=== PATIENT | male | born 1950 | race Caucasian/White ===

== ENCOUNTER → 2022-02-05 13:22 | Outpatient (BNVA) | payer BC, SELFPAY | PROVIDERS: PCP Nurse Practitioner Family; Visit Provider Nurse Practitioner Family | DX: I67.83 Posterior reversible encephalopathy syndrome (principal); R25.1 Tremor, unspecified; G47.33 Obstructive sleep apnea (adult) (pediatric); G62.9 Polyneuropathy, unspecified; G47.9 Sleep disorder, unspecified ==

== ENCOUNTER 2022-02-12 13:49 | Outpatient (REF) | payer BC, SELFPAY ==
--- NOTE | ~2022-02-12 | MR_ITS ---
EXAMINATION: MRI BRAIN WITHOUT CONTRAST. CLINICAL INFORMATION: Clinical suspicion of posterior reversible encephalopathy. COMPARISON: 10/06/2017 outside MRI. TECHNIQUE: Multiplanar multisequence MR imaging of the brain was done. FINDINGS: BRAIN VOLUME: Mild generalized diffuse brain parenchymal volume loss, similar to the previous MRI. STRUCTURAL: No malformations. 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 Redemonstrated are scattered patchy and punctate zones of FLAIR/T2 signal hyperintensity in the subcortical and deeper white matter of both cerebral hemispheres with areas of confluence in the periatrial regions which have slightly progressed from previous exam consistent with chronic ischemic microangiopathy. There is no convincing evidence for posterior reversible encephalopathy. There is a 7 mm T2 hyperintensity involving the left paracentral lobule in a parasagittal location which is unchanged when compared to the previous study, with no associated mass effect. This is a nonspecific finding. DWI sequence demonstrates no restricted diffusion. Specifically, there is no evidence for acute or subacute cerebral ischemia. No extra-axial fluid collections, space-occupying process or mass effect. Gradient refocused imaging demonstrates no evidence for hemorrhage, hemosiderin staining or abnormal mineral deposition. VENTRICLES AND SUBARACHNOID SPACES: The ventricular system and subarachnoid spaces are consistent with mild volume loss without hydrocephalus stable in appearance. ORBITAL STRUCTURES: Bilateral lens extractions are noted. Otherwise, the visualized orbital structures are grossly unremarkable within the limitations of the study. VASCULAR: Signal voids are noted in the visualized major intracranial vessels. OSSEOUS STRUCTURES, SINUSES/MASTOIDS, EXTRACRANIAL SOFT TISSUES: Mild mucosal thickening in the ethmoid complex with nasal septal deviation is similar to the previous exam. Osseous marrow signal intensity appears within normal limits. Visualized extracranial soft tissue structures appear grossly unremarkable. MR/MR head/brain wo con IMPRESSION: 1. Mild progression of chronic ischemic microangiopathy in the white matter of both cerebral hemispheres since the previous study, with a chronic right occipitotemporal infarct in the right SALESPERSON SEWING MACHINES distribution since the previous exam and a stable tiny remote cerebellar hemispheric infarct on the left. 2. No definite evidence for posterior reversible encephalopathy as questioned clinically. 3. 7 mm nonspecific T2 hyperintense lesion in the left paracentral lobule which is stable from previous MRI, likely a benign finding of indeterminate etiology. 4. Diffuse generalized volume loss without hydrocephalus.
== END 2022-02-12 13:50 | disposition home or self-care (01) ==
LOC: HO.MRI 13:49
PROVIDERS: PCP Nurse Practitioner Family; Visit Provider Nurse Practitioner Family
DX: I67.83 Posterior reversible encephalopathy syndrome (principal); R25.1 Tremor, unspecified; I10 Essential (primary) hypertension
CPT/HCPCS: 70551

== ENCOUNTER → 2022-03-06 13:54 | Outpatient (REF) | payer BC, SELFPAY | LOC: HO.SL 13:54 | PROVIDERS: PCP Nurse Practitioner Family; Visit Provider Nurse Practitioner Family | DX: G47.33 Obstructive sleep apnea (adult) (pediatric) (principal) | CPT/HCPCS: 95806 ==

== ENCOUNTER 2022-06-05 13:40 | Outpatient (REF) | payer BC, SELFPAY ==
--- NOTE | 2022-06-05 08:11 | PFT_ITS ---
Forced vital capacity 92%, FEV1 69%, FEV1/FVC ratio is 55. FEF25/75 35% and MVV is 74%. Post bronchodilator therapy there is no significant improvement. Total lung capacity 97%. Residual volume 112%. Diffusion capacity 55%. CONCLUSION: Moderately severe obstructive airway disorder. There is no significant response to bronchodilator therapy. Clinical correlation is recommended. MD TRANG Guadalupe/MODL / [id number]
== END 2022-06-05 13:41 | disposition home or self-care (01) ==
LOC: HO.RESP 13:40
PROVIDERS: Visit Provider Internal Medicine
DX: J44.9 Chronic obstructive pulmonary disease, unspecified (principal); F17.200 Nicotine dependence, unspecified, uncomplicated
CPT/HCPCS: 94060; 94727; 94729

== ENCOUNTER → 2022-11-05 13:35 | Outpatient (BNVA) | payer BC, SELFPAY | PROVIDERS: PCP Nurse Practitioner Family; Visit Provider Nurse Practitioner Family | DX: Z13.89 Encounter for screening for other disorder (principal) ==

== ENCOUNTER → 2022-12-17 13:41 | Outpatient (BNVA) | payer BC, SELFPAY | PROVIDERS: PCP Nurse Practitioner Family; Visit Provider Internal Medicine | DX: J44.9 Chronic obstructive pulmonary disease, unspecified (principal); G47.34 Idiopathic sleep related nonobstructive alveolar hypoventilation; G47.33 Obstructive sleep apnea (adult) (pediatric); F17.210 Nicotine dependence, cigarettes, uncomplicated | CPT/HCPCS: 94618 ==

== ENCOUNTER → 2023-03-07 11:01 | Outpatient (BNVA) | payer BC, SELFPAY | PROVIDERS: PCP Nurse Practitioner Family; Visit Provider Nurse Practitioner Family ==

== ENCOUNTER 2023-06-19 14:15 | Outpatient (AMB) | payer BC, SELFPAY ==
--- NOTE | 2023-06-19 14:27 | A.OFFVIS_ITS ---
Intake Vital Signs 06/19/23 14:30 BP 114/60 Blood Pressure Location Lt brachial Position Sitting Pulse 79 Pulse Source Pulse Oximeter Pulse Oximetry (%) 93 Oxygen Delivery Method Room Air Intake Visit Reasons: COPD follow-up Allergies pseudoephedrine [From Sudafed] Allergy (Mild, Verified 06/19/23 16:09) Hives trazodone Allergy (Mild, Verified 06/19/23 16:09) Hives nicotene patch Allergy (Unknown, Uncoded 06/19/23 16:09) Rash Medication List - Last Reconciled 06/19/23 by Katelyn Metz MD apixaban (Eliquis) 5 mg PO BID betamethasone dipropionate 0.05% topical clobetasol-calcipotriene 0.05-0.005 % mL topical famotidine 40 mg PO DAILY hydrochlorothiazide 12.5 mg PO DAILY labetalol 200 mg PO BID lorazepam 0.25 - 0.5 mg (0.5 - 1 x 0.5 mg) PO BEDTIME PRN 30 days mecobalamin (vitamin B12) 1,000 mcg PO DAILY mirtazapine 7.5 mg PO BEDTIME 30 days nicotine (polacrilex) 2 mg PO Q2H rosuvastatin 40 mg PO DAILY sildenafil 0 mg PO thiamine HCl (vitamin B1) 100 mg PO DAILY tramadol 50 mg PO BEDTIME umeclidinium-vilanterol 62.5-25 mcg/actuation (Anoro Ellipta) 1 ea PO DAILY Do you need a note to return to daycare/school/sports/work: No HPI COPD follow-up HPI Details THIS PATIENT COMES AFTER 6 MONTHS FOR FOLLOW-UP. HE CLAIMS THAT HE IS DOING WELL WITHOUT ANY ATTACKS OF WHEEZING OR COUGH, HE DOES HAVE MILD SHORTNESS OF BREATH ON EXERTION. HE IS HAPPY WITH THE USE OF ANORO AND CLAIMS THAT IT HAS DEFINITELY IMPROVED HIS BREATHING. HE HAS NOT NEEDED TO USE THE RESCUE INHALER MUCH HE ALSO HAS SLEEP APNEA AND USES CPAP REGULARLY ALONG WITH O2 2 L/MINUTE. HE DOES NOT NEED TO USE OXYGEN DURING THE DAYTIME. HE IS VERY COMPLIANT TO THE USE OF CPAP. HE HAS BEEN A LONG-TIME SMOKER AND FINALLY SINCE 6 WEEKS AGO HAS QUIT COMPLETELY. [facility] Medical History Arthritis COPD (chronic obstructive pulmonary disease) HTN (hypertension) Lymphoma Smoker Tobacco use Surgical History H/O cervical spine surgery Hx of cataract surgery Family History Father Cancer Sister Breast cancer Social History (Updated 03/07/23 @ 11:29 by Christiana Villafana CMA) Household Members: Spouse Alcohol intake: current Alcohol intake frequency: a few times a month Patient Tobacco Use Status: Current someday Tobacco user Tobacco use type: Cigarette Cigarette Packs Per Day: 0.5 Cigarettes Per Day: 4 Current occupational status: retired Review of Systems Const All systems reviewed & are unremarkable except as noted in HPI and below Eyes Reports no additional complaints ENT Reports no additional complaints Card Denies chest pain, Denies irregular heart rhythm and Denies leg edema Resp Reports as per HPI GI Reports no additional complaints Reports no additional complaints Musc Reports arthralgias (Mild) Skin/Breast Details: He has extensive skin discoloration on the right all arm and leg and also on the whole back as a birthmark. 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, s/p treatment with R/TH ) Physical Exam Vital Signs: Last Vital Signs Pulse 79 06/19/23 14:30 BP 114/60 06/19/23 14:30 Pulse Ox 93 06/19/23 14:30 Oxygen Delivery Method Room Air 06/19/23 14:30 Const General: healthy appearing, comfortable, no acute distress, alert and awake Orientation/consciousness: patient oriented x3 HEENT Head: Yes normal to inspection General nose exam: No nasal polyps present and No nasal discharge present Face and sinus: Yes sinuses nontender Mouth: oropharynx normal Throat: Yes posterior oropharynx normal Eyes General: appearance normal, both eyes and all related structures Neck Neck: Yes normal visual inspection, Yes no lymphadenopathy, Yes trachea midline and Yes no JVD Thyroid: Thyroid normal Chest Chest palpation & inspection: normal inspection of the chest, normal palpation of entire chest wall and no tenderness Resp Other: Percussion note is resonant, he has good breath sounds on both sides only slightly distant. No wheezes, rhonchi or crepitations were heard . Cardio Palpation: normal PMI Rate: regular rate Rhythm: regular rhythm Heart sounds: no gallops and no murmurs Peripheral pulses: Peripheral pulses 2+ throughout GI Palpation (GI): Soft to palpation, nontender, No hepatosplenomegaly present and no masses Auscultation: normal bowel sounds Back/Spine/Pelvis Thoracic/Lumbar Spine: thoracic and lumbar spine normal to inspection Skin Other: This gentleman has extensive, [place] skin discoloration the right arm, right leg and the whole back, as congenital claus. Neuro General: patient oriented x3 and no focal motor deficits Cranial nerves: Yes CN's II-XII intact bilaterally Extrem General: Yes normal to inspection, Yes no clubbing, cyanosis or edema and Yes no calf tenderness Psych Appearance: grossly normal and well kempt Speech and movement: Normal speech and movement present Assessment & Plan Assessment & Plan (1) Smoker: Comment: History of 50 pack years of smoking, finally he has quit completely, except for 1 or 2 cigarettes off and on. Counseled that he should go quit completely and for ever. He is well motivated. Code(s): F17.200 - Nicotine dependence, unspecified, uncomplicated (2) COPD (chronic obstructive pulmonary disease): Comment: Because of his long-time smoking he does have features of chronic obstructive disease. PULMONARY FUNCTION TEST CONSISTENT WITH MODERATELY SEVERE OBSTRUCTIVE AIRWAY DISORDER. NO RESPONSE TO BRONCHODILATOR THERAPY. [place]: Patient has been on Anoro Ellipta 1 inhalation daily and subjectively he definitely feels better. Will be continued on the same. 6 minutes walk test is done. He desaturated down to 91% but not below that. So he would not need oxygen for daytime. Code(s): J44.9 - Chronic obstructive pulmonary disease, unspecified (3) Obstructive sleep apnea: Comment: Patient is an establish case of obstructive sleep apnea, being treated with CPAP. He is being [facility] at [facility] sleep medicine service. Code(s): G47.33 - Obstructive sleep apnea (adult) (pediatric) (4) Nocturnal hypoxemia: Comment: This gentleman has evidence of nocturnal hypoxemia even with the use of CPAP. Regionally he was hesitant to go on oxygen but now, he is using it regularly at 2 L/minute. He is also using his CPAP regularly, and sleeps good. Code(s): G47.34 - Idiopathic sleep related nonobstructive alveolar hypoventilation Coding Level of Care Code Est Pt Level 3 (55616) Diagnoses Smoker F17.200 COPD (chronic obstructive pulmonary disease) J44.9 Obstructive sleep apnea G47.33 Nocturnal hypoxemia G47.34
[2023-06-19 14:30] VITALS: BP 114/60; PULSE 79; O2SAT 93
== END 2023-06-19 14:56 | disposition home or self-care (01) ==
PROVIDERS: PCP Nurse Practitioner Family; Visit Provider Internal Medicine
DX: F17.200 Nicotine dependence, unspecified, uncomplicated (principal); J44.9 Chronic obstructive pulmonary disease, unspecified; G47.33 Obstructive sleep apnea (adult) (pediatric); G47.34 Idiopathic sleep related nonobstructive alveolar hypoventilation
CPT/HCPCS: 99213

== ENCOUNTER → 2023-06-19 14:15 | Outpatient (BNVA) | payer BC, SELFPAY | PROVIDERS: Visit Provider Internal Medicine ==

== ENCOUNTER 2023-07-08 14:07 | Outpatient (AMB) | payer BC, SELFPAY ==
--- NOTE | 2023-07-08 14:09 | A.OFFVIS_ITS ---
Intake Vital Signs 07/08/23 14:12 Height 5 ft 6 in Weight 167 lb BMI 27.0 BP 130/72 Blood Pressure Location Rt brachial Position Sitting Pulse 58 Pulse Source Pulse Oximeter Pulse Oximetry (%) 96 Oxygen Delivery Method Room Air Intake Visit Reasons: 4m follow up-Confirmed Intake Note: Patient presents for 4 month follow up. Patient states I've had a lot of stuff going on my sleep is out the window. had surgery on my shoulder,tooth pulled and fractured some ribs from a fall about 3 to 4 weeks ago. Allergies pseudoephedrine [From Sudafed] Allergy (Mild, Verified 07/08/23 14:14) Hives trazodone Allergy (Mild, Verified 07/08/23 14:14) Hives nicotene patch Allergy (Unknown, Uncoded 07/08/23 14:14) Rash HPI HPI Comments History of Present Illness Details 73-yr-old male presents for f/u visit. Pt reports since the last visit, he sustained left rib fx d/t a trip and fall on his deck. He also had an unexpected tooth loss and then a tooth extraction. He then underwent, left shoulder repair on 06/26/23- which was uncomplicated, he plans to start PT once cleared by ortho. He was given Tramadol for the rib pain- which did help him sleep. He states had been complaint w/ his CPAP, although has had decreased use after 06/26/23 when he had the left shoulder surgery. APAP compliance report shows- APAP [id number], max pressure 10.5 cmH2O, average use > 8 hrs, compliance > 4 hrs 60%, residual AHI 3.2/hr (central 1.7 and obstructive 1.1). PFSH Medical History Arthritis COPD (chronic obstructive pulmonary disease) HTN (hypertension) Lymphoma Smoker Tobacco use Surgical History Hx of cataract surgery H/O cervical spine surgery Family History Father Cancer Sister Breast cancer Social History Household Members: Spouse Alcohol intake: current Alcohol intake frequency: a few times a month Patient Tobacco Use Status: Current someday Tobacco user Tobacco use type: Cigarette Cigarette Packs Per Day: 0.5 Cigarettes Per Day: 4 Current occupational status: retired Review of Systems Const All systems reviewed & are unremarkable except as noted in HPI and below Physical Exam Vital Signs: Last Vital Signs Pulse 58 07/08/23 14:12 BP 130/72 07/08/23 14:12 Pulse Ox 96 07/08/23 14:12 Oxygen Delivery Method Room Air 07/08/23 14:12 BMI result Body Mass Index 27.0 Const General: cooperative and no acute distress Orientation/consciousness: patient oriented x3 HEENT Head: Yes normocephalic Resp Effort & Inspection: normal respiratory effort and able to speak in complete sen tences Neuro General: patient oriented x3, gait normal and CN's II-XI intact bilaterally Cognition (Neuro): normal cognition Motor exam (neuro): 5/5 motor strength present throughout Psych Appearance: grossly normal Mental Status: mental status grossly normal Speech and movement: Normal speech and movement present Affect: normal affect Attitude: cooperative Thought process: Normal thought process present Thought content: Normal thought content present Insight: Good insight present (Psych) Judgement: Good judgement present (Psych) Assessment & Plan Assessment & Plan (1) Obstructive sleep apnea: Comment: Patient is an establish case of obstructive sleep apnea, being treated with CPAP. He is being followed at [facility] sleep medicine service. Code(s): G47.33 - Obstructive sleep apnea (adult) (pediatric) (2) Sleep disorder: Code(s): G47.9 - Sleep disorder, unspecified (3) Tremor: Code(s): R25.1 - Tremor, unspecified Plan Continue APAP 5-20 cmH2O nightly > 4 hrs. Continue nocturnal supplemental O2 at 2lpm via in-line APAP. Continue Mirtazapine 7.5mg qhs- around 11pm-12am. Monitor tremor. f/u in 4 months or sooner prn. Coding Level of Care Code Est Pt Level 4 (34382) Diagnoses Obstructive sleep apnea G47.33 Sleep disorder G47.9 Tremor R25.1
[2023-07-08 14:12] VITALS: BP 130/72; PULSE 58; O2SAT 96; BMI 27.0
== END 2023-07-08 14:54 | disposition home or self-care (01) ==
PROVIDERS: PCP Nurse Practitioner Family; Visit Provider Nurse Practitioner Family
DX: G47.33 Obstructive sleep apnea (adult) (pediatric) (principal); G47.9 Sleep disorder, unspecified; R25.1 Tremor, unspecified
CPT/HCPCS: 99214

== ENCOUNTER → 2023-07-08 14:07 | Outpatient (BNVA) | payer BC, SELFPAY | PROVIDERS: PCP Nurse Practitioner Family; Visit Provider Nurse Practitioner Family ==

== ENCOUNTER 2023-12-23 14:47 | Outpatient (AMB) | payer BC, SELFPAY ==
--- NOTE | 2023-12-23 15:18 | MHC.OFFVIS ---
Vital Signs 12/23/23 15:19 Height 5 ft 6 in Weight 174 lb BMI 28.1 BP 102/64 Pulse 61 Pulse Source Pulse Oximeter Pulse Oximetry (%) 97 Oxygen Delivery Method Room Air Intake Visit Reasons: COPD follow-up Intake Note: pt is here for follow up and states he is feeling good. Practice Coordinator Required: No Allergies pseudoephedrine [From Sudafed] Allergy (Mild, Verified 12/23/23 15:23) Hives trazodone Allergy (Mild, Verified 12/23/23 15:23) Hives nicotene patch Allergy (Unknown, Uncoded 12/23/23 15:23) Rash HPI HPI COPD follow-up: Details: MR. GONZALEZ , 73 YEARS OLD, IS HERE FOR FOLLOW-UP FOR HIS COPD. HE CLAIMS THAT HIS BREATHING IS HOLDING VERY STABLE, HE DOES USE ANORO ELLIPTA EVERY DAY AND HARDLY NEEDS TO USE THE ALBUTEROL. HE HAS VERY LITTLE COUGH. DENIES ANY SHORTNESS OF BREATH ON EXERTION HE DENIES ANY ATTACKS OF WHEEZING. LUCKILY HE HAS HAD NO RESPIRATORY INFECTION. HE QUIT SMOKING IN 2022 AND AFTER THAT, HAS SMOKED ONLY 1 CIGARETTE ONCE IN A WHILE. HE HAS NICOTINE PATCH AT HOME BUT USES ONLY IF HE GETS AN URGE TO SMOKE. HE IS ALSO CASE OF OBSTRUCTIVE SLEEP APNEA USING CPAP AT NIGHT WELL O2 2 L/MINUTE ALONG WITH THE CPAP. FOR HIS CPAP HE IS BEING FOLLOWED BY THE SLEEP MEDICINE SERVICE . [facility] Medical History Smoker HTN (hypertension) Tobacco use COPD (chronic obstructive pulmonary disease) Lymphoma Arthritis Surgical History Hx of cataract surgery H/O cervical spine surgery Family History Father Cancer Sister Breast cancer Social History Household Members: Spouse Alcohol intake: current Alcohol intake frequency: a few times a month Patient Tobacco Use Status: Former Tobacco user Tobacco use type: Cigarette Cigarette Packs Per Day: 0.5 Cigarettes Per Day: 4 Current occupational status: retired Review of Systems Const All systems reviewed & are unremarkable except as noted in HPI and below Eyes Reports no additional complaints ENT Reports no additional complaints Card Denies chest pain, Denies irregular heart rhythm and Denies leg edema Resp Reports as per HPI GI Reports no additional complaints Reports no additional complaints Musc Reports arthralgias (Mild) Skin/Breast Details: He has extensive skin discoloration on the right all arm and leg and also on the whole back as a birthmark. 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, s/p treatment with R/TH ) Physical Exam Vital Signs: Last Vital Signs Pulse 61 12/23/23 15:19 BP 102/64 12/23/23 15:19 Pulse Ox 97 12/23/23 15:19 Oxygen Delivery Method Room Air 12/23/23 15:19 BMI result Body Mass Index 28.1 Const General: healthy appearing, comfortable, no acute distress, alert and awake Orientation/consciousness: patient oriented x3 HEENT Head: Yes normal to inspection General nose exam: No nasal polyps present and No nasal discharge present Face and sinus: Yes sinuses nontender Mouth: oropharynx normal Throat: Yes posterior oropharynx normal Eyes General: appearance normal, both eyes and all related structures Neck Neck: Yes normal visual inspection, Yes no lymphadenopathy, Yes trachea midline and Yes no JVD Thyroid: Thyroid normal Chest Chest palpation & inspection: normal inspection of the chest, normal palpation of entire chest wall and no tenderness Resp Other: Percussion note is resonant, he has good breath sounds on both sides only slightly distant. No wheezes, rhonchi or crepitations were heard . Cardio Palpation: normal PMI Rate: regular rate Rhythm: regular rhythm Heart sounds: no gallops and no murmurs Peripheral pulses: Peripheral pulses 2+ throughout GI Palpation (GI): Soft to palpation, nontender, No hepatosplenomegaly present and no masses Auscultation: normal bowel sounds Back/Spine/Pelvis Thoracic/Lumbar Spine: thoracic and lumbar spine normal to inspection Skin Other: This gentleman has extensive, [place] skin discoloration the right arm, right leg and the whole back, as congenital claus. Neuro General: patient oriented x3 and no focal motor deficits Cranial nerves: Yes CN's II-XII intact bilaterally Extrem General: Yes normal to inspection, Yes no clubbing, cyanosis or edema and Yes no calf tenderness Psych Appearance: grossly normal and well kempt Speech and movement: Normal speech and movement present Assessment & Plan Assessment & Plan (1) COPD (chronic obstructive pulmonary disease): Comment: PULMONARY FUNCTION TEST CONSISTENT WITH MODERATELY SEVERE OBSTRUCTIVE AIRWAY DISORDER. NO RESPONSE TO BRONCHODILATOR THERAPY. COPD IS STAYING CONTROLLED AND STABLE. HE HAS HAD NO ACUTE EXACERBATIONS. 6 minutes walk test is done. He desaturated down to 91% but not below that. So he would not need oxygen for daytime. Code(s): J44.9 - Chronic obstructive pulmonary disease, unspecified Category: Medical Plan: TX: Patient has been on Anoro Ellipta 1 inhalation daily and subjectively he definitely feels better. ALBUTEROL HFA WHICH HE USES ONLY RARELY. (2) Nocturnal hypoxemia: Comment: This gentleman has evidence of nocturnal hypoxemia even with the use of CPAP. Regionally he was hesitant to go on oxygen but now, he is using it regularly at 2 L/minute. He is also using his CPAP regularly, and sleeps good. Code(s): G47.34 - Idiopathic sleep related nonobstructive alveolar hypoventilation Category: Medical Plan: CONTINUE O2 2 L/MINUTE ALONG WITH THE CPAP AT NIGHT. MAY USE P.R.N. FOR SHORT PERIODS DURING THE DAYTIME (3) Smoker: Comment: History of 50 pack years of smoking, finally he has quit completely SINCE LAST YEAR, except for 1 or 2 cigarettes off and on. He is well motivated. Code(s): F17.200 - Nicotine dependence, unspecified, uncomplicated Category: Social Hx Plan: COUNSELED THAT HE SHOULD THROAT WAY THE CIGARETTES, AND DO NOT GO BACK TO SMOKING AT ALL HE DOES GET LOW DOES CT SCAN OF HIS LUNGS ON A YEARLY BASIS AT [facility] Coding Level of Care Code Est Pt Level 3 (27371) Diagnoses COPD (chronic obstructive pulmonary disease) J44.9 Nocturnal hypoxemia G47.34 Smoker F17.200
[2023-12-23 15:19] VITALS: BP 102/64; PULSE 61; O2SAT 97; BMI 28.1
== END 2023-12-23 15:57 | disposition home or self-care (01) ==
PROVIDERS: PCP Nurse Practitioner Family; Visit Provider Internal Medicine
DX: J44.9 Chronic obstructive pulmonary disease, unspecified (principal); G47.34 Idiopathic sleep related nonobstructive alveolar hypoventilation; F17.200 Nicotine dependence, unspecified, uncomplicated
CPT/HCPCS: 99213

== ENCOUNTER → 2023-12-23 14:47 | Outpatient (BNVA) | payer BC, SELFPAY | PROVIDERS: PCP Nurse Practitioner Family; Visit Provider Internal Medicine ==

== ENCOUNTER 2024-06-23 13:55 | Outpatient (AMB) | payer BC, SELFPAY ==
[2024-06-23 14:08] VITALS: BP 160/80; PULSE 60; O2SAT 97; BMI 28.1
--- NOTE | 2024-06-23 14:08 | A.OFFVIS_ITS ---
Vital Signs 06/23/24 14:08 Height 5 ft 6 in Weight 174 lb BMI 28.1 BP 160/80 H Blood Pressure Location Lt brachial Position Sitting Pulse 60 Pulse Source Pulse Oximeter Pulse Oximetry (%) 97 Oxygen Delivery Method Room Air Intake Visit Reasons: COPD Intake Note: pt is here for follow up of BRENDA and COPD, Correctional Manager Required: No Allergies pseudoephedrine [From Sudafed] Allergy (Mild, Verified 06/23/24 14:20) Hives trazodone Allergy (Mild, Verified 06/23/24 14:20) Hives nicotene patch Allergy (Unknown, Uncoded 06/23/24 14:20) Rash Medication List - Last Reconciled 06/23/24 by Katelyn Metz MD apixaban (Eliquis) 5 mg PO BID betamethasone dipropionate 0.05% topical clobetasol-calcipotriene 0.05-0.005 % mL topical famotidine 40 mg PO DAILY labetalol 200 mg PO BID mecobalamin (vitamin B12) 1,000 mcg PO DAILY rosuvastatin 40 mg PO DAILY sildenafil 0 mg PO thiamine HCl (vitamin B1) 100 mg PO DAILY umeclidinium-vilanterol 62.5-25 mcg/actuation (Anoro Ellipta) 1 ea PO DAILY Do you need a note to return to daycare/school/sports/work: No HPI HPI COPD: Details: This 73 years old gentleman is here for his 6 months follow-up, for COPD. He also is a case of obstructive sleep apnea and uses CPAP very regularly. He was being followed by the sleep medicine services but has not seen them for more than a year. He would like to be followed up for his CPAP also over here at our office. He had quit smoking for a while but in the last few months he has been dealing with his 's sickness. His had a stroke , recovered almost completely and sent to rehab facility, from where she was admitted a few times with acute respiratory distress at at 1 [facility] at [facility] [place] requiring intubation. Now she is home and doing fairly well. During these stressful few months he started smoking again. Now smoking up to 10 cigarettes a day and is trying to down as much as possible. Breathing has remained very stable and he hardly needs to use the rescue inhaler. [facility] Medical History Smoker HTN (hypertension) Tobacco use COPD (chronic obstructive pulmonary disease) Lymphoma Arthritis Surgical History Hx of cataract surgery H/O cervical spine surgery Family History Father Cancer Sister Breast cancer Social History Household Members: Spouse Alcohol intake: current Alcohol intake frequency: a few times a month Patient Tobacco Use Status: Current everyday Tobacco user Tobacco use type: Cigarette Cigarette Packs Per Day: 0.5 Cigarettes Per Day: 10 Current occupational status: retired Review of Systems Const All systems reviewed & are unremarkable except as noted in HPI and below Eyes Reports no additional complaints ENT Reports no additional complaints Card Denies chest pain, Denies irregular heart rhythm and Denies leg edema Resp Reports as per HPI GI Reports no additional complaints Reports no additional complaints Musc Reports arthralgias (Mild) Skin/Breast Details: He has extensive skin discoloration on the right all arm and leg and also on the whole back as a birthmark. 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, s/p treatment with R/TH ) Physical Exam Vital Signs: Last Vital Signs Pulse 60 06/23/24 14:08 BP 160/80 H 06/23/24 14:08 Pulse Ox 97 06/23/24 14:08 Oxygen Delivery Method Room Air 06/23/24 14:08 BMI result Body Mass Index 28.1 Const General: healthy appearing, comfortable, no acute distress, alert and awake Orientation/consciousness: patient oriented x3 HEENT Head: Yes normal to inspection General nose exam: No nasal polyps present and No nasal discharge present Face and sinus: Yes sinuses nontender Mouth: oropharynx normal Throat: Yes posterior oropharynx normal Eyes General: appearance normal, both eyes and all related structures Neck Neck: Yes normal visual inspection, Yes no lymphadenopathy, Yes trachea midline and Yes no JVD Thyroid: Thyroid normal Chest Chest palpation & inspection: normal inspection of the chest, normal palpation of entire chest wall and no tenderness Resp Other: Percussion note is resonant, he has good breath sounds on both sides only slightly distant. No wheezes, rhonchi or crepitations were heard . 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 Neuro General: patient oriented x3 and no focal motor deficits Cranial nerves: Yes CN's II-XII intact bilaterally Extrem General: Yes normal to inspection, Yes no clubbing, cyanosis or edema and Yes no calf tenderness Psych Appearance: grossly normal and well kempt Speech and movement: Normal speech and movement present Results Reviewed Results Reviewed: Compliance report for the last 30 nights is reviewed. He has used 30/30 nights,. 100% Average use it per night 9 hours 39 minute. There is no significant air leak and pressure used is between 7-9 cm. Residual AHI 0.8 Assessment & Plan Assessment & Plan (1) COPD (chronic obstructive pulmonary disease): Comment: PULMONARY FUNCTION TEST CONSISTENT WITH MODERATELY SEVERE OBSTRUCTIVE AIRWAY DISORDER. NO RESPONSE TO BRONCHODILATOR THERAPY. COPD IS STAYING CONTROLLED AND STABLE. HE HAS HAD NO ACUTE EXACERBATIONS. On his last visit ,6 minutes walk test is done. He desaturated down to 91% but not below that. So he would not need oxygen for daytime. Code(s): J44.9 - Chronic obstructive pulmonary disease, unspecified Category: Medical Plan: Counseled and stressed that he should quit smoking completely, he may do it by cutting down the number of cigarettes gradually. He plans to finally quit smoking. (2) Smoker: Comment: History of 50 pack years of smoking, he had quit smoking last year what to in the past few months has started smoking again ,at present half pack a day . He states that he went back to smoking to alleviate his stress and anxiety when his suffered from acute stroke. Code(s): F17.200 - Nicotine dependence, unspecified, uncomplicated Category: Social Hx Plan: Counseled that he should quit smoking (3) Nocturnal hypoxemia: Comment: This gentleman has evidence of nocturnal hypoxemia even with the use of CPAP. Originally he was hesitant to go on oxygen but now, he is using it regularly at 2 L/minute along with the CPAP. Code(s): G47.34 - Idiopathic sleep related nonobstructive alveolar hypoventilation Category: Medical Plan: Advise that he should use O2 2 L/minute along with the CPAP at night (4) Obstructive sleep apnea: Comment: Patient is an established case of obstructive sleep apnea, being treated with CPAP. His compliance is excellent, he benefits from the use of CPAP plus O2 2 L/minute along with his CPAP. Code(s): G47.33 - Obstructive sleep apnea (adult) (pediatric) Category: Medical Plan: Advised to continue using the CPAP regularly. He is getting supplies on time. He wants us to manage his CPAP for the supplies, and we will be glad to take care of the. Coding Level of Care Code Est Pt Level 3 (86932) Diagnoses COPD (chronic obstructive pulmonary disease) J44.9 Smoker F17.200 Nocturnal hypoxemia G47.34 Obstructive sleep apnea G47.33
== END 2024-06-23 14:35 | disposition home or self-care (01) ==
PROVIDERS: PCP Family Medicine; Visit Provider Internal Medicine
DX: J44.9 Chronic obstructive pulmonary disease, unspecified (principal); F17.200 Nicotine dependence, unspecified, uncomplicated; G47.34 Idiopathic sleep related nonobstructive alveolar hypoventilation; G47.33 Obstructive sleep apnea (adult) (pediatric)
CPT/HCPCS: 99213

== ENCOUNTER → 2024-06-23 13:55 | Outpatient (BNVA) | payer BC, SELFPAY | PROVIDERS: PCP Nurse Practitioner Family; Visit Provider Internal Medicine ==

== ENCOUNTER 2024-12-23 14:01 | Outpatient (AMB) | payer BC, SELFPAY ==
[2024-12-23 14:04] VITALS: BP 130/82; PULSE 56; O2SAT 96; BMI 28.3
--- NOTE | 2024-12-23 14:04 | A.OFFVIS_ITS ---
Vital Signs 12/23/24 14:04 Height 5 ft 6 in Weight 175 lb 4.28 oz BMI 28.3 BP 130/82 Blood Pressure Location Lt brachial Pulse 56 Pulse Source Pulse Oximeter Pulse Oximetry (%) 96 Oxygen Delivery Method Room Air Intake Visit Reasons: COPD Intake Note: pt is here for follow up and states he does have more coughing especially in am with phlegm, please put refills on Anoro so he does not have wait each month at the pharmacy Sourcing Assistant Required: No Allergies pseudoephedrine [From Sudafed] Allergy (Mild, Verified 12/23/24 14:23) Hives trazodone Allergy (Mild, Verified 12/23/24 14:23) Hives nicotene patch Allergy (Unknown, Uncoded 12/23/24 14:23) Rash Medication List - Last Reconciled 12/23/24 by Katelyn Metz MD apixaban (Eliquis) 5 mg PO BID betamethasone dipropionate 0.05% topical clobetasol-calcipotriene 0.05-0.005 % mL topical famotidine 40 mg PO DAILY labetalol 200 mg PO BID mecobalamin (vitamin B12) 1,000 mcg PO DAILY rosuvastatin 40 mg PO DAILY sildenafil 0 mg PO thiamine HCl (vitamin B1) 100 mg PO DAILY umeclidinium-vilanterol 62.5-25 mcg/actuation (Anoro Ellipta) 1 ea PO DAILY Do you need a note to return to daycare/school/sports/work: No HPI HPI COPD: Details: MR. GONZALEZ 74 YEARS OLD, COMES AFTER 6 MONTHS FOR HIS FOLLOW-UP. HE IS BEING TREATED FOR MODERATELY SEVERE OBSTRUCTIVE LUNG DISEASE AND ALSO FOR SLEEP APNEA. BREATHING GAONA HAS REMAINED VERY STABLE WITHOUT ANY ACUTE EXACERBATION. HE STILL VEERS A MASK MOST OF THE TIME WHEN HE GOES OUTDOORS, BECAUSE HE DOES NOT WANT TO BRING ANY BUGS HOME HIS HAS TRACHEOSTOMY. HIS ALSO USES OXYGEN VIA TRACH , NEEDS FREQUENT SUCTIONING, AND HUMIDIFICATION. HE HAS NOT BEEN ABLE TO USE OXYGEN ALONG WITH THE CPAP AT NIGHT, BECAUSE HIS O2 CONCENTRATOR MAKES LOT OF NOISE , AND HE WANTS TO MAKE SURE THAT HE CAN HEAR ANY INCIDENCE IS HAPPENING TO HIS WHO HAS SLEEPS ON THE 1ST FLOOR , WHILE HE SLEEPS ON THE 2ND FLOOR, [facility] Medical History Smoker HTN (hypertension) Tobacco use COPD (chronic obstructive pulmonary disease) Lymphoma Arthritis Surgical History Hx of cataract surgery H/O cervical spine surgery Family History Father Cancer Sister Breast cancer Social History Household Members: Spouse Alcohol intake: current Alcohol intake frequency: a few times a month Patient Tobacco Use Status: Current everyday Tobacco user Tobacco use type: Cigarette Cigarette Packs Per Day: 0.5 Cigarettes Per Day: 10 Current occupational status: retired Review of Systems Const All systems reviewed & are unremarkable except as noted in HPI and below Eyes Reports no additional complaints ENT Reports no additional complaints Card Denies chest pain, Denies irregular heart rhythm and Denies leg edema Resp Reports as per HPI GI Reports no additional complaints Reports no additional complaints Musc Reports arthralgias (Mild) Skin/Breast Details: He has extensive skin discoloration on the right all arm and leg and also on the whole back as a birthmark. 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, s/p treatment with R/TH ) Physical Exam Vital Signs: Last Vital Signs Pulse 56 12/23/24 14:04 BP 130/82 12/23/24 14:04 Pulse Ox 96 12/23/24 14:04 Oxygen Delivery Method Room Air 12/23/24 14:04 BMI result Body Mass Index 28.3 Const General: healthy appearing, comfortable, no acute distress, alert and awake Orientation/consciousness: patient oriented x3 HEENT Head: Yes normal to inspection General nose exam: No nasal polyps present and No nasal discharge present Face and sinus: Yes sinuses nontender Mouth: oropharynx normal Throat: Yes posterior oropharynx normal Eyes General: appearance normal, both eyes and all related structures Neck Neck: Yes normal visual inspection, Yes no lymphadenopathy, Yes trachea midline and Yes no JVD Thyroid: Thyroid normal Chest Chest palpation & inspection: normal inspection of the chest, normal palpation of entire chest wall and no tenderness Resp Other: Percussion note is resonant, he has good breath sounds on both sides only slightly distant. No wheezes, rhonchi or crepitations were heard . 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 Neuro General: patient oriented x3 and no focal motor deficits Cranial nerves: Yes CN's II-XII intact bilaterally Extrem General: Yes normal to inspection, Yes no clubbing, cyanosis or edema and Yes no calf tenderness Psych Appearance: grossly normal and well kempt Speech and movement: Normal speech and movement present Assessment & Plan Assessment & Plan (1) COPD (chronic obstructive pulmonary disease): Comment: PULMONARY FUNCTION TEST CONSISTENT WITH MODERATELY SEVERE OBSTRUCTIVE AIRWAY DISORDER. NO RESPONSE TO BRONCHODILATOR THERAPY. COPD IS STAYING CONTROLLED AND STABLE. HE HAS HAD NO ACUTE EXACERBATIONS. Code(s): J44.9 - Chronic obstructive pulmonary disease, unspecified Category: Medical Plan: CONTINUE TO USE ANORO ELLIPTA 1 INHALATION DAILY , PRESCRIPTION IS RENEWED FOR 90 DAYS' SUPPLY IT IT TIME AND 3 REFILLS. HE HAS NOT REQUIRED TO USE THE RESCUE INHALER. (2) Nocturnal hypoxemia: Comment: This gentleman has evidence of nocturnal hypoxemia even with the use of CPAP. He was using O2 2 L/minute along with the CPAP. But now since his 's sickness who has had a permanent trach , he is not using O2 to avoid any noise . Code(s): G47.34 - Idiopathic sleep related nonobstructive alveolar hypoventilation Category: Medical Plan: I think we should do overnight oximetry recording to see if he still needs the use of oxygen. (3) Smoker: Comment: History of 50 pack years of smoking, he had quit 2 years ago but then went back to smoking due to his 's illness and stressful situation. At present he is smoking about 10 cigarettes a day. Code(s): F17.200 - Nicotine dependence, unspecified, uncomplicated Category: Social Hx Plan: Discussed about quitting, he will try to cut down the number of cigarettes. But say is he can not quit completely as he is still under stress. (4) Obstructive sleep apnea: Comment: Patient is an established case of obstructive sleep apnea, being treated with CPAP. His compliance is excellent, he benefits from the use of CPAP plus O2 2 L/minute along with his CPAP. As has been noted above he is currently not using oxygen along with the CPAP. Code(s): G47.33 - Obstructive sleep apnea (adult) (pediatric) Category: Medical Plan: Continue to use CPAP regularly.. Will do overnight oximetry recording N/C if his O2 sat stays in safe range, otherwise he needs to resume using the O2 at night Medications: New umeclidinium-vilanterol 62.5-25 mcg/actuation (Anoro Ellipta) 1 inh inhalation DAILY 60 ea 3RF copd 90 days Coding Level of Care Code Est Pt Level 3 (98830) Diagnoses COPD (chronic obstructive pulmonary disease) J44.9 Nocturnal hypoxemia G47.34 Smoker F17.200 Obstructive sleep apnea G47.33
--- OUTSIDE RECORDS SUMMARY | 2024-12-23 16:28 | XMS_ITS | Clinical Summary ---
Author Organization [facility] Address [address] [place] [address] Care Team Providers Care Licensing Analyst Name Role Phone Unavailable Primary Care Provider Unavailabl e Social History Tobacco Use Types Packs/Day Years Used Date Smoking Tobacco: Never Assessed Sex and Gender Information Value Date Recorded Sex Assigned at Not on file Gender Identity Not on file Sexual Orientation Not on file Plan of Treatment Not on file
== END 2024-12-23 14:24 | disposition home or self-care (01) ==
LOC: HO.HPS 14:02
PROVIDERS: PCP Family Medicine; Visit Provider Internal Medicine
DX: J44.9 Chronic obstructive pulmonary disease, unspecified (principal); G47.34 Idiopathic sleep related nonobstructive alveolar hypoventilation; F17.200 Nicotine dependence, unspecified, uncomplicated; G47.33 Obstructive sleep apnea (adult) (pediatric)
CPT/HCPCS: 99213

== ENCOUNTER 2025-06-21 14:25 | Outpatient (AMB) | payer BC, SELFPAY ==
--- OUTSIDE RECORDS SUMMARY | 2023-05-28 18:20 | XMS_ITS | Encounter Summary ---
Author Organization [facility] Address [address] [place] [address] [place] [phone] Phone Care Team Providers Care Floater Operator Name Role Phone Jeanie Mohan MD Unavailable [phone] Ramos Mcgrath DO Unavailable Carmita Santiago BOILER ROOM OPERATOR Primary Care Provider Viki Melendrez FARM HELPER Unavailable Encounter Details Date Type Department Care Team (Late st Contact Info) Description 05/28/2023 6:20 PM EDT Hospital Encounter [facility] [address] [place] [address] Mayte Verdugo, BOILER ROOM OPERATOR [address] [place] [phone] [email or web address] Social History Tobacco Use Types Packs/Day Years Used Date Smoking Tobacco: Every Day Cigarettes 0.5 50 Started: 05/16/1973; Last attempted to quit: 05/16/2023 Smokeless Tobacco: Never Alcohol Use Standard Drinks/Week Comments Not Currently 4 (1 standard drink = 0.6 oz pure alcohol) drinks 3-4 bourbons every Friday Education Answer Date Recorded Are you interested in more education? Not on rebekah e 12/27/2022 Are you concerned about learning? Not on file 12/27/2022 No 12/27/2022 No 12/27/2022 Digital Access Answer Date Recorded No 01/27/2023 No 01/27/2023 Reliable internet access at home? Not on file 01/27/2023 Device with a working camera? Not on file Intimate Partner Violence Answer Date R ecorded Are you denied basic needs s uch as food, clothing, or medical care? No 10/22/2024 In the past 12 months have y ou been in a relationship with a person who hurts, threatens, or tries to control you? No 10/22/2024 Are you denied basic needs s uch as food, clothing, or medical care? No 10/22/2024 In the past 12 months have y ou been in a relationship with a person who hurts, threatens, or tries to control you? No 10/22/2024 Sex and Gender Information Value Date Recorded Sex Assigned at Male 09/08/2017 9:38 AM EST Legal Sex Male 9:59 PM EDT Gender Identity Male 09/08/2017 9:38 AM EST Sexual Orientation Straight 09/08/2017 9: 38 AM EST documented as of this encounter Functional Status * Calculated C-SSRS Risk Score (Lifetime/Recent) Answer Date of Assessment Author No Risk Indicated 10/22/2024 8:26 AM Eliezer Mahajan RN * [place] Suicide Severity Rating Scale (Screener/Recent Self-Report) Question Answer Date of Assessment Author 1. Wish to be (Past 1 Month) No 10/22/2024 8:26 AM Eliezer Mahajan RN 2. Non-Specific Active Suici greyson Thoughts (Past 1 Month) No 10/22/2024 8:26 AM Eulalio Mahajan RN 6. Suicidal Behavior (Lifetime) No 8:26 AM Eliezer Mahajan RN documented as of this encounter Plan of Treatment Upcoming Encounters Date Type Department Care Team (Latest Contact Info) Description 06/30/2025 Procedure Pass [facility] Admitting Dept Virtual Department [address] [place] [phone] 06/30/2025 2:00 PM EDT Hospital Encounter [facility] Virtual Department [address] [place] [address] Jose Marshall MD [address] [phone] [email or web address] 06/30/2025 2:00 PM EDT - 06/30/2025 2:30 PM EDT Surgery [facility] Admitting Dept Virtual Department [address] [place] [address] Jose Marshall MD [address] [place] [address] [email or web address] ESOPHAGOGASTRODUODENOSCOPY 07/08/2025 2:00 PM EST Office Visit [facility] [address] [place] [address] Ramos Mcgrath DO [address] [place] [address] [email or web address] 07/11/2025 3:00 PM EST Office Visit [facility] [address] [facility] 3rd Floor, [address] [place] [address] Belkis Ratliff PACosmeC [address] [place] [address] [email or web address] 09/07/2025 2:15 PM EST Office Visit [facility] [address] [place] [address] Unknown, Unknown, MD Mckeon, Zabrina Alford, EVAN [address] [place] [phone] Scheduled Procedures Name Priority Associated Diagnoses Date/Ti me ESOPHAGOGASTRODUODENOSCOPY Hx of colonic polyps 06/30/2025 2:00 PM EDT COLONOSCOPY Hx of colonic polyps 06/30/2025 2:00 PM EDT documented as of this encounter Procedures Procedure Name Priority Date/Time Associated Diagnosis Comments XR CHEST PA AND LATERAL 2 VIEWS Urgent/patient waiting 05/28/2023 6:33 PM EDT Fall as cause of accidental injury in home as place of occurrence, initial encounter documented in this encounter Results * XR CHEST PA AND LATERAL 2 VIEWS (05/28/2023 6:33 PM EDT) Anatomical Region Laterality Modality Chest Computed Radiogr aphy 05/28/2023 6:50 PM EDT Impressions 05/28/2023 7:04 PM EDT Acute mildly displaced left posterolateral fourth and fifth rib fractures. ATTESTATION: I, Kait Becerra as teaching physician, have reviewed the images for this case and if necessary edited the report originally created by Goldie Bruner. Narrative 05/28/2023 7:04 PM EDT XR CHEST PA AND LATERAL 2 VIEWS, XR RIBS 3 OR MORE VIEWS WITH PA CHEST (RIGHT) COMPARISON: CT CHEST WITH CONTRAST CHEST FINDINGS: Devices/Tubes/Lines: Loop recorder projects over the left lower chest. Lungs: Mild bibasilar atelectasis. No focal consolidation or pulmonary edema. Pleura: No pleural effusion or pneumothorax. Heart/Mediastinum: Normal heart size. Tortuous thoracic aorta. Bones/Soft Tissues: Acute mildly displaced left posterolateral fourth and fifth rib fractures. RIBS: Acute mildly displaced left posterolateral fourth and fifth rib fractures. No displaced right rib fractures. Procedure Note Kait Becerra MD - 05/28/2023 XR CHEST PA AND LATERAL 2 VIEWS, XR RIBS 3 OR MORE VIEWS WITH PA CHEST(RIGHT) COMPARISON: CT CHEST WITH CONTRAST 2022- CHEST FINDINGS: Devices/Tubes/Lines: Loop recorder projects over the left lower chest. Lungs: Mild bibasilar atelectasis. No focal consolidation or pulmonaryedema. Pleura: No pleural effusion or pneumothorax. Heart/Mediastinum: Normal heart size. Tortuous thoracic aorta. Bones/Soft Tissues: Acute mildly displaced left posterolateral fourth andfifth rib fractures. RIBS: Acute mildly displaced left posterolateral fourth and fifth ribfractures. No displaced right rib fractures. IMPRESSION: Acute mildly displaced left posterolateral fourth and fifth ribfractures. ATTESTATION: I, Kait Becerra as teaching physician, have reviewed theimages for this case and if necessary edited the report originally createdby Goldie Bruner. Mayte Verdugo BOILER ROOM OPERATOR IMG XR CHEST Final Resul t documented in this encounter Visit Diagnoses Not on filedocumented in this encounter Additional Health Concerns Infection Onset Date Last Indicated Resolved Time CDiff-Risk 03/29/2025 03/29/2025 04/05/2025 1:21 AM EDT documented as of this encounter Care Teams Floater Operator Relationship Specialty Start Date End Date Carmita Santiago CNP [address] [place] [phone] [email or web address] PCP - General Family Medicine 12/19/21 07/21/23 Jeanie Mohan MD [address] [place] [address] Orthopedics & Sports Medicine, [facility] [place] [address] [email or web address] Historical LMR Provider 06/19/17 Ramos Mcgrath DO [address] [place] [address] [email or web address] Primary Oncologist Hematology and Oncology 12/15/21 Viki Melendrez FNP [address] [place] [address] [email or web address] Nurse Practitioner Oncology 03/06/22 documented as of this encounter Additional Source Comments The information contained in this document represents components of the legal health record. It is not the complete legal health record.[facility]
--- OUTSIDE RECORDS SUMMARY | 2023-05-28 18:22 | XMS_ITS | Encounter Summary ---
Author Organization [facility] Address [address] [place] [address] [place] [address] Phone Care Team Providers Care Dynamite Reclaimer Name Role Phone Jeanie Mohan MD Unavailable [phone] Ramos Mcgrath DO Unavailable Carmita Santiago FLAG DECORATOR Primary Care Provider Viki Melendrez INTERNATIONAL BANKER Unavailable [phone] Encounter Details Date Type Department Care Team (Late st Contact Info) Description 05/28/2023 6:22 PM EDT Hospital Encounter [facility] [address] [place] [address] Mayte Verdugo, FLAG DECORATOR [address] [place] [address] [email or web address] Social History Tobacco Use Types Packs/Day Years [...] 10/22/2024 8:26 AM Eliezer Mahajan RN * [place] Suicide Severity Rating Scale (Screener/Recent Self-Report) Question [...] Pass [facility] Admitting [facility] Virtual Department [address] [place] [phone] 06/30/2025 2:00 PM EDT Hospital Encounter [facility] Virtual Department [address] [place] [address] Jose Marshall MD [address] [address] [email or web address] 06/30/2025 2:00 PM EDT - 06/30/2025 2:30 PM EDT Surgery [facility] Admitting Dept Virtual Department [address] [place] [address] Jose Marshall MD [address] [place] [address] [email or web address] ESOPHAGOGASTRODUODENOSCOPY 07/08/2025 2:00 PM EST Office Visit [facility] [address] [place] [address] Ramos Mcgrath DO [address] [place] [address] [email or web address] 07/11/2025 3:00 PM EST Office Visit [facility] [address] [facility] 3rd Floor, [address] [place] [address] Belkis Ratliff PA-C [address] [place] [address] [email or web address] 09/07/2025 2:15 PM EST Office Visit [facility] 10 [place] [address] Unknown, Unknown, MD Mckeon, Zabrina Alford, EVAN [address] [place] [address] Scheduled Procedures Name Priority Associated Diagnoses Date/Ti me ESOPHAGOGASTRODUODENOSCOPY Hx of colonic polyps 06/30/2025 2:00 PM EDT COLONOSCOPY Hx of colonic polyps 06/30/2025 2:00 PM EDT documented as of this encounter Procedures Procedure Name Priority Date/Time Associated Diagnosis Comments XR RIBS 3 OR MORE VIEWS WITH PA CHEST (RIGHT) Urgent/patient waiting 05/28/2023 6:34 PM EDT Fall as cause of accidental injury in home as place of occurrence, initial encounter documented in this encounter Results * XR RIBS 3 OR MORE VIEWS WITH PA CHEST (RIGHT) (05/28/2023 6:34 PM EDT) Anatomical Region Laterality Modality Chest [...] report originally createdby Goldie Bruner. Mayte Verdugo FLAG DECORATOR IMG XR CHEST Final Resul t documented in this encounter Visit Diagnoses Not on filedocumented in this encounter Additional Health Concerns Infection Onset Date Last Indicated Resolved Time CDiff-Risk 03/29/2025 03/29/2025 04/05/2025 1:21 AM EDT documented as of this encounter Care Teams Dynamite Reclaimer Relationship Specialty Start Date End Date Carmita Santiago CNP [address] [place] [phone] [email or web address] PCP - General Family Medicine 12/19/21 07/21/23 Jeanie Mohan MD [address] [place] [address] Orthopedics & Sports Medicine, [facility] [place] [address] [email or web address] Historical LMR Provider 06/19/17 Ramos Mcgrath DO [address] [place] [address] [email or web address] Primary Oncologist Hematology and Oncology 12/15/21 Viki Melendrez FNP [address] [place] [address] [email or web address] Nurse Practitioner Oncology 03/06/22 documented as of this encounter Additional Source Comments The information contained in this document represents components of the legal health record. It is not the complete legal health record.[facility]
--- NOTE | 2025-06-21 14:40 | MHC.OFFVIS ---
Vital Signs 06/21/25 14:41 Height 5 ft 6 in Weight 176 lb BMI 28.4 BP 124/78 Blood Pressure Location Lt brachial Position Sitting Pulse 71 Pulse Source Pulse Oximeter Pulse Oximetry (%) 94 Oxygen Delivery Method Room Air Intake Visit Reasons: COPD Intake Note: pt is here for follow up and has a little cough am and pm, during the day he is okay. Labor Custodian Required: No Allergies pseudoephedrine (From Sudafed) Allergy (Mild, Verified 06/21/25 15:13) Hives trazodone Allergy (Mild, Verified 06/21/25 15:13) Hives nicotene patch Allergy (Unknown, Uncoded 06/21/25 15:13) Rash Medication List - Last Reconciled 06/21/25 by Katelyn Metz MD amlodipine 2.5 mg PO DAILY apixaban (Eliquis) 5 mg PO BID betamethasone dipropionate 0.05% topical cetirizine (Zyrtec) 10 mg PO DAILY PRN clobetasol-calcipotriene 0.05-0.005 % mL topical famotidine 40 mg PO DAILY gabapentin 300 mg PO TID losartan 25 mg PO DAILY mecobalamin (vitamin B12) 1,000 mcg PO DAILY rosuvastatin 40 mg PO DAILY sildenafil 0 mg PO thiamine HCl (vitamin B1) 100 mg PO DAILY umeclidinium-vilanterol 62.5-25 mcg/actuation (Anoro Ellipta) 1 inh PO DAILY Do you need a note to return to daycare/school/sports/work: No HPI HPI COPD: Details: THIS 74 YEARS OLD VERY PLEASANT GENTLEMAN IS HERE FOR HIS ROUTINE FOLLOW-UP. HE IS A CASE OF OBSTRUCTIVE SLEEP APNEA BEING TREATED WITH CPAP AND HE USES THE CPAP VERY REGULARLY EVERY NIGHT. HIS SLEEPING TIME IS AFTER MIDNIGHT TO ABOUT 09:00 AM HE WAS FOUND TO HAVE NOCTURNAL HYPOXEMIA EVEN WITH THE USE OF CPAP. SO HE WAS ADVISED TO USE O2 2 L/MINUTE ALONG WITH THE CPAP. HE DOES HAVE THE O2 CONCENTRATOR AT HOME BUT THERE IS SOME PROBLEM WITH THE CONNECTION OF O2 INTO THE CPAP. MR. 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 HIS BREATHING HAS BEEN RELATIVELY STABLE EXCEPT FOR MILD INTERMITTENT COUGH. HE STILL SMOKES HALF PACK OF CIGARETTES A DAY. [facility] Medical History Smoker HTN (hypertension) Tobacco use COPD (chronic obstructive pulmonary disease) Lymphoma Arthritis Surgical History Hx of cataract surgery H/O cervical spine surgery Family History Father Cancer Sister Breast cancer Social History Household Members: Spouse Alcohol intake: current Alcohol intake frequency: a few times a month Patient Tobacco Use Status: Current everyday Tobacco user Tobacco use type: Cigarette Cigarette Packs Per Day: 0.5 Cigarettes Per Day: 10 Current occupational status: retired Review of Systems Const All systems reviewed & are unremarkable except as noted in HPI and below Eyes Reports no additional complaints ENT Reports no additional complaints Card Denies chest pain, Denies irregular heart rhythm and Denies leg edema Resp Reports as per HPI GI Reports no additional complaints Reports no additional complaints Musc Reports arthralgias (Mild) Skin/Breast Details: He has extensive skin discoloration on the right all arm and leg and also on the whole back as a birthmark. 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, s/p treatment with R/TH ) Physical Exam Vital Signs: Last Vital Signs Pulse 71 06/21/25 14:41 BP 124/78 06/21/25 14:41 Pulse Ox 94 06/21/25 14:41 Oxygen Delivery Method Room Air 06/21/25 14:41 BMI result Body Mass Index 28.4 Const General: healthy appearing, comfortable, no acute distress, alert and awake Orientation/consciousness: patient oriented x3 HEENT Head: Yes normal to inspection General nose exam: No nasal polyps present and No nasal discharge present Face and sinus: Yes sinuses nontender Mouth: oropharynx normal Throat: Yes posterior oropharynx normal Eyes General: appearance normal, both eyes and all related structures Neck Neck: Yes normal visual inspection, Yes no lymphadenopathy, Yes trachea midline and Yes no JVD Thyroid: Thyroid normal Chest Chest palpation & inspection: normal inspection of the chest, normal palpation of entire chest wall and no tenderness Resp Other: Percussion note is resonant, he has good breath sounds on both sides only slightly distant. No wheezes, rhonchi or crepitations were heard . 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 Neuro General: patient oriented x3 and no focal motor deficits Cranial nerves: Yes CN's II-XII intact bilaterally Extrem General: Yes normal to inspection, Yes no clubbing, cyanosis or edema and Yes no calf tenderness Psych Appearance: grossly normal and well kempt Speech and movement: Normal speech and movement present Results Reviewed Results Reviewed: COMPLIANCE REPORT FOR THE LAST 30 NIGHTS IS REVIEWED. HE USES CPAP 30/30 NIGHTS, 100%. HIS AVERAGE USAGE IS ACTUALLY 9 HOURS 58 MINUTES. HE HAS NO RESIDUAL SLEEP APNEA AHI 0.9 OVERNIGHT OXIMETRY RECORDING ON 01/19/2025, RECORDED O2 SAT BELOW 88% FOR 1 HOUR 47 MINUTES Assessment & Plan Assessment & Plan (1) COPD (chronic obstructive pulmonary disease): Comment: PULMONARY FUNCTION TEST CONSISTENT WITH MODERATELY SEVERE OBSTRUCTIVE AIRWAY DISORDER. NO RESPONSE TO BRONCHODILATOR THERAPY. COPD IS STAYING CONTROLLED AND STABLE. HE HAS HAD NO ACUTE EXACERBATIONS. CONTINUE TO USE ANORO ELLIPTA 1 INHALATION DAILY AND USES ALBUTEROL ONLY ONCE IN A WHILE. Code(s): J44.9 - Chronic obstructive pulmonary disease, unspecified Category: Medical Plan: OKAY TO CONTINUE USING ANORO ELLIPTA 1 INHALATION DAILY ALBUTEROL HFA 2 PUFFS Q 6 HOURS P.R.N. (2) Nocturnal hypoxemia: Comment: This gentleman has evidence of nocturnal hypoxemia even with the use of CPAP. He was using O2 2 L/minute along with the CPAP. But now since his 's sickness who has had a permanent trach , he was not using O2 to avoid any noise . Overnight oximetry recording shows that he does have O2 sat below 88% for 1 hour 47 minutes, and thus he should use O2 along with the CPAP at night Code(s): G47.34 - Idiopathic sleep related nonobstructive alveolar hypoventilation Category: Medical Plan: Use O2 2 L/minute along with the CPAP at night. He has some technical difficulties and we will request the DME provider to help him. (3) Smoker: Comment: History of 50 pack years of smoking, he had quit 2 years ago but then went back to smoking due to his 's illness and stressful situation. At present he is smoking about 10 cigarettes a day. Code(s): F17.200 - Nicotine dependence, unspecified, uncomplicated Category: Social Hx Plan: I talked to him at length and advised him that he needs to quit smoking and or at least cut down the number of cigarettes to no more than 5 per day . (4) Obstructive sleep apnea: Comment: Patient is an established case of obstructive sleep apnea, being treated with CPAP. His compliance is excellent, he benefits from the use of CPAP plus O2 2 L/minute along with his CPAP. Code(s): G47.33 - Obstructive sleep apnea (adult) (pediatric) Category: Medical Plan: Continue to use CPAP every night, along with O2 2 L/minute . Coding Level of Care Code Est Pt Level 3 (18039) Diagnoses COPD (chronic obstructive pulmonary disease) J44.9 Nocturnal hypoxemia G47.34 Smoker F17.200 Obstructive sleep apnea G47.33
[2025-06-21 14:41] VITALS: BP 124/78; PULSE 71; O2SAT 94; BMI 28.4
--- OUTSIDE RECORDS SUMMARY | 2025-06-21 19:31 | XMS_ITS | Encounter Summary ---
Author Organization [facility] Address [address] [place] [phone] Phone Care Team Providers Care Warehouse Administrative Assistant Name Role Phone Jeanie Mohan MD Unavailable [phone] Ramos Mcgrath DO Unavailable Carmita Santiago [facility] Primary Care Provider Viki Melendrez STAFF CYTOTECHNOLOGIST Unavailable [phone] Farrah Camargo MD Primary Care Provider + Farrah Camargo MD Primary Care Provider + Farrah Camargo MD Primary Care Provider + Encounter Details Date Type Department Care Team (Late st Contact Info) Description 06/19/2022 Procedure Pass [facility] [address] [place] [address] Social History Tobacco Use Types Packs/Day Years Used Date Smoking Tobacco: Every Day Cigarettes 0.5 50 Smokeless Tobacco: Never Alcohol Use Standard Drinks/Week Comments Not Currently 20 (1 standard drink = 0.6 oz pu re alcohol) Sex and Gender Information Value Date Recorded Sex Assigned at Male 09/08/2017 9:38 AM EST Legal Sex Male 9:59 PM EDT Gender Identity Male 09/08/2017 9:38 AM EST Sexual Orientation Straight 09/08/2017 9: 38 AM EST documented as of this encounter Functional Status * Calculated C-SSRS Risk Score (Lifetime/Recent) Answer Date of Assessment Author No Risk Indicated 06/19/2022 8:18 PM EDT Brunilda Wolff om, RN * [place] Suicide Severity Rating Scale (Screener/Recent Self-Report) Question Answer Date of Assessment Author 1. Wish to be (Past 1 Month) No 06/19/2022 8:18 PM EDT Shivani Burns RN 2. Non-Specific Active Suicidal Thoughts (Past 1 Month) No 06/19/2022 8:18 PM EDT Shivani Burns RN 6. Suicidal Behavior (Lifetime) No 06/19/2022 8:18 PM EDT Shivani Burns RN documented as of this encounter Plan of Treatment Upcoming Encounters Date Type Department Care Team (Latest Contact Info) Description 06/30/2025 Procedure Pass [facility] Endoscopy Admitting Dept Virtual Department [address] [place] [phone] 06/30/2025 2:00 PM EDT Hospital Encounter [facility] Endoscopy Admitting Dept Virtual Department [address] [place] [phone] Jose Marshall MD [address] [place] [phone] [email or web address] 06/30/2025 2:00 PM EDT - 06/30/2025 2:30 PM EDT Surgery [facility] Endoscopy Admitting Dept Virtual Department [address] [place] [phone] Jose Marshall MD [address] [place] [phone] [email or web address] ESOPHAGOGASTRODUODENOSCOPY 07/08/2025 2:00 PM EST Office Visit [facility] at [address] [address] Ramos Mcgrath, [address] [place] [address] [email or web address] 07/11/2025 3:00 PM EST Office Visit [facility] [address] Floor, [address] [place] [address] Belkis Ratliff PA-C [address] [place] [address] [email or web address] 09/07/2025 2:15 PM EST Office Visit [facility] [address] [place] [address] Unknown, Unknown, Zabrina Mead, EVAN [address] [place] [address] Scheduled Procedures Name Priority Associated Diagnoses Date/Ti me ESOPHAGOGASTRODUODENOSCOPY Hx of colonic polyps 06/30/2025 2:00 PM EDT COLONOSCOPY Hx of colonic polyps 06/30/2025 2:00 PM EDT documented as of this encounter Visit Diagnoses Not on filedocumented in this encounter Additional Health Concerns Infection Onset Date Last Indicated Resolved Time CDiff-Risk 03/29/2025 03/29/2025 04/05/2025 1:21 AM EDT documented as of this encounter Care Teams Warehouse Administrative Assistant Relationship Specialty Start Date End Date Carmita Santiago CNP [address] [place] [phone] [email or web address] PCP - General Family Medicine 12/19/21 07/21/23 Farrah Camargo MD [address] [place] [phone] [email or web address] [email or web address] - General Family Medicine 07/22/23 12/29/23 Farrah Camargo MD [address] [place] [phone] [email or web address] [email or web address] - General Family Medicine 12/30/23 10/21/24 Farrah Camargo MD [address] [place] [phone] [email or web address] [email or web address] - General Family Medicine 10/22/24 Jeanie Mohan MD [address] [place] [address] Orthopedics & Sports Medicine, [facility] [place] [address] [email or web address] Historical LMR Provider 06/19/17 Ramos Mcgrath DO [address] [place] [phone] [email or web address] Primary Oncologist Hematology and Oncology 12/15/21 Viki Melendrez FNP [address] [place] [address] [email or web address] Nurse Practitioner Oncology 03/06/22 documented as of this encounter Additional Source Comments The information contained in this document represents components of the legal health record. It is not the complete legal health record.[facility]
--- OUTSIDE RECORDS SUMMARY | 2025-06-21 19:31 | XMS_ITS | Encounter Summary ---
Author Organization [facility] Address [address] [place] [address] Phone Care Team Providers Care Trace Clerk Name Role Phone Jesse Larson MD Unavailable [phone] Reji Nam MD Unavailable Jeanie Mohan MD Unavailable Jesse Larson MD Primary Care Provider [phone] Anthony Real MD Primary Care Provider [phone] Ramos Mcgrath DO Unavailable Carmita Santiago BRIM BLOCKER Primary Care Provider Sophia Alan BRIM BLOCKER Unavailable Viki Melendrez OIL DISPENSER Unavailable [phone] Farrah Camargo MD Primary Care Provider + Farrah Camargo MD Primary Care Provider + Farrah Camargo MD Primary Care Provider + Reason for Referral * Occupational Therapy (Routine) - Closed Specialty Diagnoses / Procedures Referred By Mandy t Referred To Contact Occupational Therapy Diagnoses Encounter for rehabilitation Jesse Larson MD Phone: tel: fax: [email or web address] [address] [place] [address] Phone: tel: Referral ID Status Reason Start Date Expiration Date Visits Re quested Visits Authorized [id number] Closed 12/31/2017 08/31/2018 25 25 Encounter Details Date Type Department Care Team (Latest Contact Info) Description 12/25/2017 Transcribe Orders [facility] [address] [place] [address] Jesse Larson MD [address] [place] [address] [email or web address] Encounter for rehabilitation (Primary Dx) Social History Tobacco Use Types Packs/Day Years Used Date Smoking Tobacco: Every Day Cigarettes Smokeless Tobacco: Never Alcohol Use Standard Drinks/Week Comments Yes 11 (1 standard drink = 0.6 oz pu re alcohol) Sex and Gender Information Value Date Recorded Sex Assigned at Male 09/08/2017 9:38 AM EST Legal Sex Male 9:59 PM EDT Gender Identity Male 09/08/2017 9:38 AM EST Sexual Orientation Straight 09/08/2017 9: 38 AM EST documented as of this encounter Plan of Treatment Upcoming Encounters Date Type Department Care Team (Latest Contact Info) Description 06/30/2025 Procedure Pass [facility] Endoscopy Admitting Dept Virtual Department [address] [place] [address] 06/30/2025 2:00 PM EDT Hospital Encounter [facility] Endoscopy Admitting Dept Virtual Department [address] [place] [address] Jose Marshall MD [address] [place] [address] [email or web address] 06/30/2025 2:00 PM EDT - 06/30/2025 2:30 PM EDT Surgery [facility] Endoscopy Admitting Dept Virtual Department [address] [place] [address] Jose Marshall MD [address] [place] [address] [email or web address] ESOPHAGOGASTRODUODENOSCOPY 07/08/2025 2:00 PM EST Office Visit [facility] [place] [address] [place] [address] Ramos Mcgrath, [address] [place] [address] [email or web address] 07/11/2025 3:00 PM EST Office Visit [facility] [address] [facility] 3rd Floor, [address] [place] [address] Belkis Ratliff PA-C [address] [place] [address] [email or web address] 09/07/2025 2:15 PM EST Office Visit [facility] [address] [place] [address] Unknown, Unknown, Zabrina Mead NP [address] [place] [address] Scheduled Procedures Name Priority Associated Diagnoses Date/Ti me ESOPHAGOGASTRODUODENOSCOPY Hx of colonic polyps 06/30/2025 2:00 PM EDT COLONOSCOPY Hx of colonic polyps 06/30/2025 2:00 PM EDT Scheduled Referrals Name Type Priority Associated Diagnoses Orde r Schedule Ambulatory referral to [facility] Occupational Therapy Outpatient Referral Routine Encounter for rehabilitation Ordered: 12/25/2017 documented as of this encounter Visit Diagnoses Diagnosis Encounter for rehabilitation- Primary Hx of colonic polyps Personal history of colonic polyps documented in this encounter Additional Health Concerns Infection Onset Date Last Indicated Resolved Time CDiff-Risk 03/29/2025 03/29/2025 04/05/2025 1:21 AM EDT documented as of this encounter Care Teams Trace Clerk Relationship Specialty Start Date End Date Jesse Larson MD [address] [place] [address] [email or web address] PCP - General 07/01/17 10/04/19 Anthony Real MD [address] [place] [address] [phone] [email or web address] PCP - General Family Medicine 10/05/19 12/18/21 Carmita Santiago CNP [address] [place] [address] [email or web address] PCP - General Family Medicine 12/19/21 07/21/23 Farrah Camargo MD [address] [place] [address] [email or web address] PCP - General Family Medicine 07/22/23 12/29/23 Farrah Camagro MD [address] [place] [address] [email or web address] PCP - General Family Medicine 12/30/23 10/21/24 Farrah Camargo MD [address] [place] [address] [email or web address] PCP - General Family Medicine 10/22/24 Jesse Larson MD [address] [place] [address] [email or web address] Historical LMR Provider 06/19/17 2 Reji Nam MD [address] [place] [address] Historical LMR Provider 06/19/17 Jeanie Mohan MD [address] [place] [address] Orthopedics & Sports Medicine, [place] [address] Historical LMR Provider 06/19/17 Ramos Mcgrath DO [address] [place] [address] [email or web address] Primary Oncologist Hematology and Oncology 12/15/21 Sophia Alan CNP [address] [place] [address] Nurse Practitioner Oncology 02/12/22 06/18/22 Viki Melendrez FNP [address] [place] [address] Nurse Practitioner Oncology 03/06/22 documented as of this encounter Additional Source Comments The information contained in this document represents components of the legal health record. It is not the complete legal health record.[facility]
--- OUTSIDE RECORDS SUMMARY | 2025-06-21 19:31 | XMS_ITS | Encounter Summary ---
Author Organization [facility] Address [address] [place] [address] Phone Care Team Providers Care Digital Sales Director Name Role Phone Jeanie Mohan MD Unavailable [phone] Ramos Mcgrath DO Unavailable [phone] Carmita Santiago SENIOR JAVA WEB APPLICATION DEVELOPER Primary Care Provider Viki Melendrez KITCHEN BATH DESIGNER Unavailable Farrah Camargo MD Primary Care Provider + Farrah Camargo MD Primary Care Provider + Farrah Camargo MD Primary Care Provider + Encounter Details Date Type Department Care Team (Late st Contact Info) Description 06/19/2022 Procedure Pass [facility], Ct Scan - [address] [address] Social History Tobacco Use Types Packs/Day Years [...] 9:38 AM EST Sexual Orientation Straight 09/08/2017 9 :38 AM EST documented as of this encounter Functional Status * Calculated C-SSRS Risk Score (Lifetime/Recent) Answer Date of Assessment Author No Risk Indicated 06/19/2022 8:18 PM EDT Brunilda Wolff om, RN * [place] Suicide Severity Rating Scale (Screener/Recent Self-Report) Question [...] (Latest Contact Info) Description 06/30/2025 Procedure Pass [facility] Endoscopy Admitting Dept Virtual Department [address] [place] [address] 06/30/2025 2:00 PM EDT Hospital Encounter [facility] Endoscopy Admitting Dept Virtual Department [address] [place] [address] Jose Marshall MD [address] [place] [address] [email or web address] 06/30/2025 2:00 PM EDT - 06/30/2025 2:30 PM EDT Surgery [facility] Endoscopy Admitting Dept Virtual Department [address] [place] [address] Jose Marshall MD [address] [place] [address] [email or web address] ESOPHAGOGASTRODUODENOSCOPY 07/08/2025 2:00 PM EST Office Visit [facility] at [address] [address] Ramos Mcgrath, 30 [place] [address] [email or web address] 07/11/2025 3:00 PM EST Office Visit [facility] [address] 3rd Floor, [address] [place] [address] Belkis Ratliff PA-C [address] [place] [address] [email or web address] 09/07/2025 2:15 PM EST Office Visit [facility] Gastro[facility]ology Clinic 10 [place] [address] Unknown, Unknown, Zabrina Mead NP 10 [place] [address] Scheduled Procedures Name Priority Associated Diagnoses Date/Ti me ESOPHAGOGASTRODUODENOSCOPY Hx of colonic polyps 06/30/2025 2:00 PM EDT COLONOSCOPY Hx of colonic polyps 06/30/2025 2:00 PM EDT documented as of this encounter Visit Diagnoses Not on filedocumented in this encounter Additional Health Concerns Infection Onset Date Last Indicated Resolved Time CDiff-Risk 03/29/2025 03/29/2025 04/05/2025 1:21 AM EDT documented as of this encounter Care Teams Digital Sales Director Relationship Specialty Start Date End Date Carmita Santiago CNP [address] [place] [address] [email or web address] PCP - General Family Medicine 12/19/21 07/21/23 Farrah Camargo MD [address] [place] [address] [email or web address] PCP - General Family Medicine 07/22/23 12/29/23 Farrah Camargo MD [address] [place] [address] [email or web address] PCP - General Family Medicine 12/30/23 10/21/24 Farrah Camargo MD [address] [place] [address] [email or web address] PCP - General Family Medicine 10/22/24 Jeanie Mohan MD [address] [place] [address] Orthopedics & Sports Medicine, [facility] [place] [address] [email or web address] Historical LMR Provider 06/19/17 Ramos Mcgrath DO [address] [place] [address] [email or web address] Primary Oncologist Hematology and Oncology 12/15/21 Viki Melendrez FNP [address] [place] [address] [email or web address] Nurse Practitioner Oncology 03/06/22 documented as of this encounter Additional Source Comments The information contained in this document represents components of the legal health record. It is not the complete legal health record.[facility]
--- OUTSIDE RECORDS SUMMARY | 2025-06-21 19:31 | XMS_ITS | Encounter Summary ---
Author Organization [facility] Address [address] [place] [address] Phone Care Team Providers Care Unit Director Name Role Phone Jeanie Mohan MD Unavailable [phone] Ramos Mcgrath DO Unavailable Carmita Santiago FISH ROE PROCESSOR Primary Care Provider Viki Melendrez COMMUNITY HEALTH EDUCATION COORDINATOR Unavailable [phone] Farrah Camargo MD Primary Care Provider + Farrah Camargo MD Primary Care Provider + Farrah Camargo MD Primary Care Provider + Encounter Details Date Type Department Care Team (Late st Contact Info) Description 06/19/2022 Procedure Pass [facility], [address] [address] Social History Tobacco Use Types Packs/Day Years [...] PM EDT Brunilda Wolff om, RN * [place] Suicide Severity Rating Scale (Screener/Recent Self-Report) Question [...] (Latest Contact Info) Description 06/30/2025 Procedure Pass [facility] Endoscopy Admitting Dept Virtual Department [address] [place] [address] 06/30/2025 2:00 PM EDT Hospital Encounter [facility] Endoscopy Admitting Dept Virtual Department [address] [place] [address] Jose Marshall MD [address] [place] [address] [email or web address] 06/30/2025 2:00 PM EDT - 06/30/2025 2:30 PM EDT Surgery [facility] Endoscopy Admitting Dept Virtual Department [address] [place] [address] Jose Marshall MD [address] [place] [address] [email or web address] ESOPHAGOGASTRODUODENOSCOPY 07/08/2025 2:00 PM EST Office Visit [facility] Center at [address] [address] Ramos Mcgrath, DO [address] [place] [address] [email or web address] 07/11/2025 3:00 PM EST Office Visit [facility] [address] 3rd Floor, [address] [place] [address] Belkis Ratliff PA-C [address] [place] [address] [email or web address] 09/07/2025 2:15 PM EST Office Visit [facility] Gastroenterology Clinic [address] [place] [address] Unknown, Unknown, Zabrina Mead, EVAN 10 [place] [address] Scheduled Procedures Name Priority Associated Diagnoses Date/Ti me ESOPHAGOGASTRODUODENOSCOPY Hx of colonic polyps 06/30/2025 2:00 PM EDT COLONOSCOPY Hx of colonic polyps 06/30/2025 2:00 PM EDT documented as of this encounter Visit Diagnoses Not on filedocumented in this encounter Additional Health Concerns Infection Onset Date Last Indicated Resolved Time CDiff-Risk 03/29/2025 03/29/2025 04/05/2025 1:21 AM EDT documented as of this encounter Care Teams Unit Director Relationship Specialty Start Date End Date Carmita Santiago CNP [address] [place] [address] PCP - General Family Medicine 12/19/21 07/21/23 Farrah Camargo MD [address] [place] [address] [email or web address] PCP - General Family Medicine 07/22/23 12/29/23 Farrah Camargo MD [address] [place] [address] [email or web address] PCP - General Family Medicine 12/30/23 10/21/24 Farrah Camargo MD [address] [place] [address] [email or web address] PCP - General Family Medicine 10/22/24 Jeanie Mohan MD [address] [place] [address] Orthopedics & Sports Medicine, [facility] [place] [address] [email or web address] Historical LMR Provider 06/19/17 Ramos Mgcrath DO [address] [place] [address] [email or web address] Primary Oncologist Hematology and Oncology 12/15/21 Viki Melendrez FNP [address] [place] [address] [email or web address] Nurse Practitioner Oncology 03/06/22 documented as of this encounter Additional Source Comments The information contained in this document represents components of the legal health record. It is not the complete legal health record.[facility]
--- OUTSIDE RECORDS SUMMARY | 2025-06-21 19:31 | XMS_ITS | Clinical Summary ---
Author Organization [facility] Address [address] [place] [address] Care Team Providers Care Detonator Maker Name Role Phone Unavailable Primary Care Provider Unavailabl e Social History Tobacco Use Types Packs/Day Years Used Date Smoking Tobacco: Never Assessed Sex and Gender Information Value Date Recorded Sex Assigned at Not on file Gender Identity Not on file Sexual Orientation Not on file Plan of Treatment Not on file
--- OUTSIDE RECORDS SUMMARY | 2025-06-21 19:31 | XMS_ITS | Encounter Summary ---
Author Organization [facility] Address [address] [place] [address] Phone Care Team Providers Care Promotions Assistant Sales Marketing Name Role Phone Jeanie Mohan MD Unavailable [phone] Ramos Mcgrath DO Unavailable [phone] Carmita Santiago TRANSACTION PROCESSOR Primary Care Provider Viki Melendrez MACHINE TRACER Unavailable Farrah Camargo MD Primary Care Provider + Farrah Camargo MD Primary Care Provider + Farrah Camargo MD Primary Care Provider + Encounter Details Date Type Department Care Team (Late st Contact Info) Description 07/18/2022 Procedure Pass [facility], Ct Scan - [address] [address] Social History Tobacco Use Types Packs/Day Years [...] (Latest Contact Info) Description 06/30/2025 Procedure Pass [facility] Endoscopy Admitting Dept Virtual Department [address] [place] [address] 06/30/2025 2:00 PM EDT Hospital Encounter [facility] Endoscopy Admitting Dept Virtual Department [address] [place] [address] Jose Marshall MD [address] [address] [email or web address] 06/30/2025 2:00 PM EDT - 06/30/2025 2:30 PM EDT Surgery [facility] Endoscopy Admitting Dept Virtual Department [address] [place] [address] Jose Marshall MD [address] [place] [address] [email or web address] ESOPHAGOGASTRODUODENOSCOPY 07/08/2025 2:00 PM EST Office Visit [facility] 30 [place] [address] Ramos Mcgrath DO 30 [place] [address] [email or web address] .[email or web address] 07/11/2025 3:00 PM EST Office Visit [facility] [address] [place] [address] 3rd Floor, [address] [place] [address] Belkis Ratliff PA-C [address] [place] [address] [email or web address] 09/07/2025 2:15 PM EST Office Visit [facility] 10 [place] [address] Unknown, Unknown, MD Mckeon, Zabrina Alford, EVAN 10 [place] [address] Scheduled Procedures Name Priority Associated Diagnoses Date/Ti me ESOPHAGOGASTRODUODENOSCOPY Hx of colonic polyps 06/30/2025 2:00 PM EDT COLONOSCOPY Hx of colonic polyps 06/30/2025 2:00 PM EDT documented as of this encounter Visit Diagnoses Not on filedocumented in this encounter Additional Health Concerns Infection Onset Date Last Indicated Resolved Time CDiff-Risk 03/29/2025 03/29/2025 04/05/2025 1:21 AM EDT documented as of this encounter Care Teams Promotions Assistant Sales Marketing Relationship Specialty Start Date End Date Carmita Santiago CNP 10 [place] [address] [email or web address] PCP - General Family Medicine 12/19/21 07/21/23 Farrah Camargo MD [address] [place] [address] [email or web address] PCP - General Family Medicine 07/22/23 12/29/23 Farrah Camargo MD 30 [place] [address] [email or web address] PCP - General Family Medicine 12/30/23 10/21/24 Farrah Camargo MD [address] [place] [address] [email or web address] PCP - General Family Medicine 10/22/24 Jeanie Mohan MD [address] [place] [address] Orthopedics & Sports Medicine, [facility] [place] [address] [email or web address] Historical LMR Provider 06/19/17 Ramos Mcgrath DO 30 [place] [address] [email or web address] Primary Oncologist Hematology and Oncology 12/15/21 Viki Melendrez FNP [address] [place] [address] [email or web address] Nurse Practitioner Oncology 03/06/22 documented as of this encounter Additional Source Comments The information contained in this document represents components of the legal health record. It is not the complete legal health record.[facility]
--- OUTSIDE RECORDS SUMMARY | 2025-06-21 19:31 | XMS_ITS | Encounter Summary ---
Author Organization [facility] Address [address] [place] [address] Phone Care Team Providers Care Pit Manager Name Role Phone Jesse Larson MD Unavailable [phone] Reji Nam MD Unavailable Jeanie Mohan MD Unavailable Jesse Larson MD Primary Care Provider Anthony Real MD Primary Care Provider Ramos Mcgrath DO Unavailable [phone] Carmita Santiago COMMERCIAL DEVELOPMENT MANAGER Primary Care Provider Sophia Alan COMMERCIAL DEVELOPMENT MANAGER Unavailable Viki Melendrez PERSONAL FINANCIAL ADVISOR Unavailable Farrah Camargo MD Primary Care Provider + Farrah Camargo MD Primary Care Provider + Farrah Camargo MD Primary Care Provider + Encounter Details Date Type Department Care Team (Late st Contact Info) Description 11/11/2018 Procedure Pass [facility], [address] [address] Social History Tobacco Use Types Packs/Day Years [...] Pass [facility] Endoscopy Admitting Dept Virtual Department [address] [place] [address] 06/30/2025 2:00 PM EDT Hospital Encounter [facility] Endoscopy Admitting Dept Virtual Department [address] [place] [address] Jose Marshall MD [address] [place] [address] [email or web address] 06/30/2025 2:00 PM EDT - 06/30/2025 2:30 PM EDT Surgery [facility] Endoscopy Admitting Dept Virtual Department [address] [place] [address] Jose Marshall MD [address] [place] [address] [email or web address] ESOPHAGOGASTRODUODENOSCOPY 07/08/2025 2:00 PM EST Office Visit [facility] at [address] [address] Ramos Mcgrath DO [address] [place] [address] [email or web address] 07/11/2025 3:00 PM EST Office Visit [facility] [address] [place] [address] 3rd Floor, [address] [place] [address] Belkis Ratliff PA-C [address] [place] [address] [email or web address] 09/07/2025 2:15 PM EST Office Visit [facility]ology Clinic 10 [place] [address] Unknown, Unknown, Zabrina Mead, EVAN 10 [place] [address] Scheduled Procedures Name Priority Associated Diagnoses Date/Ti me ESOPHAGOGASTRODUODENOSCOPY Hx of colonic polyps 06/30/2025 2:00 PM EDT COLONOSCOPY Hx of colonic polyps 06/30/2025 2:00 PM EDT documented as of this encounter Visit Diagnoses Not on filedocumented in this encounter Additional Health Concerns Infection Onset Date Last Indicated Resolved Time CDiff-Risk 03/29/2025 03/29/2025 04/05/2025 1:21 AM EDT documented as of this encounter Care Teams Pit Manager Relationship Specialty Start Date End Date Jesse Larson MD [address] [place] [address] [email or web address] PCP - General 07/01/17 10/04/19 Anthony Real MD [address] [place] [phone] [email or web address] PCP - General Family Medicine 10/05/19 12/18/21 Carmita Santiago CNP [address] [place] [address] PCP - General Family Medicine 12/19/21 07/21/23 Farrah Camargo MD [address] [place] [address] [email or web address] PCP - General Family Medicine 07/22/23 12/29/23 Farrah Camargo MD [address] [place] [address] [email or web address] PCP - General Family Medicine 12/30/23 10/21/24 Farrah Camargo MD [address] [place] [address] [email or web address] PCP - General Family Medicine 10/22/24 Jesse Larson MD [address] [place] [address] [email or web address] Historical LMR Provider 06/19/17 Reji Granados MD [address] [place] [address] Historical LMR Provider 06/19/17 Jeanie Mohan MD [address] [place] [address] Orthopedics & Sports Medicine, [place] [address] [email or web address] Historical LMR Provider 06/19/17 Ramos Mcgrath DO [address] [place] [address] [email or web address] .[email or web address] Primary Oncologist Hematology and Oncology 12/15/21 Sophia Alan CNP [address] [place] [address] [email or web address] Nurse Practitioner Oncology 02/12/22 06/18/22 Viki Melendrez, PERSONAL FINANCIAL ADVISOR [address] [place] [address] [email or web address] Nurse Practitioner Oncology 03/06/22 documented as of this encounter Additional Source Comments The information contained in this document represents components of the legal health record. It is not the complete legal health record.[facility]
--- OUTSIDE RECORDS SUMMARY | 2025-06-21 19:31 | XMS_ITS | Encounter Summary ---
Author Organization [facility] Address [address] [place] [id number] Phone Care Team Providers Care Blacksmith Helper Name Role Phone Jeanie Mohan MD Unavailable [phone] Ramos Mcgrath DO Unavailable Carmita Santiago DECISION SUPPORT ANALYST Primary Care Provider Viki Melendrez DATA WAREHOUSE ADMINISTRATOR Unavailable Farrah Camargo MD Primary Care Provider + Farrah Camargo MD Primary Care Provider + Farrah Camargo MD Primary Care Provider + Encounter Details Date Type Department Care Team (Late st Contact Info) Description 06/19/2022 Procedure Pass [facility], Ct Scan - [address] [address] Social History Tobacco Use Types Packs/Day Years [...] PM EDT Brunilda Wolff om, RN * Rufus Suicide Severity Rating Scale (Screener/Recent Self-Report) Question [...] (Latest Contact Info) Description 06/30/2025 Procedure Pass [facility] Endoscopy Admitting Dept Virtual Department [address] [place] [id number] 06/30/2025 2:00 PM EDT Hospital Encounter [facility] Endoscopy Admitting Dept Virtual Department [address] [place] [phone] Jose Marshall MD [address] [place] [id number] [email or web address] 06/30/2025 2:00 PM EDT - 06/30/2025 2:30 PM EDT Surgery [facility] Endoscopy Admitting Dept Virtual Department [address] [place] [phone] Jose Marshall MD [address] [place] [phone] [email or web address] ESOPHAGOGASTRODUODENOSCOPY 07/08/2025 2:00 PM EST Office Visit [facility] Center at [address] [address] Ramos Mcgrath, [address] [place] [address] [email or web address] 07/11/2025 3:00 PM EST Office Visit [facility] [address] Floor, [address] [place] [address] Belkis Ratliff PA-C [address] [place] [address] [email or web address] 09/07/2025 2:15 PM EST Office Visit [facility] [address] [place] [address] Unknown, Unknown, Zabrina Mead NP [address] [place] [address] Scheduled Procedures Name Priority Associated Diagnoses Date/Ti me ESOPHAGOGASTRODUODENOSCOPY Hx of colonic polyps 06/30/2025 2:00 PM EDT COLONOSCOPY Hx of colonic polyps 06/30/2025 2:00 PM EDT documented as of this encounter Visit Diagnoses Not on filedocumented in this encounter Additional Health Concerns Infection Onset Date Last Indicated Resolved Time CDiff-Risk 03/29/2025 03/29/2025 04/05/2025 1:21 AM EDT documented as of this encounter Care Teams Blacksmith Helper Relationship Specialty Start Date End Date Carmita Santiago CNP [address] [place] [phone] [email or web address] PCP - General Family Medicine 12/19/21 07/21/23 Farrah Camargo MD [address] [place] [address] [email or web address] PCP - General Family Medicine 07/22/23 12/29/23 Farrah Camargo MD [address] [place] [address] [email or web address] PCP - General Family Medicine 12/30/23 10/21/24 Farrah Camargo MD [address] [place] [phone] [email or web address] PCP - General Family Medicine 10/22/24 Jeanie Mohan MD [address] [place] [address] Orthopedics & Sports Medicine, [place] [address] [email or web address] Historical LMR Provider 06/19/17 Ramos Mcgrath DO [address] [place] [address] [email or web address] Primary Oncologist Hematology and Oncology 12/15/21 Viki Melendrez FNP [address] [place] [address] [email or web address] Nurse Practitioner Oncology 03/06/22 documented as of this encounter Additional Source Comments The information contained in this document represents components of the legal health record. It is not the complete legal health record.[facility]
--- OUTSIDE RECORDS SUMMARY | 2025-06-21 19:31 | XMS_ITS | Clinical Summary ---
Author Organization [facility] Address [address] [place] [address] Phone Care Team Providers Care Automation Application Engineer Name Role Phone Jeanie Mohan MD Unavailable Ramos Mcgrath DO Unavailable [phone] Viki Melendrez COMMERCIAL SERVICE TECHNICIAN Unavailable [phone] Farrah Camargo MD Primary Care Provider + Allergies Active Allergy Reactions Criticality Noted Date Comments Penicillins Hives High 05/14/2023 Pseudoephedrine Hcl Hives,Itching Low 11/16/2018 Trazodone-Dietary Supp No.8 Hives,Itching Low 12/19 Medications thiamine (VITAMIN B-1) 100 MG tablet Take 100 mg by mouth daily. Active labetalol (TRANDATE) 200 MG tablet Take 400 mg by mouth 2 (two) times a day. Active famotidine (PEPCID) 40 MG tablet Take 40 mg by mouth daily. 2 Active rosuvastatin (CRESTOR) 40 MG tablet Take 40 mg by mouth daily. Active umeclidinium-lonny anteroL (ANORO ELLIPTA) 62.5-25 mcg/actuation diskus inhaler 2 Active cetirizine (ZYRTEC) 10 MG tablet Take 10 mg by mouth daily. Active betamethasone dipropionate 0.05 % ointment Apply 1 Application topically daily. 4 Active gabapentin (NEURONTIN) 300 MG capsule Take 1 capsule (300 mg total) by mouth nightly at bedtime. 30 capsule 4 Active cyanocobalamin, vitamin B-12, 1000 MCG tablet Take 1,000 mcg by mouth. Active clobetasol (TEMOVATE) 0.05 % external solution Apply topically 2 (two) times a day. 4 Active losartan (COZAAR) 25 MG tablet Take 1 tablet (25 mg total) by mouth daily. 90 tablet 3 5 Active ELIQUIS 5 mg tablet TAKE 1 TABLET(5 MG) BY MOUTH TWICE DAILY 180 tablet 3 5 Active Active Problems Patient Care Coordination No te Formatting of this note migh t be different from the original. Height 167cm no shoes 09/09/2022 Problem Noted Date Diagnosed Date PNA (pneumonia) 01/04/2024 Assessment & Plan (01/08/2024 11:15 PM EDT): In setting of multi-rib fxs Doing much better still requiring o2 but he does have copd, no wheezing at this point either Treated with renally dosed levaquin. CXR and exam are benign. I suspect his hypoxia is a combination of atelectasis from poor inspiration due to his rib fractures on top of underlying COPD. Time she was at room air today but as you are nearing discharge she desatted to 84 on room air and 81% with ambulation during home oxygen evaluation. Unfortunately was too late to arrange for home oxygen this evening so we will discharge him early in the morning with home O2 PNA (pneumonia) 01/01/2024 Overview (01/01/2024): Starting on renally dosed levaquin given pcn allergy. Fracture of three ribs, right, closed, initial e ncounter 12/31/2023 Closed traumatic minimally d isplaced fracture of four ribs of right side with routine healing 12/30/2023 Assessment & Plan (01/05/2024 2:57 PM EDT): S/p mech fall abt 1 wk ago , rib 8-11 fx. Admitted for pain mgmt, complicated by pna, imaging findings and + procal. Reviewed with pulm. Abx as described. Doing much better now, renal issues prevail - expected halfway healing over weeks to months, discussed splinting w/ coughing, discussed risks with multiple fx such as ptx, pna, respiratory compromise etc, discussed IS use. -cont pulse ox- may need o2 at home temp. -Continue scheduled Tylenol 975 x 3 times a day, avoiding nsaids with carolyne/ckd- he has not used narcotics in a few days. -Continue Lidoderm patch over the area -inc gabapentin at night to 300 has been successful, will not increase dose further with changing GFR -Continue incentive spirometry q hourly -PT consult Abnormal CT scan 12/30/2023 Assessment & Plan (12/31/2023 11:22 AM EDT): Chronic finding of abdominal aortic aneurysm measuring now 3.9 x 3.7 cm. Asymptomatic. -Follow-up with PCP S/P reverse total shoulder a rthroplasty, unspecified laterality 06/26/2023 Atrial fibrillation 05/14/2023 Assessment & Plan (12/30/2023 9:49 PM EDT): Paroxysmal A-fib. Currently rate and rhythm control. Continue Eliquis Assessment & Plan (11/10/2023 3:01 PM EDT): He was diagnosed with atrial fibrillation in April 2023 via Biotronik ILR. He was instructed to stop his aspirin 81 mg daily and was started on Eliquis 5 mg twice daily for stroke preventative. He denies any symptoms for atrial fibrillation. Assessment & Plan (05/14/2023 2:02 PM EDT): Newly diagnosed atrial fibrillation on 04/27/23. Follows with cardiology/[facility]. He had a [employer] implantable loop recorder place on 09/27/22 for continued monitoring for arrhythmias. This reported 3 episodes of Atrial fibrillation on 04/27/23 while the patient was asleep. He has a CHADSVASc score of 4 and per /cardiology, he was instructed to stop aspirin 81 mg PO daily onl 9/5/23 and begin anticoagulation with Eliquis 5 mg PO BID for new onset atrial fibrillation. Patient was seen on 03/12/23 for preoperative cardiac evaluation before left TSA. EKG in the office showed sinus rhythm with a LAFB, left axis deviation, and non- specific ST/T wave abnormalities, rate 61 bpm. Compared to prior ECG, no changes. ILR was interrogated in the office with no concerns, device functioning appropriately , battery 100%. Patient was doing well from cardiovascular standpoint. He denies any chest pain/pressure, no dyspnea on exertion or shortness of breath, no heart palpitations, no dizziness or lightheadedness, no syncope or fainting (since 2017). He does have some chronic mild LE edema/varicose veins, primarily in R LE for which he wears compression stockings. The patient was still mowing his 3 acre lawn with a push mower without any exertional symptoms. Echo from 06/20/2022 sowed normal LV size and function with EF 60%. Normal RV size and function. Normal diastolic function for age. No significant valvular heart disease. Bubble study positive for right to left shunting consistent with PFO. Cardiology recommendations: Revised Cardiac Risk Index assessed as a 3.9% 30-day post surgical risk of , PR or cardiac arrest. EKG showed no evidence of ischemia. Patient able to perform 4.0 Mets of activity without concerning cardiorespiratory symptoms. No contraindication to proceeding with surgery and no need for further testing from cardiovascular standpoint prior to surgery. Per , it is acceptable to hold Eliquis x 3 days before surgery due to increased risk of bleeding. Recommend patient resume baby aspirin 81 mg PO perioperatively during Eliquis hold. Eczema 05/14/2023 Assessment & Plan (05/14/2023 2:06 PM EDT): Continue on topical betamethasone dipropionate ointment, fluocinolone scalp oil, and desonide ointment as needed perioperatively. Heartburn 05/14/2023 Assessment & Plan (05/14/2023 2:06 PM EDT): Continue on famotidine 40 mg PO daily as needed perioperatively. BRENDA on CPAP 05/14/2023 Assessment & Plan (05/14/2023 2:36 PM EDT): Followed at [facility], last seen on 03/07/23 by ADRY Calhoun for preoperative evaluation of COPD/current smoker and BRENDA. CT chest from 11/11/22 showed several nodules and upper lung bronchiolitis. He is being treated with APAP with evidence of nocturnal hypoxemia even with use of APAP. Managed on APAP (aoutomatic positive airway pressure) 5-20 cm H2O nightly > 4 hours with nocturnal supplemental O2 at 2 liters per min via in-line APAP. Patient medically managed on Anoro Ellipta 62.5-25 mcg/actuation diskus inhaler for COPD, and mirtazapine (Remeron) 7.5 mg PO nightly for sleep disorder. Pulmonary note reports from an BRENDA perspective, patient is medically cleared to proceed with TSA. Patient reports compliance with APAP device. He was instructed to bring this with him for use in the hospital on the day of surgery. He was instructed to continue on mirtazapine and the Anoro Ellipta inhaler perioperatively. AAA (abdominal aortic aneurysm) 05/14/2023 Assessment & Plan (11/10/2023 3:02 PM EDT): He follows with Dr. Berry at [facility] for monitoring of his AAA. Assessment & Plan (05/14/2023 2:20 PM EDT): Follows with vascular/ at [facility]/[place] for AAA. Last seen on 11/15/22 at which point the AAA remains on the small side, measuring 3.5 x 3.6 cm. Risk for rupture currently is negligible. Recommended smoking cessation and plan for follow-up in 1 year with repeat ultrasound. Patient is cleared from a vascular standpoint to proceed with TSA. Preop examination 05/14/2023 Assessment & Plan (05/14/2023 2:56 PM EDT): 72 year old patient of Carmita Santiago NP with planned left total shoulder replacement on 06/26/23. Procedure risk is intermediate. Patient denies symptoms associated with acute coronary syndromes including unstable or severe angina, PR within 1 month, severe CHF, high grade arrhythmia or symptomatic valvular disease. Medical risk assessment at the surgical optimization clinic are as follows. TAMAYO cardiovascular risk score is 1.2% risk of myocardial infarction or cardiac arrest, intraoperatively or up to 30 day post-operatively. DASI score was 31.45 points, able to achieve at least 6.61 METS. If DASI >18, no further cardiac testing recommended. NSQIP cardiovascular risk score was above average at 0.4% risk of cardiac complication, and average at 0.5% risk of VTE. RCRI score was 0.9% risk for cardiovascular event including myocardial infarction, pulmonary edema, arrhythmia, cardiac arrest or complete heart block. This reflects low risk on the scale. Blood work from 05/07/23 shows CBC is unremarkable. BMP shows a creatinine of 1.80 with eGFR 40. Patient's overall risk for major adverse cardiac events is higher than optimal. He has already undergone extensive preoperative evaluation by specialists in vascular, cardiology, and pulmonology, obtaining all necessary clearances and can proceed to the intended procedure without further work-up. He will have to successfully quit smoking/vaping. Recommend Eliquis 2.5 mg PO BID for DVT prophylaxis with plan to resume patient's home dose as soon as clinically appropriate. Patient reports PCN allergy/hives; recommend alternative antibiotic prophylaxis. The patient was instructed to discontinue use of any NSAIDs, fish oil, turmeric, herbal supplements and multivitamins for 1 week before surgery.The patient has the following relative contraindications to same day discharge following joint replacement surgery: current anticoagulation, CVA/TIA, CKD with eGFR 40, COPD requiring inhalers, BRENDA requiring sleep device. Other hyperlipidemia 10/11/2022 Assessment & Plan (11/10/2023 3:02 PM EDT): Continue rosuvastatin 40 mg daily. Assessment & Plan (05/14/2023 1:24 PM EDT): Continue on medical management with rosuvastatin 40 mg PO daily perioperatively. Assessment & Plan (10/11/2022 3:48 PM EST): Continue on rosuvastatin 40 mg daily. Smoking 10/11/2022 Assessment & Plan (05/14/2023 1:23 PM EDT): Long smoking history, down to 3 cigarettes a day and using nicotine lozenges. He vapes nicotine product ~ 3 x month on average. Understands requirement for smoking cessation for 30 days before and after surgery due to increased risk of pulmonary complications and increased risk of delayed/poor wound healing/surgical site infection. Will need to monitor his progress with smoking cessation. Assessment & Plan (10/11/2022 3:49 PM EST): Patient reports he is down to 2 to 3 cigarettes a day. We discussed decreasing this further and it is something he is actively working on. Hypertension 06/19/2022 Assessment & Plan (11/10/2023 3:00 PM EDT): He reports his blood pressures are well-controlled at home on current medications of hydrochlorothiazide 12.5 mg daily, labetalol 400 mg twice daily he will continue his medication without change. Assessment & Plan (05/14/2023 2:08 PM EDT): Follows with cardiology, BP controlled 136/71 on medical management with hydrochlorothiazide 12.5 mg PO daily and labetalol 400 mg PO BID. Patient was instructed to continue on labetalol perioperatively, including on the morning of surgery with small sip of water, but to hold HCTZ on the morning of surgery. Assessment & Plan (03/12/2023 1:37 PM EDT): He's actually a bit hypotensive in office today at 90/62, may be a bit dehydrated. Otherwise, he is usually well controlled. He will continue current medications as above. Assessment & Plan (10/11/2022 3:47 PM EST): Patient's blood pressure today is 152/90. He had his blood pressure done yesterday or in the recent past at a different appointment and his blood pressure was in the 120s. I have counseled him to continue to keep an eye on this. For now we will continue him on labetalol 400 mg twice daily and hydrochlorothiazide 12.5 mg daily. Assessment & Plan (06/20/2022 5:18 PM EDT): BP ranging 130s-140s/80s. Patient takes hydrochlorothiazide and labetalol at home. -Will hold antihypertensives for 48 hours s/p likely ischemic event, DW neuro could restart one today, but BP is fine, plan to restart CAROLYNE (acute kidney injury) 06/19/2022 Assessment & Plan (01/08/2024 11:13 PM EDT): HX CKD3 -baseline cr 1.5-1.7, to 1.9 on admi, peaked at 2.7, now down to 2.3 - consider hypoperfusion, Rhabdomyolysis initially mild had probably been worse in the days prior to him coming in so could have affected at that time, restarting LR as UA indicates dehydration to some degree. At least one episode of retention 800cc . Will straight cath and start flomax. Renal has been watching, no active intervention, and recommends outpatient monitoring of electrolytes. Assessment & Plan (05/14/2023 2:41 PM EDT): Lab work on 05/07/23 show renal insufficiency with Cr of 1.80 with eGFR 40. This has trended up from his baseline. Patient does have history of passing kidney stones, currently denies any irritative voiding symptoms other than some urinary urgency. Denies any flank pain. Avoid nephrotoxic agents, avoid NSAID's, discussed maintaining adequate hydration, renally dose morphine, and obtain post-op CBP. Assessment & Plan (06/20/2022 5:19 PM EDT): Patient appears to have creatinine ranging approximately 1.1-1.2 in the past several months, stable. UA with 10wbc, reflexed to culture, no symptms. Cerebrovascular accident (CV A) due to thrombosis of right middle cerebral artery 06/19/2022 Assessment & Plan (11/10/2023 3:01 PM EDT): He has a history for [place] ES and an ILR was inserted due to having a complex history of having TIA and stroke symptoms. Back in April 2023 his ILR was alerted to this office that reported 3 episodes of atrial fibrillation. His [id number] score was noted to be a 4 and he was started on Eliquis 5 mg twice daily which she is continuing without interruption. He would like to have his ILR removed now that we did find atrial fibrillation on the monitor. We will set this up for this to be removed. Assessment & Plan (05/14/2023 2:57 PM EDT): Patient has quite a complex history of a double stroke vs recurrent TIA vs PRES (posterior reversible encephalopathy syndrome), described as hypertensive encephalopathy with severe headache and syncope with initial onset in 2016. He was hospitalized at [facility], found to have a partially occlusive thrombus in the right superior branch of M2 on his head MRI. CTA of the neck did not demonstrate any extracerebral carotid disease. He was found to have a PFO, but no other source of thrombus was discovered. He was started on CPAP and neuropysch testing was done with some deficits noted. He was again hospitalized in 2019 with a recurrence of severe, 10/[address] deficits[address] CT/CTA and MRI were without acute changes.He had an Echo and monitored on [facility]. Questionable seizure on EEG, started on Keppra which was stopped after a month. He was previously seen by neurology, at [facility] and who ultimately determined low suspicion of seizure, recommended lifelong aspirin. Has not been seen by neurology since 2019, has not had any recurrence of headaches or syncope since 2019. He now follows with [facility] and had a Biotronik implantable loop recorder place on 09/27/22 for continued monitoring for arrhythmias as he had no evidence of abnormalities on previous 30-day monitor. The Biotronik ILR reported 3 episodes of Atrial fibrillation on 04/27/23 while he was asleep. He has a CHADSVASc score of 4 and per /cardiology, he was instructed to stop aspirin 81 mg PO daily onl 05/06/23 and begin anticoagulation with Eliquis 5 mg PO BID for new onset atrial fibrillation. Assessment & Plan (10/11/2022 3:47 PM EST): Patient has an implantable loop recorder that was placed about 2 weeks ago. I removed the dressing and closure device. The area appears well healed, without any drainage. We will continue to monitor the loop recorder. For now we will continue him on aspirin alone as he has had no evidence on his previous 30-day monitor. Assessment & Plan (06/20/2022 5:23 PM EDT): New small strokes 1 in the right temporal area and 1 in the right parietal area. Brings up the possibility of embolic disease. Echocardiogram shows a patent foraminal ovale, confirmed with cardiology. Ultrasounds of the legs negative for DVT. Need 30-day event monitor on discharge if he does not show any evidence for A. Fib Discussed today with teleneurology. Continue high-dose statin, dual antiplatelet therapy(once we confirmed with a follow-up CT that there was no hemorrhagic conversion). Patient's blood pressure is under excellent control this afternoon, was to keep it under 180 today and then 160 tomorrow. Anticipate restarting his labetalol tomorrow morning. Discussed with the patient and his at the bedside. He will need outpatient neurology follow-up. Anticipate discharge tomorrow morning. 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 Mcgrath/hematology, last seen on 09/09/2022, for management of stage I low-grade follicular lymphoma, diagnosed by biopsy on 11/30/21 and treated with radiation therapy to the right cervical area. PET CT scan showed no evidence of disease outside of his cervical node. He underwent a bone marrow biopsy which did not show any evidence of follicular lymphoma. 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 No current active therapy. Has scheduled follow-up on 06/18/23 with . Primary hypertension 07/01/2017 Assessment & Plan (01/08/2024 11:14 PM EDT): Held home meds with carolyne/hypoperfusion Pressures within range so we have not restarted them. Resolved Problems Problem Noted Date Diagnosed Date Resolved Date Rosacea 05/14/2023 05/14/2023 Acute CVA (cerebrovascular accident) 06/20/2022 05/14/2023 Assessment & Plan (03/12/2023 1:36 PM EDT): No arrhythmias detected thus far on ILR. We will continue to monitor. Bradycardia 06/19/2022 06/20/2022 Assessment & Plan (06/19/2022 7:44 PM EDT): Heart rate ranging in the mid 50s. May be related to patient's labetalol, which he did take this morning. -Cardiac monitoring -holding labetalol as above given question of ischemic event Elevated AST (SGOT) 06/19/2022 05/14/20 Assessment & Plan (06/20/2022 5:17 PM EDT): Patient appears to have chronically mildly elevated AST. On presentation AST 50, consistent with prior measurements. LFTs otherwise within normal limits. Aphasia 10/19/2019 05/14/2023 Hypokalemia 07/02/2017 05/14/2023 Hypomagnesemia 07/02/2017 05/14/2023 Hypophosphatasia 07/02/2017 05/14/2023 Toxic metabolic encephalopathy 07/01/2017 05/14/2023 Overview (07/01/2017): Likely due to the acute hypertension. If altered mental status does not improved with the control of BP, other causes like infections (viral meningitis) should be consider, as well as neuro consult and brain MRI. On mechanically assisted ventilation 07/01/2017 05/14/2023 Overview (07/01/2017): For airway protection. If tomorrow following commands and BP control, probably could be extubated. Encounters Date Type Department Care Team Description 04/15/2025 12:27 PM EDT - 04/15/2025 11:59 PM EDT Hospital Encounter [facility] [address] [place] [address] Monika Houston CNP Discharge Disposition: Home or Self Care 03/29/2025 3:31 PM EDT - 03/29/2025 11:59 PM EDT Hospital Encounter [facility] [address] [address] Zabrina Mckeon NP Discharge Disposition: Home or Self Care 03/29/2025 Transcribe Orders [facility] [address] [id number] Zabrina Mckeon NP Hx of colonic polyps (Primary Dx); Diarrhea, functional; Anemia, unspecified type from Last 3 Months Immunizations Immunization Administration Dates Next Due COVID-19 (Pre-06/23) Pfizer Vaccine, Bivalent 12+ 06/26/2022 COVID-19 (Pre-06/23) Pfizer Vaccine, mRNA, PF 06/26/2022,02/18/2022,12/13/2020,11/18 INFLUENZA, SPLIT VIRUS, TRIVALENT PF 06/29/2013 Influenza High-Dose Quadriva lent Preservative Free IM 06/15/2022,06/07/2021,06/16/2020 Influenza High-Dose Trivalen t Preservative Free IM 06/26/2024,05/24/2019,05/21/2018 Influenza Quadrivalent Prese rvative Free IM 05/16/2017,05/10/2016,05/15/2015 Influenza, Unspecified Formulation 08/28/2012,,08/05/2003 Pneumococcal conjugate PCV13 10/19/2019( Deferred: Contraindication),11/10/2017 Pneumococcal polysaccharide PPSV23 11/19/2018, Td (adult),2 Lf Tetanus Toxo id, PF, Adsorbed 01/16/2023 Td, unspecified formulation 08/18/2003 Tdap 08/06/2013 Zoster live 11/26/2016 Family History Medical History Relation Comments No Known Problems Brother 1 No Known Problems Brother 2 Pancreatic cancer Brother 3 Leukemia Father Cancer Mother Breast cancer Sister 1 No Known Problems Sister 2 No Known Problems Sister 3 No Known Problems Sister 4 No Known Problems Sister 5 Relation Status Comments Brother 1 Alive Brother 2 Alive Brother 3 Alive Father (Age 75) Mother (Age 94) Sister 1 Alive Sister 2 Alive Sister 3 Alive Sister 4 Alive Sister 5 Alive Social History Tobacco Use Types Packs/Day Years Used Date Smoking Tobacco: Every Day Cigarettes 0.5 50 Started: 05/16/1973; Last attempted to quit: 05/16/2023 Smokeless Tobacco: Never Tobacco Cessation:Ready to Q uit: Not Asked; Counseling Given: Not Answered Alcohol Use Standard Drinks/Week Comments Not Currently 4 (1 standard drink = 0.6 oz pure alcohol) drinks 3-4 bourbons every Wood[employer] Education Answer Date Recorded Are you interested [...] Orientation Straight 09/08/2017 9: 38 AM EST Last Filed Vital Signs Vital Sign Reading Time Taken Comments Blood Pressure 175/100 01/07/2025 2:28 PM EDT Pulse 54 01/07/2025 1:56 PM EDT Temperature 36.6 C (97.9 F) 10/22/2024 6:01 PM EST Respiratory Rate 16 10/22/2024 6:01 PM EST Oxygen Saturation 92% 10/22/2024 6:01 PM EST Inhaled Oxygen Concentration 1% 06/26/2023 1 2:12 PM EDT Weight 81.6 kg (180 lb) 01/07/2025 1:56 PM EDT Height 167.6 cm (5' 5.98 ) 01/07/2025 1:56 PM ED T Body Mass Index 29.07 01/07/2025 1:56 PM EDT Plan of Treatment Upcoming Encounters Date Type Department Care Team (Latest Contact Info) Description 06/30/2025 Procedure Pass [facility] Endoscopy Admitting Dept Virtual Department [address] [place] [address] 06/30/2025 2:00 PM EDT Hospital Encounter [facility] Endoscopy Admitting Dept Virtual Department [address] [place] [address] Jose Sanchez MD [address] [address] [email or web address] 06/30/2025 2:00 PM EDT - 06/30/2025 2:30 PM EDT Surgery [facility] Endoscopy Admitting Dept Virtual Department [address] [place] [address] Jose Sanchez MD 10 [facility] [address] [place] [address] [email or web address] 07/08/2025 2:00 PM EST Office Visit [facility] [address] [place] [address] Ramos Mcgrath DO [address] [place] [address] [email or web address] 07/11/2025 3:00 PM EST Office Visit [facility] [address], [address] [place] [address] Belkis Ratliff PA-C [address] [place] [id number] [email or web address] 09/07/2025 2:15 PM EST Office Visit [facility] [address] [place] [address] Unknown, Unknown, Zabrina Mead, EVAN [address] [place] [address] Scheduled Procedures Name Priority Associated Diagnoses Date/Ti me ESOPHAGOGASTRODUODENOSCOPY Hx of colonic polyps 06/30/2025 2:00 PM EDT COLONOSCOPY Hx of colonic polyps 06/30/2025 2:00 PM EDT Health Maintenance Due Date Last Done Comments DEPRESSION SCREENING 1964 HEPATITIS C SCREENING 1970 COLOGUARD 1997 FIT TEST 1997 FOBT 1997 SIGMOIDOSCOPY 1997 VIRTUAL COLONOSCOPY 1997 ZOSTER VACCINES (1 of 2) 01/21/2017 11/26/2016 INFLUENZA VACCINE (#1) 2025 , 06/26/2024, 06/15/2022, Additional history exists COVID-19 VACCINE (2024- season) 2025 06/26/2024, 06/26/2022, 06/26/2022, Additional history exists BLOOD PRESSURE 07/10/2025 01/07/2025 LUNG CANCER SCREENING (LDCT Only) 08/26/2025 08/26/2024, 08/08/2023, 01/15/2023 SMOKING Hx and SMOKELESS TOBACCO SCREENING 10/22/2025 10/22/2024 CREATININE LEVEL 03/29/2026 03/29/2025, 09/2023, 01/08/2024, Additional history exists POTASSIUM LEVEL 03/29/2026 03/29/2025, 11/0 09/2023, 01/08/2024, Additional history exists RSV VACCINE (1 - 1-dose 75+ series) 2027 COLONOSCOPY 10/05/2029 10/05/2019 COLORECTAL CANCER SCREENING 10/05/2029 Adult Td,Tdap Booster 01/16/2033 01/16/2023 , 08/06/2013, 08/18/2003 PNEUMOCOCCAL VACCINES (50+ years) Completed 11/19/2018, 11/10/2017, 08/17/2013 HEPATITIS A VACCINES Aged Out No long er eligible based on patient's age to complete this topic HIB VACCINES Aged Out No longer eligi ble based on patient's age to complete this topic MENINGOCOCCAL VACCINES (ACWY) Aged Out No longer eligible based on patient's age to complete this topic MENINGOCOCCAL VACCINES (B) Aged Out N o longer eligible based on patient's age to complete this topic Medical Devices Implanted Type Area Fur Polisher Device Identifier Shelf Expiration Date Model / Serial / Lot Implantable Monitor Implantable Monitor Lens Lens Bilateral: Eye Humerus Stem Size 4 Shoulder Humeral Aequalis Pure Titanium Coat Ascend Flexible Standard Anatomic B - [id number] Implanted:Qty: 1 on 06/26/2023 by Reji De La Garza DO at [facility] Left: Shoulder [employer] 03/04/2028 [id number] / [id number] / [id number] Post Press-Fit Short 7mm Perform Reversed Threaded Aequalis - [id number] Implanted:Qty: 1 on 06/26/2023 by Reji De La Garza DO at [facility] Left: Shoulder [employer] 04/03/2028 [id number] / [id number] / [id number] Baseplate Glenoid 29mm Aequalis Standard - [id number] Implanted:Qty: 1 on 06/26/2023 by Reji De La Garza DO at [facility] Left: Shoulder [employer] 01/09/2026 [id number] / [id number] / [id number] Screw Bone 5x18mm Perform Reverse - [id number] Implanted:Qty: 2 on 06/26/2023 by Reji De La Garza DO at [facility] Left: Shoulder [employer] [id number] / / Screw Bone 30mm Perform Reverse - [id number] Implanted:Qty: 1 on 06/26/2023 by Reji De La Garza DO at [facility] Left: Shoulder [employer] [id number] / / Screw Bone 34mm Perform Reverse - [id number] Implanted:Qty: 1 on 06/26/2023 by Reji De La Garza DO at [facility] Left: Shoulder [employer] [id number] / / Glenosphere Component 39mm Perform Reversed Standard - [id number] Implanted:Qty: 1 on 06/26/2023 by Reji De La Garza, at [facility] Left: Shoulder [employer] 03/04/2028 [id number] / [id number] / [id number] Shoulder Insert 12.5deg 39mm Flex Plus 6mm Aequalis Ascend Reversed - [id number] Implanted:Qty: 1 on 06/26/2023 by Reji De La Garza DO at [facility] Left: Shoulder [employer] 07/30/2027 [id number] / [id number] / [id number] Tray 1.5mm 0.0 Reversed Shoulder Ascend Flex Offset Plus - [id number] Implanted:Qty: 1 on 06/26/2023 by Reji De La Garza, at [facility] Left: Shoulder [employer] [id number] / [id number] / [id number] Implanted - Out of Service Type Area Fur Polisher Device Identifier Shelf Expi ration Date Model / Serial / Lot Titanium Plates To Neck Procedures Procedure Name Priority Date/Time Associated Diagnosis Comments CBC AND DIFFERENTIAL Routine 04/15/2025 12:41 PM EDT Hx of colonic polyps Diarrhea, functional Anemia, unspecified type CBC Routine 03/29/2025 3:32 PM EDT Hx of colonic polyps Diarrhea, functional COMPREHENSIVE METABOLIC PANEL Routine 03/29/2025 3:32 PM EDT Hx of colonic polyps Diarrhea, functional C-REACTIVE PROTEIN Routine 03/29/2025 3: 32 PM EDT Hx of colonic polyps Diarrhea, functional CT CHEST LUNG CANCER SCREENING INITIAL Routine 08/26/2024 3:12 PM EST Cigarette smoker ENDOSCOPY, COLON 10/05/2019 10:2 6 AM EST from Last 3 Months or Most Recently Relevant to Health Maintenance Results * (ABNORMAL) CBC and differential (04/15/2025 12:41 PM EDT) WBC 6.08 4.00 - 11.00 K/uL [facility] RBC 4.39(L) 4.50 - 5.90 M/uL [facility] HGB 13.3(L) 13.5 - 17.5 g/dL [facility] HCT 42.1 41.0 - 53.0 % [facility] PLT 276 150 - 450 K/uL [facility] MCV 95.9 80.0 - 100.0 fL [facility] MCH 30.3 27.0 - 31.0 pg [facility] MCHC 31.6(L) 32.0 - 36.0 g/dL [facility] RDW 14.6(H) 11.5 - 14.5 % [facility] MPV 10.0 8.4 - 12.0 fL [facility] NRBC 0.00 0.00 /100 WBCs [facility] ABSOLUTE NRBC 0.00 0.00 K/uL [facility] DIFF METHOD Auto [facility] NEUTS 57.4 48.0 - 76.0 % [facility] LYMPHS 32.4 18.0 - 41.0 % [facility] MONOS 7.7 4.0 - 11.0 % [facility] EOS 1.6 0.0 - 5.0 % [facility] BASOS 0.7 0.0 - 1.5 % [facility] Granulocytes, immature (%) 0.2 0.0 - 0.9 % [facility] ABSOLUTE NEUTS 3.49 1.92 - 7.60 K/uL [facility] ABSOLUTE LYMPHS 1.97 0.72 - 4.10 K/uL [facility] ABSOLUTE MONOS 0.47 0.16 - 1.10 K/uL [facility] ABSOLUTE EOS 0.10 0.00 - 0.50 K/uL [facility] ABSOLUTE BASOS 0.04 0.00 - 0.15 K/uL [facility] Granulocytes, immature 0.01 0.00 - 0.09 K/uL [facility] Blood 04/15/2025 12:4 1 PM EDT 04/15/2025 12:43 PM EDT us Monika Bernsteine Celso SANTOS LAB BLOOD ORDERABLES Final Result [address] [address] * (ABNORMAL) Comprehensive metabolic panel (03/29/2025 3:32 PM EDT) SODIUM 141 133 - 146 mmol/L [facility] POTASSIUM 4.1 3.3 - 5.1 mmol/L [facility] CHLORIDE 104 96 - 108 mmol/L [facility] CO2 25 21 - 35 mmol/L [facility] BUN 25(H) 6 - 19 mg/dL [facility] CREATININE 2.00(H) 0.5 - 1.5 mg/dL [facility] GLUCOSE 93 70 - 99 mg/dL [facility] ALBUMIN 4.4 3.9 - 4.8 g/dL [facility] TOTAL PROTEIN 7.4 6.5 - 8.0 g/dL [facility] CALCIUM 9.3 8.4 - 10.3 mg/dL [facility] ALKALINE PHOSPHATASE 74 39 - 117 U/L [facility] TOTAL BILIRUBIN 1.0 0.0 - 1.2 mg/dL [facility] AST 21 0 - 37 U/L [facility] ALT 29 0 - 40 U/L [facility] GLOBULIN 3.0 1 - 4.8 g/dL [facility] EGFR 35(L) >59 mL/min/1.7 3m2 [facility] Comment:Estimated glomerular filtration rate calculated using the CKD-EPI refit equation. ANION GAP 16 10 - 20 mmol/L [facility] Blood 03/29/2025 3:32 PM EDT 03/29/2025 3:44 PM EDT us Zabrina Mckeon SENIOR MECHANICAL TECHNICIAN LAB BLOOD ORDER LEONARDO Final Result [address] [address] * (ABNORMAL) CBC (03/29/2025 3:32 PM EDT) WBC 5.65 4.00 - 11.00 K/uL [facility] RBC 4.40(L) 4.50 - 5.90 M/uL [facility] HGB 13.4(L) 13.5 - 17.5 g/dL [facility] HCT 42.5 41.0 - 53.0 % [facility] PLT 285 150 - 450 K/uL [facility] MCV 96.6 80.0 - 100.0 fL [facility] MCH 30.5 27.0 - 31.0 pg [facility] MCHC 31.5(L) 32.0 - 36.0 g/dL [facility] RDW 14.5 11.5 - 14.5 % [facility] MPV 9.8 8.4 - 12.0 fL [facility] NRBC 0.00 0.00 /100 WBCs [facility] ABSOLUTE NRBC 0.00 0.00 K/uL [facility] Blood 03/29/2025 3:32 PM EDT 03/29/2025 3:44 PM EDT Zabrina Mckeon SENIOR MECHANICAL TECHNICIAN LAB BLOOD ORDER LEONARDO Final Result [address] [address] * C-Reactive Protein (03/29/2025 3:32 PM EDT) C REACTIVE PROTEIN <3.0 0.0 - 4.0 mg/L [facility] Blood 03/29/2025 3:32 PM EDT 03/29/2025 3:44 PM EDT Zabrina Mckeon SENIOR MECHANICAL TECHNICIAN LAB BLOOD ORDER LEONARDO Final Result [address] [address] * CT CHEST LUNG CANCER SCREENING INITIAL (08/26/2024 3:12 PM EST) Anatomical Region Laterality Modality Chest Computed Tomogra phy 08/30/2024 3:36 PM EST Impressions 08/30/2024 3:40 PM EST Lung-RADS Category: 2. The identified solid nodule has a very low likelihood of becoming a clinically active cancer, due to size and/or lack of growth. RECOMMENDATIONS: Continue Lung-RADS Annual Lung Cancer Screening Chest CT in 12-14 months if patient meets eligibility criteria. To order, please type CT CHEST SCREENING (CT.TH.CHESTSCRS) and select ANNUAL for patient program status. Explanation of the Lung-RADS categories can be found at: [email or web address] Narrative 08/30/2024 3:[address] CHEST LUNG CANCER SCREENING INITIAL Referring clinician's provided indication for this examination in Epic: Lung Cancer Screening - CURRENT smoker (20+ pk-yrs, age 50-80) - ICD -10 F17.210 TECHNIQUE: Low dose multidetector CT of the chest was performed without intravenous contrast using tailored dose modulation techniques. COMPARISON: CT ED TRAUMA ANGIO CHEST/ABDOMEN WITH T-SPINE REFORMATS WITH C.. 2023- FINDINGS: Devices/Tubes/Lines: None. Lungs: The central airways are patent. There are calcified granulomas in the lungs. There is linear atelectasis in the anterobasilar left lower lobe and medial right middle lobe. Resolution of previously demonstrated atelectasis in the right lower lobe. There is mild centrilobular emphysema in the upper lungs. Scattered pulmonary nodules measuring up to 3 mm, for example in the right upper lobe, 3:28, unchanged since 12/30/2023. No new or enlarging pulmonary nodules. Pleura: Normal. No pleural effusion or pneumothorax. Mediastinum: Normal. No thyroid nodules. Heart and pericardium are normal. Mild amount of coronary calcifications. Lymph Nodes: Normal. No enlarged supraclavicular, axillary, mediastinal, or hilar lymph nodes. Upper Abdomen: Normal. Absence of intravenous contrast and low dose technique limits sensitivity for detecting small lesions, solid organ and vascular findings. No abnormality detected in the visualized upper abdomen. Chest Wall: Normal. No chest wall mass. Bones: No suspicious lytic or blastic lesions. Old healed right rib fractures. Procedure Note Mendel West MD - 08/30/2024 CT CHEST LUNG CANCER SCREENING INITIAL Referring clinician's provided indication for this examination in [facility]:Lung Cancer Screening - CURRENT smoker (20+ pk-yrs, age 50-80) - ICD -10F17.210 TECHNIQUE: Low dose multidetector CT of the chest was performed withoutintravenous contrast using tailored dose modulation techniques. COMPARISON: CT ED TRAUMA ANGIO CHEST/ABDOMEN WITH T-SPINE REFORMATS WITHC.. 2023- FINDINGS: Devices/Tubes/Lines: None. Lungs: The central airways are patent. There are calcified granulomas inthe lungs. There is linear atelectasis in the anterobasilar left lowerlobe and medial right middle lobe. Resolution of previously demonstratedatelectasis in the right lower lobe. There is mild centrilobular emphysemain the upper lungs. Scattered pulmonary nodules measuring up to 3 mm, for example in the rightupper lobe, 3:28, unchanged since 12/30/2023. No new or enlarging pulmonary nodules. Pleura: Normal. No pleural effusion or pneumothorax. Mediastinum: Normal. No thyroid nodules. Heart and pericardium are normal.Mild amount of coronary calcifications. Lymph Nodes: Normal. No enlarged supraclavicular, axillary, mediastinal,or hilar lymph nodes. Upper Abdomen: Normal. Absence of intravenous contrast and low dosetechnique limits sensitivity for detecting small lesions, solid organ andvascular findings. No abnormality detected in the visualized upperabdomen. Chest Wall: Normal. No chest wall mass. Bones: No suspicious lytic or blastic lesions. Old healed right ribfractures. IMPRESSION: Lung-RADS Category: 2. The identified solid nodule has a very lowlikelihood of becoming a clinically active cancer, due to size and/or lackof growth. RECOMMENDATIONS: Continue Lung-RADS Annual Lung Cancer Screening Chest CT in 12-14 monthsif patient meets eligibility criteria. To order, please type CT CHEST SCREENING (CT.TH.CHESTSCRS) and selectANNUAL for patient program status. Explanation of the Lung-RADS categories can be found at:[email or web address] us Farrah Camargo MD IMG CT CHEST Final Re sult * ENDOSCOPY, COLON (10/05/2019 10:26 AM EST) Narrative Transcriptions Jose Sanchez MD - 10/05/2019 10:26 AM EST Patient Name: nAtony Edwards Attending MD:: JOSE SANCHEZ MD Procedure Date: 10/05/2019 10:26 AM Date of : 1950 Age: 69 Admit Type: Outpatient Gender: Male Room: [place] [address] Referring MD: Anthony Real MD Exam Type: Colonoscopy Indications: High risk colon cancer surveillance: Personal historyof colonic polyps, Last colonoscopy: 2013 Medications: Monitored Anesthesia Care Procedure: Informed consent was obtained from the patient after discussion of the indications, limitations,alternatives, benefits, and risks of the procedure. Risksspecifically discussed include but are not limited to medication reactions, missed lesions, bleeding, perforation, orthe need for emergent surgery. Throughout the procedure, the patient's blood pressure, pulse, end-tidal CO2, and oxygen saturations were monitored continuously. The Olympus adult variable colonoscope [id number] #2 was introduced through the anus and advanced to theterminal ileum. The colonoscopy was performed withoutdifficulty. The patient tolerated the procedure well. The qualityof the bowel preparation was good. Complications: No immediate complications. Estimated blood loss:None. Findings: The perianal and digital rectal examinations werenormal. Multiple small-mouthed diverticula were found in the sigmoid colon. Six sessile polyps were found in the recto-sigmoidcolon, sigmoid colon, transverse colon and ascending colon.The polyps were 2 to 5 mm in size. These polyps wereremoved with a cold snare. Resection and retrieval werecomplete. The rectum, descending colon, splenic flexure, cecum, appendiceal orifice, ileocecal valve, ileum, rectum (on retroflexion) and ascending colon (on retroflexion) appeared normal. Impression: - Diverticulosis in the sigmoid colon. - Six 2 to 5 mm polyps at the recto-sigmoid colon, inthe sigmoid colon, in the transverse colon and in the ascending colon, removed with a cold snare. Resectedand retrieved. - The rectum, descending colon, splenic flexure, cecum, appendiceal orifice, ileocecal valve, terminal ileumand ascending colon are normal. Recommendation: - Discharge patient to home. - High fiber diet. - Continue present medications. - Await pathology results. - Repeat colonoscopy in 5 years for surveillance. - You have diverticulosis so please eat a high fiberdiet. JOSE SANCHEZ MD 10/05/2019 11:09:05 AM This report has been signed electronically. Number of Addenda: 0 Note Initiated On: 10/05/2019 10:26 AM Procedure Code(s): --- Professional --- 55917, Colonoscopy, flexible; with removal of tumor(s), polyp(s), or other lesion(s) by snare technique --- Technical --- 62675, Colonoscopy, flexible; with removal of tumor(s), polyp(s), or other lesion(s) by snare technique Diagnosis Code(s): --- Professional --- Z86.010, Personal history of colonic polyps D12.7, Benign neoplasm of rectosigmoid junction D12.5, Benign neoplasm of sigmoid colon D12.3, Benign neoplasm of transverse colon (hepatic flexure orsplenic flexure) D12.2, Benign neoplasm of ascending colon K57.30, Diverticulosis of large intestine without perforation orabscess without bleeding --- Technical --- Z86.010, Personal history of colonic polyps D12.7, Benign neoplasm of rectosigmoid junction D12.5, Benign neoplasm of sigmoid colon D12.3, Benign neoplasm of transverse colon (hepatic flexure orsplenic flexure) D12.2, Benign neoplasm of ascending colon K57.30, Diverticulosis of large intestine without perforation orabscess without bleeding CPT copyright 2018 [employer]. All rights reserved. The codes documented in this report are preliminary and upon justice of the peace reviewmay be revised to meet current compliance requirements. Procedure Date: 10/05/2019 10:26:56 AM [address] [place] [address] Anthony Real MD GI PROCEDURE ORDERABLES Final Re sult from Last 3 Months or Most Recently Relevant to Health Maintenance Insurance [facility] Member Subscriber Plan / Payer ( fective 2015-Present) Name:Antony Edwards Relation to Subscriber:Spouse Name:SARAYVETTE Ingram Date of :1954 (Home) Address: [address] [place] [phone] Payer ID:[id number] (NAIC) Group ID:[id number] Type:[facility] Address: [facility] [id number] [place] [address] MEDICARE A [facility] Subscriber Plan / Payer ( fective 2015-Present) Name:Antony Edwards Relation to Subscriber:Spouse Name:KENYATTA RUIZBEYOAN Ingram Date of :1954 (Home) Address: [address] [place] [id number] Payer ID:[id number] (NAIC) Group ID:[id number] Type:PPO Address: [id number] [place] [address] [place] [address] Subscriber Plan / Payer ( fective 2015-Present) Name:Antony Edwards Relation to Subscriber:Spouse Name:KENYATTA RUIZBEYOAN Ingram Date of :1954 (Home) Address: [address] [place] [phone] Payer ID:[id number] (NAIC) Group ID:[id number] Type:PPO Address: [address] [place] [address] MEDICARE A [facility] [employer] Member Subscriber Plan / Payer (Ef fective 2015-Present) Name:Antony Edwards Relation to Subscriber:Spouse Name:YVETTE RUIZ Date of :1954 (Home) Address: [address] [place] [id number] Payer ID:[id number] (NAIC) Group ID:[id number] Type:[facility] Address: [facility] [id number] [place] [id number] MEDICARE A [facility] Member Subscriber Plan / Payer (Ef fective 2015-Present) Name:Antony Edwards Relation to Subscriber:Spouse Name:YVETTE RUIZ Date of :1954 (Home) Address: [address] [place] [phone] Payer ID:[id number] (NAIC) Group ID:[id number] Type:PPO Address: [address] [place] [address] MEDICARE A [facility] Member Subscriber Plan / Payer ( fective 2015-Present) Name:Antony Edwards Relation to Subscriber:Spouse Name:YVETTE RUIZ Date of :1954 (Home) Address: [address] [place] [address] Payer ID:[id number] (NAIC) Group ID:[id number] Type:PPO Address: [address] [place] [address] [place] [address] [place] [address] FEDERAL Member Subscriber Plan / Payer ( fective 2015-Present) Name:Antony Edwards Relation to Subscriber:Spouse Name:YVETTE RUIZ Date of :1954 (Home) Address: [address] [place] [id number] Payer ID:[id number] (NAIC) Group ID:[id number] Type:PPO Address: [id number] [place] [address] MEDICARE A [facility] [employer] Member Subscriber Plan / Payer ( fective 2015-Present) Name:Antony Edwards Relation to Subscriber:Spouse Name:YVETTE RUIZ Date of :1954 (Home) Address: [address] [place] [phone] Payer ID:[id number] (NAIC) Group ID:[id number] Type:PPO Address: [address] [place] [address] MEDICARE A [facility] [employer] Member Subscriber Plan / Payer (Ef fective 2015-Present) Name:Reecew Relation to Subscriber:Spouse Name:YVETTE RUIZ Date of :1954 (Home) Address: [address] [place] [phone] Payer ID:[id number] (NAIC) Group ID:[id number] Type:PPO Address: [facility] [id number] [place] [address] MEDICARE A Advance Directives For more information, please contact: [phone] (9AM - 5PM [facility], Friday-Friday) Documents on File Type Date Recorded Patient Medical Director Expl anation Healthcare Proxy 10/22/2019 9:29 AM * Full Code (Latest Code Status on File) Date Activated Date Inactivated Comments 12/30/2023 9:01 PM Question Answer Comments Code Status Confirmed With: Patient Code Status Communicated To: Inpatient Attending * Full Code Date Activated Date Inactivated Comments 06/19/2022 7:59 PM 12/30/2023 9:01 PM Question Answer Comments Code Status Confirmed With: PatientFamily * Full Code (Presumed) Date Activated Date Inactivated Comments 10/19/2019 2:50 AM 10/19/2019 6:46 PM * Full Code (Confirmed) Date Activated Date Inactivated Comments 07/01/2017 2:52 PM 07/02/2017 5:55 PM Question Answer Comments Code Discussion Comments: Healthcare Agents on File Name Relationship Healthcare Agent Relationship Communication Yvette Ruiz Life Partner .Primary Health Care Agent (Proxy form on file) [email or web address] Automation Application Engineer Relationship Specialty Start Date End Date Farrah Camargo MD [address] [place] [phone] [email or web address] PCP - General Family Medicine 10/22/24 Jeanie Mohan MD [address] [place] [address] Orthopedics & Sports Medicine, [facility] [place] [address] [email or web address] Historical LMR Provider 06/19/17 Ramos Mcgrath DO [address] [place] [address] [email or web address] Primary Oncologist Hematology and Oncology 12/15/21 Viki Melendrez FNP [address] [place] [address] [email or web address] Nurse Practitioner Oncology 03/06/22 Additional Source Comments The information contained in this document represents components of the legal health record. It is not the complete legal health record.[facility]
--- OUTSIDE RECORDS SUMMARY | 2025-06-21 19:31 | XMS_ITS | Encounter Summary ---
Author Organization [facility] Address [address] [place] [address] Phone Care Team Providers Care Car Seat Maker Name Role Phone Jeanie Mohan MD Unavailable [phone] Ramos Mcgrath DO Unavailable [phone] Carmita Santiago AIRBORNE AND AIR DELIVERY SPECIALIST Primary Care Provider Viki Melendrez RUBBER ENGRAVER Unavailable [phone] Farrah Camargo MD Primary Care Provider + Farrah Camargo MD Primary Care Provider + Farrah Camargo MD Primary Care Provider + Encounter Details Date Type Department Care Team (Late st Contact Info) Description 07/18/2022 Procedure Pass [facility], Ct Scan - [address] [address] Social History Tobacco Use Types Packs/Day Years [...] (Latest Contact Info) Description 06/30/2025 Procedure Pass [facility] Endoscopy Admitting Dept Virtual Department [address] [place] [address] 06/30/2025 2:00 PM EDT Hospital Encounter [facility] Endoscopy Admitting Dept Virtual Department [address] [place] [address] Jose Marshall MD [address] [address] [email or web address] 06/30/2025 2:00 PM EDT - 06/30/2025 2:30 PM EDT Surgery [facility] Endoscopy Admitting Dept Virtual Department [address] [place] [address] Jose Marshall MD [address] [place] [address] [email or web address] ESOPHAGOGASTRODUODENOSCOPY 07/08/2025 2:00 PM EST Office Visit [facility] 30 [place] [address] Ramos Mcgrath DO 30 [place] [address] [email or web address] .[place].[facility] 07/11/2025 3:00 PM EST Office Visit [facility] [address] [place] [address] 3rd Floor, [address] [place] [address] Belkis Ratliff PA-C [address] [place] [address] [email or web address] 09/07/2025 2:15 PM EST Office Visit [facility] 10 [place] [address] Unknown, Unknown, MD Mckeon, Zabrina Alford, EVAN 10 [place] [address] Scheduled Procedures Name Priority Associated Diagnoses Date/Ti me ESOPHAGOGASTRODUODENOSCOPY Hx of colonic polyps 06/30/2025 2:00 PM EDT COLONOSCOPY Hx of colonic polyps 06/30/2025 2:00 PM EDT documented as of this encounter Visit Diagnoses Not on filedocumented in this encounter Additional Health Concerns Infection Onset Date Last Indicated Resolved Time CDiff-Risk 03/29/2025 03/29/2025 04/05/2025 1:21 AM EDT documented as of this encounter Care Teams Car Seat Maker Relationship Specialty Start Date End Date Carmita Santiago CNP 10 [place] [address] [email or web address] PCP - General Family Medicine 12/19/21 07/21/23 Farrah Camargo MD [address] [place] [address] PCP - General Family Medicine 07/22/23 12/29/23 Farrah Camargo MD 30 [place] [address] PCP - General Family Medicine 12/30/23 10/21/24 Farrah Camargo MD [address] [place] [address] PCP - General Family Medicine 10/22/24 Jeanie Mohan MD [address] [place] [address] Orthopedics & Sports Medicine, [facility] [place] [address] [email or web address] Historical LMR Provider 06/19/17 Ramos Mcgrath DO 30 [place] [address] [email or web address] Primary Oncologist Hematology and Oncology 12/15/21 Viki Melendrez FNP 30 [place] [address] [email or web address] Nurse Practitioner Oncology 03/06/22 documented as of this encounter Additional Source Comments The information contained in this document represents components of the legal health record. It is not the complete legal health record.[facility]
--- OUTSIDE RECORDS SUMMARY | 2025-06-21 19:31 | XMS_ITS | Encounter Summary ---
Author Organization [facility] Address [address] [place] [address] [place] [address] Phone Care Team Providers Care Medication Aid Name Role Phone Jeanie Mohan MD Unavailable Ramos Mcgrath DO Unavailable [phone] Viki Melendrez DIRECTOR OF GRANTS Unavailable Farrah Camargo MD Primary Care Provider + Encounter Details Date Type Department Care Team (Late st Contact Info) Description 10/22/2024 Procedure Pass [facility], Ct Scan - [address] [address] Social History Tobacco Use Types Packs/Day Years [...] 10/22/2024 8:26 AM Eliezer Mahajan RN * [place] Suicide Severity Rating Scale (Screener/Recent Self-Report) Question [...] Pass [facility] Endoscopy Admitting Dept Virtual Department [address] [place] [address] 06/30/2025 2:00 PM EDT Hospital Encounter [facility] Endoscopy Admitting Dept Virtual Department [address] [place] [address] Jose Marshall MD [address] [place] [address] [email or web address] 06/30/2025 2:00 PM EDT - 06/30/2025 2:30 PM EDT Surgery [facility] Endoscopy Admitting Dept Virtual Department [address] [place] [address] Jose Marshall MD [address] [place] [address] [email or web address] ESOPHAGOGASTRODUODENOSCOPY 07/08/2025 2:00 PM EST Office Visit [facility] 30 [place] [address] Ramos Mcgrath DO 30 [place] [address] [email or web address].[facility] 07/11/2025 3:00 PM EST Office Visit [facility] 22 [facility] 3rd Floor, [address] [place] [address] Belkis Ratliff PA-C [address] [place] [address] [email or web address] 09/07/2025 2:15 PM EST Office Visit [facility] [address] [place] [address] Unknown, Unknown, Zabrina Mead, EVAN [address] [place] [address] Scheduled Procedures Name Priority Associated Diagnoses Date/Ti me ESOPHAGOGASTRODUODENOSCOPY Hx of colonic polyps 06/30/2025 2:00 PM EDT COLONOSCOPY Hx of colonic polyps 06/30/2025 2:00 PM EDT documented as of this encounter Visit Diagnoses Not on filedocumented in this encounter Additional Health Concerns Infection Onset Date Last Indicated Resolved Time CDiff-Risk 03/29/2025 03/29/2025 04/05/2025 1:21 AM EDT documented as of this encounter Care Teams Medication Aid Relationship Specialty Start Date End Date Farrah Camargo MD 70 [place] [address] [email or web address] PCP - General Family Medicine 10/22/24 Jeanie Mohan MD 4 [facility] Orthopedics & Sports Medicine, [facility] [place] [address] [email or web address] Historical LMR Provider 06/19/17 Ramos Mcgrath DO 30 [place] [address] [email or web address] Primary Oncologist Hematology and Oncology 12/15/21 Viki Melendrez FNP 30 [place] [address] [email or web address] Nurse Practitioner Oncology 03/06/22 documented as of this encounter Additional Source Comments The information contained in this document represents components of the legal health record. It is not the complete legal health record.[facility]
--- OUTSIDE RECORDS SUMMARY | 2025-06-21 19:31 | XMS_ITS | Encounter Summary ---
Author Organization [facility] Address [address] [place] [address] Phone Care Team Providers Care Tower Climber Name Role Phone Jesse Larson MD Unavailable [phone] Reji Nam MD Unavailable Jeanie Mohan MD Unavailable Jesse Larson MD Primary Care Provider Anthony Real MD Primary Care Provider [phone] Ramos Mcgrath DO Unavailable [phone] Carmita Santiago STRAIGHT CUTTER MACHINE Primary Care Provider Sophia Alan STRAIGHT CUTTER MACHINE Unavailable Viki Melendrez MANAGER DISCOVERY Unavailable Farrah Camargo MD Primary Care Provider + Farrah Camargo MD Primary Care Provider + Farrah Camargo MD Primary Care Provider + Encounter Details Date Type Department Care Team (Late st Contact Info) Description 07/01/2017 Procedure Pass [facility], Ct Scan - [address] [address] Social History Tobacco Use Types Packs/Day Years [...] Pass [facility] Endoscopy Admitting Dept Virtual Department [address] [place] [address] 06/30/2025 2:00 PM EDT Hospital Encounter [facility] Endoscopy Admitting Dept Virtual Department [address] [place] [address] Jose Marshall MD [address] [place] [address] [email or web address] 06/30/2025 2:00 PM EDT - 06/30/2025 2:30 PM EDT Surgery [facility] Endoscopy Admitting Dept Virtual Department [address] [place] [address] Jose Marshall MD [address] [place] [address] [email or web address] ESOPHAGOGASTRODUODENOSCOPY 07/08/2025 2:00 PM EST Office Visit [facility] at [address] [address] Ramos Mcgrath DO 30 [place] [address] [email or web address] .[email or web address].[facility] 07/11/2025 3:00 PM EST Office Visit [facility] 22 [facility] 3rd Floor, [address] [place] [address] Belkis Ratliff PAKatlyn [address] [place] [address] [email or web address] 09/07/2025 2:15 PM EST Office Visit [facility] 10 [place] [address] Unknown, Unknown, Zabrina Mead, EVAN 10 [place] [address] Scheduled Procedures Name Priority Associated Diagnoses Date/Ti me ESOPHAGOGASTRODUODENOSCOPY Hx of colonic polyps 06/30/2025 2:00 PM EDT COLONOSCOPY Hx of colonic polyps 06/30/2025 2:00 PM EDT documented as of this encounter Visit Diagnoses Not on filedocumented in this encounter Additional Health Concerns Infection Onset Date Last Indicated Resolved Time CDiff-Risk 03/29/2025 03/29/2025 04/05/2025 1:21 AM EDT documented as of this encounter Care Teams Tower Climber Relationship Specialty Start Date End Date Jesse Larson MD [address] [place] [address] [email or web address] PCP - General 07/01/17 10/04/19 Anthony Real MD [address] [place] [phone] [email or web address] PCP - General Family Medicine 10/05/19 12/18/21 Carmita Santiago CNP 10 [place] [address] PCP - General Family Medicine 12/19/21 07/21/23 Farrah Camargo MD [address] [place] [address] [email or web address] PCP - General Family Medicine 07/22/23 12/29/23 Farrah Camargo MD 30 [place] [address] [email or web address] PCP - General Family Medicine 12/30/23 10/21/24 Farrah Camargo MD [address] [place] [address] [email or web address] PCP - General Family Medicine 10/22/24 Jesse Larson MD [address] [place] [address] [email or web address] Historical LMR Provider 06/19/17 Reji Granados MD [address] [place] [address] Historical LMR Provider 06/19/17 Jeanie Mohan MD [address] [place] [address] Orthopedics & Sports Medicine, [place] [address] [email or web address] Historical LMR Provider 06/19/17 Ramos Mcgrath DO [address] [place] [address] [email or web address] .[facility] Primary Oncologist Hematology and Oncology 12/15/21 Sophia Alan CNP [address] [place] [address] [email or web address] Nurse Practitioner Oncology 02/12/22 06/18/22 Viki Melendrez, ADRY 30 [place] [address] [email or web address] Nurse Practitioner Oncology 03/06/22 documented as of this encounter Additional Source Comments The information contained in this document represents components of the legal health record. It is not the complete legal health record.[facility]
--- OUTSIDE RECORDS SUMMARY | 2025-06-21 19:31 | XMS_ITS | Encounter Summary ---
Author Organization [facility] Address [address] [place] [address] Phone Care Team Providers Care Certified Nuclear Medicine Technologist Name Role Phone Jeanie Mohan MD Unavailable [phone] Ramos Mcgrath DO Unavailable Carmita Santiago [facility] Primary Care Provider Viki Melendrez POWER TRANSMISSION ENGINEER Unavailable [phone] Farrah Camargo MD Primary Care Provider + Farrah Camargo MD Primary Care Provider + Farrah Camargo MD Primary Care Provider + Encounter Details Date Type Department Care Team (Late st Contact Info) Description 09/30/2022 Procedure Pass [facility] [address] [place] [address] Social History Tobacco Use Types Packs/Day Years [...] (Latest Contact Info) Description 06/30/2025 Procedure Pass [facility] Endoscopy Admitting Dept Virtual Department [address] [place] [address] 06/30/2025 2:00 PM EDT Hospital Encounter [facility] Endoscopy Admitting Dept Virtual Department [address] [place] [address] Jose Marshall MD [address] [address] [email or web address] 06/30/2025 2:00 PM EDT - 06/30/2025 2:30 PM EDT Surgery [facility] Endoscopy Admitting Dept Virtual Department [address] [place] [address] Jose Marshall MD [address] [place] [address] [email or web address] ESOPHAGOGASTRODUODENOSCOPY 07/08/2025 2:00 PM EST Office Visit [facility] 30 [place] [address] Ramos Mcgrath DO 30 [place] [address] [email or web address] .[email or web address].[facility] 07/11/2025 3:00 PM EST Office Visit [facility] 22 [facility] 3rd Floor, [address] [place] [address] Belkis Ratliff PA-C [address] [place] [address] [email or web address] 09/07/2025 2:15 PM EST Office Visit [facility] 10 [place] [address] Unknown, Unknown, Zabrina Mead, EVAN 10 [place] [address] Scheduled Procedures Name Priority Associated Diagnoses Date/Ti me ESOPHAGOGASTRODUODENOSCOPY Hx of colonic polyps 06/30/2025 2:00 PM EDT COLONOSCOPY Hx of colonic polyps 06/30/2025 2:00 PM EDT documented as of this encounter Visit Diagnoses Not on filedocumented in this encounter Additional Health Concerns Infection Onset Date Last Indicated Resolved Time CDiff-Risk 03/29/2025 03/29/2025 04/05/2025 1:21 AM EDT documented as of this encounter Care Teams Certified Nuclear Medicine Technologist Relationship Specialty Start Date End Date Carmita Santiago CNP [address] [place] [address] [email or web address] PCP - General Family Medicine 12/19/21 07/21/23 Farrah Camargo MD [address] [place] [address] [email or web address] PCP - General Family Medicine 07/22/23 12/29/23 Farrah Camargo MD [address] [place] [address] [email or web address] PCP - General Family Medicine 12/30/23 10/21/24 Farrah Camargo MD [address] [place] [address] [email or web address] PCP - General Family Medicine 10/22/24 Jeanie Mohan MD [address] [place] [address] Orthopedics & Sports Medicine, [facility] [place] [address] [email or web address] Historical LMR Provider 06/19/17 Ramos Mcgrath DO 30 [place] [address] [email or web address] Primary Oncologist Hematology and Oncology 12/15/21 Viki eMlendrez FNP 30 [place] [address] [email or web address] Nurse Practitioner Oncology 03/06/22 documented as of this encounter Additional Source Comments The information contained in this document represents components of the legal health record. It is not the complete legal health record.[facility]
--- OUTSIDE RECORDS SUMMARY | 2025-06-21 19:31 | XMS_ITS | Encounter Summary ---
Author Organization [facility] Address [address] [place] [address] Phone Care Team Providers Care [place] Farmer Name Role Phone Jeanie Mohan MD Unavailable [phone] Ramos Mcgrath DO Unavailable [phone] Viki Melendrez COSMETICS PRESSER Unavailable Farrah Camargo MD Primary Care Provider + Farrah Camargo MD Primary Care Provider + Encounter Details Date Type Department Care Team (Late st Contact Info) Description 08/02/2024 Procedure Pass [facility], Ct Scan - [address] [address] Social History Tobacco Use Types Packs/Day Years Used Date Smoking Tobacco: Former Cigarettes 0.5 50 0 05/16/1973 - 05/16/2023 Smokeless Tobacco: Never Alcohol Use Standard [...] as food, clothing, or medical care? No 12/30/2023 In the past 12 months have y ou been in a relationship with a person who hurts, threatens, or tries to control you? No 12/30/2023 Are you denied basic needs s uch as food, clothing, or medical care? No 12/30/2023 In the past 12 months have y ou been in a relationship with a person who hurts, threatens, or tries to control you? No 12/30/2023 Sex and Gender Information Value Date Recorded Sex Assigned at Male 09/08/2017 9:38 AM EST Legal Sex Male 9:59 PM EDT Gender Identity Male 09/08/2017 9:38 AM EST Sexual Orientation Straight 09/08/2017 9: 38 AM EST documented as of this encounter Plan of Treatment Upcoming Encounters Date Type Department Care Team (Latest Contact Info) Description 06/30/2025 Procedure Pass [facility] Endoscopy Admitting Dept Virtual Department [address] [place] [address] 06/30/2025 2:00 PM EDT Hospital Encounter [facility] Endoscopy Admitting Dept Virtual Department [address] [place] [address] Jose Marshall MD [address] [place] [address] [email or web address] 06/30/2025 2:00 PM EDT - 06/30/2025 2:30 PM EDT Surgery [facility] Endoscopy Admitting Dept Virtual Department [address] [place] [address] Jose Marshall MD [address] [place] [address] [email or web address] ESOPHAGOGASTRODUODENOSCOPY 07/08/2025 2:00 PM EST Office Visit [facility] at [address] [address] Ramos Mcgrath DO 30 [place] [address] [email or web address] .[email or web address].[facility] 07/11/2025 3:00 PM EST Office Visit [facility], [address] [place] [address] Belkis Ratliff PA-C 50 [place] [address] [email or web address] 09/07/2025 2:15 PM EST Office Visit [facility] 10 [place] [address] Unknown, Unknown, Zabrina Mead, LIABILITY CLAIMS EXAMINER 10 [place] [address] Scheduled Procedures Name Priority Associated Diagnoses Date/Ti me ESOPHAGOGASTRODUODENOSCOPY Hx of colonic polyps 06/30/2025 2:00 PM EDT COLONOSCOPY Hx of colonic polyps 06/30/2025 2:00 PM EDT documented as of this encounter Visit Diagnoses Not on filedocumented in this encounter Additional Health Concerns Infection Onset Date Last Indicated Resolved Time CDiff-Risk 03/29/2025 03/29/2025 04/05/2025 1:21 AM EDT documented as of this encounter Care Teams Dry[place] Farmer Relationship Specialty Start Date End Date Farrah Camargo MD 30 [place] [address] [email or web address] PCP - General Family Medicine 12/30/23 10/21/24 Farrah Camargo MD 70 [place] [address] [email or web address] PCP - General Family Medicine 10/22/24 Jeanie Mohan MD [address] [place] [address] Orthopedics & Sports Medicine, [place] [address] [email or web address] Historical LMR Provider 06/19/17 Ramos Mcgrath DO [address] [place] [address] [email or web address] FANG Primary Oncologist Hematology and Oncology 12/15/21 Viki Melendrez FNP 30 [place] [address] [email or web address] Nurse Practitioner Oncology 03/06/22 documented as of this encounter Additional Source Comments The information contained in this document represents components of the legal health record. It is not the complete legal health record.[facility]
--- OUTSIDE RECORDS SUMMARY | 2025-06-21 19:31 | XMS_ITS | Encounter Summary ---
Author Organization [facility] Address [address] [place] [address] Phone Care Team Providers Care Agricultural Lender Name Role Phone Jeanie Mohan MD Unavailable [phone] Ramos Mcgrath DO Unavailable Carmita Santiago HUMAN RESOURCES TEMP Primary Care Provider Viki Melendrez SERVICING MANAGER Unavailable Farrah Camargo MD Primary Care Provider + Farrah Camargo MD Primary Care Provider + Farrah Camargo MD Primary Care Provider + Encounter Details Date Type Department Care Team (Late st Contact Info) Description 07/18/2022 Procedure Pass [facility], Ct Scan - [address] [address] Social History Tobacco Use Types Packs/Day Years [...] Contact Info) Description 06/30/2025 Procedure [address] [facility] Endoscopy Admitting Dept Virtual Department [address] [place] [address] 06/30/2025 2:00 PM EDT Hospital Encounter [facility] Endoscopy Admitting Dept Virtual Department [address] [place] [address] Jose Marshall MD [address] [address] [email or web address] 06/30/2025 2:00 PM EDT - 06/30/2025 2:30 PM EDT Surgery [facility] Endoscopy Admitting Dept Virtual Department [address] [place] [address] Jose Marshall MD [address] [place] [address] [email or web address] ESOPHAGOGASTRODUODENOSCOPY 07/08/2025 2:00 PM EST Office Visit [facility] 30 [place] [address] Ramos Mcgrath DO 30 [place] [address] [email or web address] 07/11/2025 3:00 PM EST Office Visit [facility] [address] [place] [address] 3rd Floor, [address] [place] [address] Belkis Ratliff PA-C [address] [place] [address] [email or web address] 09/07/2025 2:15 PM EST Office Visit [facility] 10 [place] [address] Unknown, Unknown, MD Mckeon, Zabrina Alford, EVAN 10 [place] [address] Scheduled Procedures Name Priority Associated Diagnoses Date/Ti me ESOPHAGOGASTRODUODENOSCOPY Hx of colonic polyps 06/30/2025 2:00 PM EDT COLONOSCOPY Hx of colonic polyps 06/30/2025 2:00 PM EDT documented as of this encounter Visit Diagnoses Not on filedocumented in this encounter Additional Health Concerns Infection Onset Date Last Indicated Resolved Time CDiff-Risk 03/29/2025 03/29/2025 04/05/2025 1:21 AM EDT documented as of this encounter Care Teams Agricultural Lender Relationship Specialty Start Date End Date Carmita Santiago CNP 10 [place] [address] [email or web address] PCP - General Family Medicine 12/19/21 07/21/23 Farrah Camargo MD [address] [place] [address] [email or web address] PCP - General Family Medicine 07/22/23 12/29/23 Farrah Camargo MD 30 [place] [address] [email or web address] PCP - General Family Medicine 12/30/23 10/21/24 Farrah Camargo MD [address] [place] [address] [email or web address] PCP - General Family Medicine 10/22/24 Jeanie Mohan MD [address] [place] [address] Orthopedics & Sports Medicine, [facility] [place] [address] [email or web address] Historical LMR Provider 06/19/17 Ramos Mcgrath DO 30 [place] [address] [email or web address] Primary Oncologist Hematology and Oncology 12/15/21 Viki Melendrez FNP 30 [place] [address] [email or web address] Nurse Practitioner Oncology 03/06/22 documented as of this encounter Additional Source Comments The information contained in this document represents components of the legal health record. It is not the complete legal health record.[facility]
--- OUTSIDE RECORDS SUMMARY | 2025-06-21 19:31 | XMS_ITS | Encounter Summary ---
Author Organization [facility] Address [address] [place] [address] Phone Care Team Providers Care Corduroy Cutting Supervisor Name Role Phone Jeanie Mohan MD Unavailable [phone] Ramos Mcgrath DO Unavailable [phone] Carmita Santiago LAUNCHING PAD MECHANIC Primary Care Provider Viki Melendrez AIR CHIPPER Unavailable Farrah Camargo MD Primary Care Provider + Farrah Camargo MD Primary Care Provider + Farrah Camargo MD Primary Care Provider + Encounter Details Date Type Department Care Team (Late st Contact Info) Description 10/04/2022 Ancillary Orders [facility] Orthopedics & Sports Medicine [address] [place] [address] Jeanie Mohan MD [address] [place] [address] Orthopedics & Sports Medicine, [facility] [place], [place] [id number] Social History Tobacco Use Types Packs/Day Years [...] (Latest Contact Info) Description 06/30/2025 Procedure Pass [facility] Endoscopy Admitting Dept Virtual Department [address] [place] [address] 06/30/2025 2:00 PM EDT Hospital Encounter [facility] Endoscopy Admitting Dept Virtual Department [address] [place] [address] Jose Marshall MD [address] [address] [email or web address] 06/30/2025 2:00 PM EDT - 06/30/2025 2:30 PM EDT Surgery [facility] Endoscopy Admitting Dept Virtual Department [address] [place] [address] Jose Marshall MD [address] [address] [email or web address] ESOPHAGOGASTRODUODENOSCOPY 07/08/2025 2:00 PM EST Office Visit [facility] 30 [place] [address] Ramos Mcgrath DO 30 [place] [address] [email or web address] 07/11/2025 3:00 PM EST Office Visit [facility] [address] [place] [address] 3rd Floor, [address] [place] [address] Belkis Ratliff PA-C 50 [place] [address] [email or web address] 09/07/2025 2:15 PM EST Office Visit [facility] 10 [place] [address] Unknown, Unknown, Zabrina Mead NP 10 [place] [address] Scheduled Procedures Name Priority Associated Diagnoses Date/Ti me ESOPHAGOGASTRODUODENOSCOPY Hx of colonic polyps 06/30/2025 2:00 PM EDT COLONOSCOPY Hx of colonic polyps 06/30/2025 2:00 PM EDT documented as of this encounter Visit Diagnoses Not on filedocumented in this encounter Additional Health Concerns Infection Onset Date Last Indicated Resolved Time CDiff-Risk 03/29/2025 03/29/2025 04/05/2025 1:21 AM EDT documented as of this encounter Care Teams Corduroy Cutting Supervisor Relationship Specialty Start Date End Date Carmita Santiago CNP [address] [place] [address] [email or web address] PCP - General Family Medicine 12/19/21 07/21/23 Farrah Camargo MD 30 [place] [address] [email or web address] PCP - General Family Medicine 07/22/23 12/29/23 Farrah Camargo MD 30 [place] [address] [email or web address] PCP - General Family Medicine 12/30/23 10/21/24 Farrah Camargo MD [address] [place] [address] [email or web address] PCP - General Family Medicine 10/22/24 Jeanie Mohan MD [address] [place] [address] [facility] [place] [address] [email or web address] Historical LMR Provider 06/19/17 Ramos Mcgrath DO 30 [place] [address] [email or web address] Primary Oncologist Hematology and Oncology 12/15/21 Viki Melendrez FNP 30 [place] [address] [email or web address] Nurse Practitioner Oncology 03/06/22 documented as of this encounter Additional Source Comments The information contained in this document represents components of the legal health record. It is not the complete legal health record.[facility]
--- OUTSIDE RECORDS SUMMARY | 2025-06-21 19:31 | XMS_ITS | Encounter Summary ---
Author Organization [facility] Address [address] [place] [address] Phone Care Team Providers Care Moto Mix Operator Name Role Phone Jeanie Mohan MD Unavailable [phone] Ramos Mcgrath DO Unavailable Carmita Santiago CORK FLOOR INSTALLER Primary Care Provider Viki Melendrez DOLLY DRIVER Unavailable Farrah Camargo MD Primary Care Provider + Farrah Camargo MD Primary Care Provider + Farrah Camargo MD Primary Care Provider + Encounter Details Date Type Department Care Team (Late st Contact Info) Description 06/20/2022 Procedure Pass [facility], Ct Scan - [address] [address] Social History Tobacco Use Types Packs/Day Years [...] [facility]ICAL [facility]ENTER Endoscopy Admitting Dept Virtual Department [address] [place] [address] 06/30/2025 2:00 PM EDT Hospital Encounter [facility] Endoscopy Admitting Dept Virtual Department [address] [place] [address] Jose Marshall MD [address] [address] [email or web address] 06/30/2025 2:00 PM EDT - 06/30/2025 2:30 PM EDT Surgery [facility] Endoscopy Admitting Dept Virtual Department [address] [place] [address] Jose Marshall MD [address] [place] [address] [email or web address] ESOPHAGOGASTRODUODENOSCOPY 07/08/2025 2:00 PM EST Office Visit [facility] 30 [place] [address] Ramos Mcgrath DO 30 [place] [address] [email or web address] 07/11/2025 3:00 PM EST Office Visit [facility] [address] [place] [address] 3rd Floor, [address] [place] [address] Belkis Ratliff PA-C [address] [place] [address] [email or web address] 09/07/2025 2:15 PM EST Office Visit [facility] 10 [place] [address] Unknown, Unknown, MD Mckeon, Zabrina Alford, EVAN 10 [place] [address] Scheduled Procedures Name Priority Associated Diagnoses Date/Ti me ESOPHAGOGASTRODUODENOSCOPY Hx of colonic polyps 06/30/2025 2:00 PM EDT COLONOSCOPY Hx of colonic polyps 06/30/2025 2:00 PM EDT documented as of this encounter Visit Diagnoses Not on filedocumented in this encounter Additional Health Concerns Infection Onset Date Last Indicated Resolved Time CDiff-Risk 03/29/2025 03/29/2025 04/05/2025 1:21 AM EDT documented as of this encounter Care Teams Moto Mix Operator Relationship Specialty Start Date End Date Carmita Santiago CNP 10 [place] [address] [email or web address] PCP - General Family Medicine 12/19/21 07/21/23 Farrah Camargo MD [address] [place] [address] [email or web address] PCP - General Family Medicine 07/22/23 12/29/23 Farrah Camargo MD 30 [place] [address] [email or web address] PCP - General Family Medicine 12/30/23 10/21/24 Farrah Camargo MD [address] [place] [address] [email or web address] PCP - General Family Medicine 10/22/24 Jeanie Mohan MD [address] [place] [address] Orthopedics & Sports Medicine, [place] [address] [email or web address] Historical LMR Provider 06/19/17 Ramos Mcgrath DO 30 [place] [address] [email or web address] Primary Oncologist Hematology and Oncology 12/15/21 Viki Melendrez FNP 30 [place] [address] [email or web address] Nurse Practitioner Oncology 03/06/22 documented as of this encounter Additional Source Comments The information contained in this document represents components of the legal health record. It is not the complete legal health record.[facility]
--- OUTSIDE RECORDS SUMMARY | 2025-06-21 19:31 | XMS_ITS | Encounter Summary ---
Author Organization [facility] Address [address] [place] [address] [place] [address] Phone Care Team Providers Care Production Broacher Name Role Phone Jeanie Mohan MD Unavailable Ramos Mcgrath DO Unavailable Viki Melendrez FURNITURE AND BEDDING INSPECTOR Unavailable [phone] Farrah Camargo MD Primary Care Provider + Encounter Details Date Type Department Care Team (Late st Contact Info) Description 10/22/2024 Procedure Pass [facility], Ct Scan - [address] [address] Social History Tobacco Use Types Packs/Day Years [...] Author No Risk Indicated 10/22/2024 8:26 AM Elieezr Mahajan RN * [place] Suicide Severity Rating Scale (Screener/Recent Self-Report) Question [...] Pass [facility] Endoscopy Admitting Dept Virtual Department [address] [place] [address] 06/30/2025 2:00 PM EDT Hospital Encounter [facility] Endoscopy Admitting Dept Virtual Department 30 [place] [address] Jose Marshall MD [address] [place] [address] [email or web address] 06/30/2025 2:00 PM EDT - 06/30/2025 2:30 PM EDT Surgery [facility] Endoscopy Admitting Dept Virtual Department 30 [place] [address] Jose Marshall MD [address] [place] [address] [email or web address] ESOPHAGOGASTRODUODENOSCOPY 07/08/2025 2:00 PM EST Office Visit [facility] [place] 30 [place] [address] Ramos Mcgrath DO 30 [place] [address] [email or web address] 07/11/2025 3:00 PM EST Office Visit [facility] [address] [facility] 3rd Floor, [address] [place] [address] Belkis Ratliff PA-C [address] [place] [address] [email or web address] 09/07/2025 2:15 PM EST Office Visit [facility] [address] [place] [address] Unknown, Unknown, Zabrina Mead, EVAN [address] [place] [address] Scheduled Procedures Name Priority Associated Diagnoses Date/Ti me ESOPHAGOGASTRODUODENOSCOPY Hx of colonic polyps 06/30/2025 2:00 PM EDT COLONOSCOPY Hx of colonic polyps 06/30/2025 2:00 PM EDT documented as of this encounter Visit Diagnoses Not on filedocumented in this encounter Additional Health Concerns Infection Onset Date Last Indicated Resolved Time CDiff-Risk 03/29/2025 03/29/2025 04/05/2025 1:21 AM EDT documented as of this encounter Care Teams Production Broacher Relationship Specialty Start Date End Date Farrah Camargo MD 70 [place] [address] [email or web address]) PCP - General Family Medicine 10/22/24 Jeanie Mohan MD 4 [facility] Orthopedics & Sports Medicine, [facility] [place] [address] [email or web address] Historical LMR Provider 06/19/17 Ramos Mcgrath DO 30 [place] [address] [email or web address] Primary Oncologist Hematology and Oncology 12/15/21 Viki Melendrez FNP 30 [place] [address] [email or web address] Nurse Practitioner Oncology 03/06/22 documented as of this encounter Additional Source Comments The information contained in this document represents components of the legal health record. It is not the complete legal health record.[facility]
--- OUTSIDE RECORDS SUMMARY | 2025-06-21 19:31 | XMS_ITS | Encounter Summary ---
Author Organization [facility] Address [address] [place] [address] Phone Care Team Providers Care Plant Maintenance Supervisor Name Role Phone Jeanie Mohan MD Unavailable Ramos Mcgrath DO Unavailable Carmita Santiago [employer] NURSE Primary Care Provider Viki Melendrez PUBLIC RELATIONS STUDIES DIRECTOR Unavailable Farrah Camargo MD Primary Care Provider + Farrah Camargo MD Primary Care Provider + Farrah Camargo MD Primary Care Provider + Encounter Details Date Type Department Care Team (Late st Contact Info) Description 10/04/2022 Ancillary Orders [address] [address] Jeanie Mohan MD [address] [place] [address] Orthopedics & Sports Medicine, [place], [place] [phone] [email or web address] Bilateral shoulder pain, unspecified chronicity Social History Tobacco Use Types Packs/Day Years [...] Pass [facility] Endoscopy Admitting Dept Virtual Department [address] [place] [address] 06/30/2025 2:00 PM EDT Hospital Encounter [facility] Endoscopy Admitting Dept Virtual Department [address] [place] [address] Jose Marshall MD [address] [place] [address] [email or web address] 06/30/2025 2:00 PM EDT - 06/30/2025 2:30 PM EDT Surgery [facility] Endoscopy Admitting Dept Virtual Department [address] [place] [address] Jose Marshall MD [address] [place] [address] [email or web address] ESOPHAGOGASTRODUODENOSCOPY 07/08/2025 2:00 PM EST Office Visit [facility] at [address] [address] Ramos Mcgrath DO 30 [place] [address] [email or web address] 07/11/2025 3:00 PM EST Office Visit [facility] [address] [place] [address] 3rd Floor, [address] [place] [address] Belkis Ratliff PA-C [address] [place] [address] [email or web address] 09/07/2025 2:15 PM EST Office Visit [facility] 10 [place] [address] Unknown, Unknown, Zabrina Mead, EVAN 10 [place] [address] Pending Results Name Type Priority Associated Diagnoses Date /Time FL Guidance Needle Placement Non-Spine Imaging Routine Bilateral shoulder pain, unspecified chronicity 10/08/2022 9:51 AM EST Scheduled Orders Name Type Priority Associated Diagnoses Orde r Schedule FL Guidance Needle Placement Non-Spine Imaging Routine Bilateral shoulder pain, unspecified chronicity 1 Occurrences starting 10/04/2022 until 01/01/2023 Scheduled Procedures Name Priority Associated Diagnoses Date/Ti me ESOPHAGOGASTRODUODENOSCOPY Hx of colonic polyps 06/30/2025 2:00 PM EDT COLONOSCOPY Hx of colonic polyps 06/30/2025 2:00 PM EDT documented as of this encounter Visit Diagnoses Diagnosis Bilateral shoulder pain, unspecified chronicity Hx of colonic polyps Personal history of colonic polyps documented in this encounter Additional Health Concerns Infection Onset Date Last Indicated Resolved Time CDiff-Risk 03/29/2025 03/29/2025 04/05/2025 1:21 AM EDT documented as of this encounter Care Teams Plant Maintenance Supervisor Relationship Specialty Start Date End Date Carmita Santiago CNP 10 [place] [address] PCP - General Family Medicine 12/19/21 07/21/23 Farrah Camargo MD [address] [place] [address] [email or web address] PCP - General Family Medicine 07/22/23 12/29/23 Farrah Camargo MD [address] [place] [address] [email or web address] PCP - General Family Medicine 12/30/23 10/21/24 Farrah Camargo MD [address] [place] [address] [email or web address] PCP - General Family Medicine 10/22/24 Jeanie Mohan MD [address] [place] [address] Orthopedics & Sports Medicine, [facility] [place] [address] [email or web address] Historical LMR Provider 06/19/17 Ramos Mcgrath DO [address] [place] [address] [email or web address] Primary Oncologist Hematology and Oncology 12/15/21 Viki Melendrez FNP 30 [place] [address] [email or web address] Nurse Practitioner Oncology 03/06/22 documented as of this encounter Additional Source Comments The information contained in this document represents components of the legal health record. It is not the complete legal health record.[facility]
--- OUTSIDE RECORDS SUMMARY | 2025-06-21 19:32 | XMS_ITS | Encounter Summary ---
Author Organization [facility] Address [address] [place] [address] Phone Care Team Providers Care Floor Helper Name Role Phone Jesse Larson MD Unavailable [phone] Reji Nam MD Unavailable Jeanie Mohan MD Unavailable Anthony Real MD Primary Care Provider Ramos Mcgrath DO Unavailable [phone] Carmita Santiago PACKING ROOM INSPECTOR Primary Care Provider Sophia Alan PACKING ROOM INSPECTOR Unavailable Viki Melendrez ASSISTANT GUEST SERVICES MANAGER Unavailable Farrah Camargo MD Primary Care Provider + Farrah Camargo MD Primary Care Provider + Farrah Camargo MD Primary Care Provider + Encounter Details Date Type Department Care Team (Late st Contact Info) Description 10/05/2019 Procedure Pass [facility] Endoscopy Admitting Dept Virtual Department 30 [place], [place] [phone] Social History Tobacco Use Types Packs/Day Years Used Date Smoking Tobacco: Every Day Cigarettes Smokeless Tobacco: Never Comments:On Ch[employer]ix Alcohol Use Standard Drinks/Week Comments Yes 1 (1 standard drink = 0.6 oz pur e alcohol) Sex and Gender Information Value Date [...] Pass [facility] Endoscopy Admitting Dept Virtual Department [address] [place] [address] 06/30/2025 2:00 PM EDT Hospital Encounter [facility] Endoscopy Admitting Dept Virtual Department [address] [place] [address] Jose Marshall MD [address] [place] [address] [email or web address] 06/30/2025 2:00 PM EDT - 06/30/2025 2:30 PM EDT Surgery [facility] Endoscopy Admitting Dept Virtual Department [address] [place] [address] Jose Marshall MD [address] [place] [address] [email or web address] ESOPHAGOGASTRODUODENOSCOPY 07/08/2025 2:00 PM EST Office [facility] at [address] [address] Ramos Mcgrath DO 30 [place] [address] [email or web address] 07/11/2025 3:00 PM EST Office Visit [facility] [address] [place] [address] 3rd Floor, [address] [place] [address] Belkis Ratliff PA-C [address] [place] [address] [email or web address] 09/07/2025 2:15 PM EST Office Visit [facility] 10 [place] [address] Unknown, Unknown, Zabrina Mead, STAND UP FORKLIFT OPERATOR 10 [place] [address] Scheduled Procedures Name Priority Associated Diagnoses Date/Ti in ESOPHAGOGASTRODUODENOSCOPY Hx of colonic polyps 06/30/2025 2:00 PM EDT COLONOSCOPY Hx of colonic polyps 06/30/2025 2:00 PM EDT documented as of this encounter Visit Diagnoses Not on filedocumented in this encounter Additional Health Concerns Infection Onset Date Last Indicated Resolved Time CDiff-Risk 03/29/2025 03/29/2025 04/05/2025 1:21 AM EDT documented as of this encounter Care Teams Floor Helper Relationship Specialty Start Date End Date Anthony Real MD [address] [place] [phone] [email or web address] PCP - General Family Medicine 10/05/19 12/18/21 Carmita Santiago CNP [address] [place] [address] [email or web address] PCP - General Family Medicine 12/19/21 07/21/23 Farrah Camargo MD [address] [place] [address] [email or web address] PCP - General Family Medicine 07/22/23 12/29/23 Farrah Camargo MD [address] [place] [address] [email or web address] PCP - General Family Medicine 12/30/23 10/21/24 Farrah Camargo MD 70 [place] [address] [email or web address] PCP - General Family Medicine 10/22/24 Jesse Larson MD 70 [place] [address] [email or web address] Historical LMR Provider 06/19/17 2 Reji Nam MD [address] [place] [address] Historical LMR Provider 06/19/17 Jeanie Mohan MD [address] [place] [address] Orthopedics & Sports Medicine, [place] [address] [email or web address] Historical LMR Provider 06/19/17 Ramos Mcgrath DO [address] [place] [address] [email or web address] .[email or web address] Primary Oncologist Hematology and Oncology 12/15/21 Sophia Alan CNP [address] [place] [address] [email or web address] Nurse Practitioner Oncology 02/12/22 06/18/22 Viki Melendrez FNP [address] [place] [address] [email or web address] Nurse Practitioner Oncology 03/06/22 documented as of this encounter Additional Source Comments The information contained in this document represents components of the legal health record. It is not the complete legal health record.[facility]
--- OUTSIDE RECORDS SUMMARY | 2025-06-21 19:32 | XMS_ITS | Encounter Summary ---
Author Organization [facility] Address [address] [place] [address] Phone Care Team Providers Care Respiratory Care Practitioner Name Role Phone Jeanie Mohan MD Unavailable [phone] Ramos Mcgrath DO Unavailable Carmita Santiago HARDENING MACHINE OPERATOR HELPER Primary Care Provider Viki Melendrez BIRD KEEPER Unavailable Farrah Camargo MD Primary Care Provider + Farrah Camargo MD Primary Care Provider + Farrah Camargo MD Primary Care Provider + Encounter Details Date Type Department Care Team (Late st Contact Info) Description 03/03/2023 Procedure Pass [facility], Ct Scan - [address] [address] Social History Tobacco Use Types Packs/Day Years Used Date Smoking Tobacco: Every Day Cigarettes 0.5 50 Smokeless Tobacco: Never Comments:Down to 3 cigarette s a day and using nicotine lozenges. Alcohol Use Standard Drinks/Week Comments Yes 4 (1 standard drink = 0.6 oz [...] with a working camera? Not on file Sex and Gender Information Value Date Recorded Sex Assigned at Male 09/08/2017 9:38 AM EST Legal Sex Male 9:59 PM EDT Gender Identity Male 09/08/2017 9:38 AM EST Sexual Orientation Straight 09/08/2017 9: 38 AM EST documented as of this encounter Plan of Treatment Upcoming Encounters Date Type Department Care Team (Latest Contact Info) Description 06/30/2025 Procedure Pass [facility] Endoscopy Admitting Dept Virtual Department [address] [place] [address] 06/30/2025 2:00 PM EDT Hospital Encounter [facility] Endoscopy Admitting Dept Virtual Department [address] [place] [address] Jose Marshall MD [address] [place] [address] [email or web address] 06/30/2025 2:00 PM EDT - 06/30/2025 2:30 PM EDT Surgery [facility] Endoscopy Admitting Dept Virtual Department [address] [place] [address] Jose Marshall MD [address] [place] [address] [email or web address] ESOPHAGOGASTRODUODENOSCOPY 07/08/2025 2:00 PM EST Office Visit [facility] [place] [address] [place] [address] Ramos Mcgrath DO 30 [place] [address] [email or web address] 07/11/2025 3:00 PM EST Office Visit [facility] [address] 3rd Floor, [address] [place] [address] Belkis Ratliff PA-C [address] [place] [address] [email or web address] 09/07/2025 2:15 PM EST Office Visit [facility] 10 [place] [address] Unknown, Unknown, Zabrina Mead, EVAN 10 [place] [address] Scheduled Procedures Name Priority Associated Diagnoses Date/Ti me ESOPHAGOGASTRODUODENOSCOPY Hx of colonic polyps 06/30/2025 2:00 PM EDT COLONOSCOPY Hx of colonic polyps 06/30/2025 2:00 PM EDT documented as of this encounter Visit Diagnoses Not on filedocumented in this encounter Additional Health Concerns Infection Onset Date Last Indicated Resolved Time CDiff-Risk 03/29/2025 03/29/2025 04/05/2025 1:21 AM EDT documented as of this encounter Care Teams Respiratory Care Practitioner Relationship Specialty Start Date End Date Carmita Santiago CNP [address] [place] [address] [email or web address] PCP - General Family Medicine 12/19/21 07/21/23 Farrah Camargo MD [address] [place] [address] [email or web address] PCP - General Family Medicine 07/22/23 12/29/23 Farrah Camargo MD [address] [place] [address] [email or web address] PCP - General Family Medicine 12/30/23 10/21/24 Farrah Camargo MD 70 [place] [address] [email or web address] PCP - General Family Medicine 10/22/24 Jeanie Mohan MD 4 [facility] Orthopedics & Sports Medicine, [facility] [place] [address] [email or web address] Historical LMR Provider 06/19/17 Ramos Mcgrath DO [address] [place] [address] [email or web address] Primary Oncologist Hematology and Oncology 12/15/21 Viki Melendrez FNP [address] [place] [address] [email or web address] Nurse Practitioner Oncology 03/06/22 documented as of this encounter Additional Source Comments The information contained in this document represents components of the legal health record. It is not the complete legal health record.[facility]
--- OUTSIDE RECORDS SUMMARY | 2025-06-21 19:32 | XMS_ITS | Encounter Summary ---
Author Organization [facility] Address [address] [place] [address] Phone Care Team Providers Care Rag Room Supervisor Name Role Phone Jeanie Mohan MD Unavailable Ramos Mcgrath DO Unavailable [phone] Viki Melendrez REVERSE LOGISTICS ANALYST Unavailable Farrah Camargo MD Primary Care Provider + Farrah Camargo MD Primary Care Provider + Encounter Details Date Type Department Care Team (Late st Contact Info) Description 12/30/2023 Procedure Pass [facility], Ct Scan - [address] [address] Social History Tobacco Use Types Packs/Day Years [...] Date of Assessment Author No Risk Indicated 12/30/2023 10:57 PM EDT Swati Armenta RN * [place] Suicide Severity Rating Scale (Screener/Recent Self-Report) Question Answer Date of Assessment Author 1. Wish to be (Past 1 Month) No 024 10:57 PM EDT Swati Armenta, RN 2. Non-Specific Active Suici greyson Thoughts (Past 1 Month) No 12/30/2023 10:57 PM EDT Swati Armenta, RN 6. Suicidal Behavior (Lifetime) No 10:57 PM EDT Swati Armenta, RN documented as of this encounter Plan of Treatment Upcoming Encounters Date Type Department Care Team (Latest Contact Info) Description 06/30/2025 Procedure Pass [facility] Endoscopy Admitting Dept Virtual Department [address] [place] [address] 06/30/2025 2:00 PM EDT Hospital Encounter [facility] Endoscopy Admitting Dept Virtual Department [address] [place] [address] Jose Marshall MD [address] [place] [address] [email or web address] 06/30/2025 2:00 PM EDT - 06/30/2025 2:30 PM EDT Surgery [facility] Endoscopy Admitting Dept Virtual Department 30 [place] [address] Jose Marshall MD [address] [place] [address] [email or web address] ESOPHAGOGASTRODUODENOSCOPY 07/08/2025 2:00 PM EST Office Visit [facility] [place] 30 [place] [address] Ramos Mcgrath DO 30 [place] [address] [email or web address] 07/11/2025 3:00 PM EST Office Visit [facility] [address] [facility] 3rd Floor, [address] [place] [address] Belkis Ratliff PA-C [address] [place] [address] [email or web address] 09/07/2025 2:15 PM EST Office Visit [facility] [address] [place] [address] Unknown, Unknown, Zabrina Mead, EVAN [address] [place] [address] Scheduled Procedures Name Priority Associated Diagnoses Date/Ti me ESOPHAGOGASTRODUODENOSCOPY Hx of colonic polyps 06/30/2025 2:00 PM EDT COLONOSCOPY Hx of colonic polyps 06/30/2025 2:00 PM EDT documented as of this encounter Visit Diagnoses Not on filedocumented in this encounter Additional Health Concerns Infection Onset Date Last Indicated Resolved Time CDiff-Risk 03/29/2025 03/29/2025 04/05/2025 1:21 AM EDT documented as of this encounter Care Teams Rag Room Supervisor Relationship Specialty Start Date End Date Farrah Camargo MD 30 [place] [address] [email or web address] PCP - General Family Medicine 12/30/23 10/21/24 Farrah Camargo MD [address] [place] [address] [email or web address] PCP - General Family Medicine 10/22/24 Jeanie Mohan MD [address] [place] [address] Orthopedics & Sports Medicine, [place] [address] [email or web address] Historical LMR Provider 06/19/17 Ramos Mcgrath DO 30 [place] [address] [email or web address] Primary Oncologist Hematology and Oncology 12/15/21 Viki Melendrez FNP 30 [place] [address] [email or web address] Nurse Practitioner Oncology 03/06/22 documented as of this encounter Additional Source Comments The information contained in this document represents components of the legal health record. It is not the complete legal health record.[facility]
--- OUTSIDE RECORDS SUMMARY | 2025-06-21 19:32 | XMS_ITS | Encounter Summary ---
Author Organization [facility] Address [address] [place] [address] Phone Care Team Providers Care Management Services Technician Name Role Phone Jeanie Mohan MD Unavailable [phone] Ramos Mcgrath DO Unavailable [phone] Viki Melendrez COOLING ROOM ATTENDANT Unavailable Farrah Camargo MD Primary Care Provider + Farrah Camargo MD Primary Care Provider + Farrah Camargo MD Primary Care Provider + Encounter Details Date Type Department Care Team (Late st Contact Info) Description 12/09/2023 Procedure Pass [facility] 30 [place] [address] Social History Tobacco Use Types Packs/Day Years [...] Pass [facility] Endoscopy Admitting Dept Virtual Department [address] [place] [address] 06/30/2025 2:00 PM EDT Hospital Encounter [facility] Endoscopy Admitting Dept Virtual Department [address] [place] [address] Jose Marshall MD [address] [place] [address] [email or web address] 06/30/2025 2:00 PM EDT - 06/30/2025 2:30 PM EDT Surgery [facility] Endoscopy Admitting Dept Virtual Department [address] [place] [address] Jose Marshall MD [address] [place] [address] [email or web address] ESOPHAGOGASTRODUODENOSCOPY 07/08/2025 2:00 PM EST Office Visit [facility] at [address] [address] Ramos Mcgrath DO 30 [place] [address] [email or web address] .[email or web address] 07/11/2025 3:00 PM EST Office Visit [facility] [address] [place] [address] 3rd Floor, [address] [place] [address] Belkis Ratliff PA-C [address] [place] [address] [email or web address] 09/07/2025 2:15 PM EST Office Visit [facility] 10 [place] [address] Unknown, Unknown, Zabrina Mead, GRADUATION COACH 10 [place] [address] Scheduled Procedures Name Priority Associated Diagnoses Date/Ti me ESOPHAGOGASTRODUODENOSCOPY Hx of colonic polyps 06/30/2025 2:00 PM EDT COLONOSCOPY Hx of colonic polyps 06/30/2025 2:00 PM EDT documented as of this encounter Visit Diagnoses Not on filedocumented in this encounter Additional Health Concerns Infection Onset Date Last Indicated Resolved Time CDiff-Risk 03/29/2025 03/29/2025 04/05/2025 1:21 AM EDT documented as of this encounter Care Teams Management Services Technician Relationship Specialty Start Date End Date Farrah Camargo MD 30 [place] [address] [email or web address] PCP - General Family Medicine 07/22/23 12/29/23 Farrah Camargo MD [address] [place] [address] [email or web address] PCP - General Family Medicine 12/30/23 10/21/24 Farrah Camargo MD 70 [place] [address] [email or web address] PCP - General Family Medicine 10/22/24 Jeanie Mohan MD [address] [place] [address] Orthopedics & Sports Medicine, [facility] [place] [address] [email or web address] Historical LMR Provider 06/19/17 Ramos Mcgrath DO [address] [place] [address] [email or web address] Primary Oncologist Hematology and Oncology 12/15/21 Viki Melendrez FNP [address] [place] [address] [email or web address] Nurse Practitioner Oncology 03/06/22 documented as of this encounter Additional Source Comments The information contained in this document represents components of the legal health record. It is not the complete legal health record.[facility]
--- OUTSIDE RECORDS SUMMARY | 2025-06-21 19:32 | XMS_ITS | Encounter Summary ---
Author Organization [facility] Address [address] [place] [address] Phone Care Team Providers Care Bit Sharpener Name Role Phone Jeanie Mohan MD Unavailable Ramos Mcgrath DO Unavailable Carmita Santiago STEAM BOX TENDER Primary Care Provider Viki Melendrez REGISTRATION SPECIALIST Unavailable Farrah Camargo MD Primary Care Provider + Farrah Camargo MD Primary Care Provider + Farrah Camargo MD Primary Care Provider + Encounter Details Date Type Department Care Team (Late st Contact Info) Description 01/19/2023 Procedure Pass [facility], Ct Scan - [address] [address] Social History Tobacco Use Types Packs/Day Years [...] on file 12/27/2022 No 12/27/2022 No 12/27/2022 Sex and Gender Information Value Date Recorded [...] Pass [facility] Endoscopy Admitting Dept Virtual Department [address] [place] [address] 06/30/2025 2:00 PM EDT Hospital Encounter [facility] Endoscopy Admitting Dept Virtual Department [address] [place] [address] Jose Marshall MD [address] [place] [address] [email or web address] 06/30/2025 2:00 PM EDT - 06/30/2025 2:30 PM EDT Surgery [facility] Endoscopy Admitting Dept Virtual Department [address] [place] [address] Jose Marshall MD [address] [place] [address] [email or web address] ESOPHAGOGASTRODUODENOSCOPY 07/08/2025 2:00 PM EST Office Visit [facility] 30 [place] [address] Ramos Mcgrath DO 30 [place] [address] [email or web address] 07/11/2025 3:00 PM EST Office Visit [facility] [address] [place] [address] 3rd Floor, [address] [place] [address] Belkis Ratliff PA-C [address] [place] [address] [email or web address] 09/07/2025 2:15 PM EST Office Visit [facility] 10 [place] [address] Unknown, Unknown, Zabrina Mead, EVAN 10 [place] [address] Scheduled Procedures Name Priority Associated Diagnoses Date/Ti me ESOPHAGOGASTRODUODENOSCOPY Hx of colonic polyps 06/30/2025 2:00 PM EDT COLONOSCOPY Hx of colonic polyps 06/30/2025 2:00 PM EDT documented as of this encounter Visit Diagnoses Not on filedocumented in this encounter Additional Health Concerns Infection Onset Date Last Indicated Resolved Time CDiff-Risk 03/29/2025 03/29/2025 04/05/2025 1:21 AM EDT documented as of this encounter Care Teams Bit Sharpener Relationship Specialty Start Date End Date Carmita Santiago CNP [address] [place] [address] [email or web address] PCP - General Family Medicine 12/19/21 07/21/23 Farrah Camargo MD 30 [place] [address] [email or web address] PCP - General Family Medicine 07/22/23 12/29/23 Farrah Camargo MD 30 [place] [address] [email or web address] PCP - General Family Medicine 12/30/23 10/21/24 Farrah Camargo MD [address] [place] [address] [email or web address] PCP - General Family Medicine 10/22/24 Jeanie Mohan MD [address] [place] [address] Orthopedics & Sports Medicine, [facility] [place] [address] [email or web address] Historical LMR Provider 06/19/17 Ramos Mcgrath DO 30 [place] [address] [email or web address] Primary Oncologist Hematology and Oncology 12/15/21 Viki Melendrez FNP [address] [place] [address] [email or web address] Nurse Practitioner Oncology 03/06/22 documented as of this encounter Additional Source Comments The information contained in this document represents components of the legal health record. It is not the complete legal health record.[facility]
--- OUTSIDE RECORDS SUMMARY | 2025-06-21 19:32 | XMS_ITS | Encounter Summary ---
Author Organization [facility] Address [address] [place] [address] Phone Care Team Providers Care Harp Repairer Name Role Phone Jesse Larson MD Unavailable [phone] Reji Nam MD Unavailable Jeanie Mohan MD Unavailable Anthony Real MD Primary Care Provider Ramos Mcgrath DO Unavailable [phone] Carmita Santiago HEALTH SCIENCES PROGRAM COORDINATOR Primary Care Provider Sophia Alan HEALTH SCIENCES PROGRAM COORDINATOR Unavailable Viki Melendrez TOOL GRINDER OPERATOR SURFACE Unavailable Farrah Camargo MD Primary Care Provider + Farrah Camargo MD Primary Care Provider + Farrah Camargo MD Primary Care Provider + Encounter Details Date Type Department Care Team (Late st Contact Info) Description 08/06/2021 Procedure Pass [facility], Ct Scan - [address] [address] Social History Tobacco Use Types Packs/Day Years [...] Date of Assessment Author No Risk Indicated 08/06/2021 3:45 PM Thien Pabon RN * [place] Suicide Severity Rating Scale (Screener/Recent Self-Report) Question Answer Date of Assessment Author 1. Wish to be (Past 1 Month) No 021 3:45 PM Vivien Pabon RN 2. Non-Specific Active Suici greyson Thoughts (Past 1 Month) No 08/06/2021 3:45 PM Vivien Pabon RN 6. Suicidal Behavior (Lifetime) No 3:45 PM Vivien Pabon RN documented as of this encounter Plan of Treatment Upcoming Encounters Date Type Department Care Team (Latest Contact Info) Description 06/30/2025 Procedure Pass [facility] Endoscopy Admitting Dept Virtual Department [address] [place] [address] 06/30/2025 2:00 PM EDT Hospital Encounter [facility] Endoscopy Admitting Dept Virtual Department [address] [place] [address] Jose Marshall MD [address] [place] [address] [email or web address] 06/30/2025 2:00 PM EDT - 06/30/2025 2:30 PM EDT Surgery [facility] Endoscopy Admitting Dept Virtual Department [address] [place] [address] Jose Marshall MD [address] [place] [address] [email or web address] ESOPHAGOGASTRODUODENOSCOPY 07/08/2025 2:00 PM EST Office Visit [facility] [place] 30 [place] [address] Ramos Mcgrath DO 30 [place] [address] [email or web address].[facility] 07/11/2025 3:00 PM EST Office Visit [facility] 3rd Floor, [address] [place] [address] Belkis Ratliff PA-C 50 [place] [address] [email or web address] 09/07/2025 2:15 PM EST Office Visit [facility] [address] [place] [address] Unknown, Unknown, Zabrina Mead, EVAN [address] [place] [address] Scheduled Procedures Name Priority Associated Diagnoses Date/Ti me ESOPHAGOGASTRODUODENOSCOPY Hx of colonic polyps 06/30/2025 2:00 PM EDT COLONOSCOPY Hx of colonic polyps 06/30/2025 2:00 PM EDT documented as of this encounter Visit Diagnoses Not on filedocumented in this encounter Additional Health Concerns Infection Onset Date Last Indicated Resolved Time CDiff-Risk 03/29/2025 03/29/2025 04/05/2025 1:21 AM EDT documented as of this encounter Care Teams Harp Repairer Relationship Specialty Start Date End Date Anthony Real MD [address] [facility] [address] [place] [address] [email or web address] PCP - General Family Medicine 10/05/19 12/18/21 Carmita Santiago CNP [address] [place] [address] [email or web address] PCP - General Family Medicine 12/19/21 07/21/23 Farrah Camargo MD 30 [place] [address] [email or web address] PCP - General Family Medicine 07/22/23 12/29/23 Farrah Camargo MD [address] [place] [address] [email or web address] PCP - General Family Medicine 12/30/23 10/21/24 Farrah Camargo MD [address] [place] [address] [email or web address] PCP - General Family Medicine 10/22/24 Jesse Larson MD [address] [place] [address] [email or web address] Historical LMR Provider 06/19/17 Reji Granados MD [address] [place] [address] Historical LMR Provider 06/19/17 Jeanie Mohan MD [address] [place] [address] [facility] [address] [email or web address] Historical LMR Provider 06/19/17 Ramos Mcgrath DO [address] [place] [address] [email or web address] .[facility] Primary Oncologist Hematology and Oncology 12/15/21 Sophia Alan CNP [address] [place] [address] [email or web address] Nurse Practitioner Oncology 02/12/22 06/18/22 Viki Melendrez FNP [address] [place] [address] [email or web address] Nurse Practitioner Oncology 03/06/22 documented as of this encounter Additional Source Comments The information contained in this document represents components of the legal health record. It is not the complete legal health record.[facility]
--- OUTSIDE RECORDS SUMMARY | 2025-06-21 19:32 | XMS_ITS | Encounter Summary ---
Author Organization [facility] Address [address] [place] [address] Phone Care Team Providers Care Commercial Kitchen Service Technician Name Role Phone Jesse Larson MD Unavailable [phone] Reji Nam MD Unavailable [phone] Jeanie Mohan MD Unavailable Anthony Real MD Primary Care Provider [phone] Ramos Mcgrath DO Unavailable [phone] Carmita Santiago LOTTERIES AGENT Primary Care Provider Sophia Alan LOTTERIES AGENT Unavailable Viki Melendrez CLINICAL APPEALS REVIEWER Unavailable Farrah Camargo MD Primary Care Provider + Farrah Camargo MD Primary Care Provider + Farrah Camargo MD Primary Care Provider + Encounter Details Date Type Department Care Team (Late st Contact Info) Description 10/18/2019 Procedure Pass [facility] Emergency Radiology, Main [address], Floor 1 [place] [address] Social History Tobacco Use Types Packs/Day Years [...] Pass [facility] Endoscopy Admitting Dept Virtual Department [address] [place] [address] 06/30/2025 2:00 PM EDT Hospital Encounter [facility] Endoscopy Admitting Dept Virtual Department [address] [place] [address] Jose Marshall MD [address] [place] [address] [email or web address] 06/30/2025 2:00 PM EDT - 06/30/2025 2:30 PM EDT Surgery [facility] Endoscopy Admitting Dept Virtual Department [address] [place] [address] Jose Marshall MD [address] [place] [address] [email or web address] ESOPHAGOGASTRODUODENOSCOPY 07/08/2025 2:00 PM EST Office Visit [facility] at [facility] 30 [place] [address] Ramos Mcgrath DO 30 [place] [address] [email or web address] .[place] 07/11/2025 3:00 PM EST Office Visit [facility] [address] [place] [address] 3rd Floor, [address] [place] [address] Belkis Ratliff PA-C [address] [place] [address] [email or web address] 09/07/2025 2:15 PM EST Office Visit [facility] 10 [place] [address] Unknown, Unknown, Zabrina Mead, FINANCIAL SERVICES ASSOCIATE 10 [place] [address] Scheduled Procedures Name Priority Associated Diagnoses Date/Ti me ESOPHAGOGASTRODUODENOSCOPY Hx of colonic polyps 06/30/2025 2:00 PM EDT COLONOSCOPY Hx of colonic polyps 06/30/2025 2:00 PM EDT documented as of this encounter Visit Diagnoses Not on filedocumented in this encounter Additional Health Concerns Infection Onset Date Last Indicated Resolved Time CDiff-Risk 03/29/2025 03/29/2025 04/05/2025 1:21 AM EDT documented as of this encounter Care Teams Commercial Kitchen Service Technician Relationship Specialty Start Date End Date Anthony Real MD [address] [place] [phone] [email or web address] PCP - General Family Medicine 10/05/19 12/18/21 Carmita Santiago CNP [address] [place] [address] [email or web address] PCP - General Family Medicine 12/19/21 07/21/23 Farrah Camargo MD [address] [place] [address] [email or web address] PCP - General Family Medicine 07/22/23 12/29/23 Farrah Camargo MD [address] [place] [address] [email or web address] PCP - General Family Medicine 12/30/23 10/21/24 Farrah Camargo MD [address] [place] [address] [email or web address] PCP - General Family Medicine 10/22/24 Jesse Larson MD [address] [place] [address] [email or web address] Historical LMR Provider 06/19/17 2 Reji Nam MD [address] [place] [address] Historical LMR Provider 06/19/17 Jeanie Mohan MD [address] [place] [address] Orthopedics & Sports Medicine, [place] [address] [email or web address] Historical LMR Provider 06/19/17 Ramos Mcgrath DO [address] [place] [address] [email or web address].[place] .[facility] Primary Oncologist Hematology and Oncology 12/15/21 Sophia Alan CNP [address] [place] [address] [email or web address] Nurse Practitioner Oncology 02/12/22 06/18/22 Viki Melendrez FNP 30 [place] [address] [email or web address] Nurse Practitioner Oncology 03/06/22 documented as of this encounter Additional Source Comments The information contained in this document represents components of the legal health record. It is not the complete legal health record.[facility]
--- OUTSIDE RECORDS SUMMARY | 2025-06-21 19:32 | XMS_ITS | Encounter Summary ---
Author Organization [facility] Address [address] [place] [address] Phone Care Team Providers Care Window Shade Cutter And Mounter Name Role Phone Jeanie Mohan MD Unavailable Ramos Mcgrath DO Unavailable Carmita Santiago BASKETBALL ASSEMBLER Primary Care Provider Viki Melendrez FIRM ADMINISTRATOR Unavailable Farrah Camargo MD Primary Care Provider + Farrah Camargo MD Primary Care Provider + Farrah Camargo MD Primary Care Provider + Encounter Details Date Type Department Care Team (Late st Contact Info) Description 03/12/2023 Procedure Pass Non-Invasive Cardiology [address] [place] [address] Social History Tobacco Use Types Packs/Day Years [...] (Latest Contact Info) Description 06/30/2025 Procedure Pass [facility] Endoscopy Admitting Dept Virtual Department [address] [place] [address] 06/30/2025 2:00 PM EDT Hospital Encounter [facility] Endoscopy Admitting Dept Virtual Department [address] [place] [address] Jose Marshall MD [address] [place] [address] [email or web address] 06/30/2025 2:00 PM EDT - 06/30/2025 2:30 PM EDT Surgery [facility] Endoscopy Admitting Dept Virtual Department [address] [place] [address] Jose Marshall MD [address] [place] [address] [email or web address] ESOPHAGOGASTRODUODENOSCOPY 07/08/2025 2:00 PM EST Office Visit [facility] at [address] [address] Ramos Mcgrath DO 30 [place] [address] [email or web address] .[email or web address] 07/11/2025 3:00 PM EST Office Visit [facility] [address] [place] [address] 3rd Floor, [address] [place] [address] Belkis Ratliff PA-C [address] [place] [address] [email or web address] 09/07/2025 2:15 PM EST Office Visit [facility] 10 [place], [place] [phone] Unknown, Unknown, MD Mckeon, Zabrina Alford, EVAN 10 [place], [place] Scheduled Procedures Name Priority Associated Diagnoses Date/Ti me ESOPHAGOGASTRODUODENOSCOPY Hx of colonic polyps 06/30/2025 2:00 PM EDT COLONOSCOPY Hx of colonic polyps 06/30/2025 2:00 PM EDT documented as of this encounter Visit Diagnoses Not on filedocumented in this encounter Additional Health Concerns Infection Onset Date Last Indicated Resolved Time CDiff-Risk 03/29/2025 03/29/2025 04/05/2025 1:21 AM EDT documented as of this encounter Care Teams Window Shade Cutter And Mounter Relationship Specialty Start Date End Date Carmita Santiago CNP [address] [place] [address] [email or web address] PCP - General Family Medicine 12/19/21 07/21/23 Farrah Camargo MD [address] [place] [address] [email or web address] PCP - General Family Medicine 07/22/23 12/29/23 Farrah Camargo MD 30 [place] [address] [email or web address] PCP - General Family Medicine 12/30/23 10/21/24 Farrah Camargo MD [address] [place] [address] [email or web address] PCP - General Family Medicine 10/22/24 Jeanie Mohan MD [address] [place] [address] Orthopedics & Sports Medicine, [facility] [place] [address] [email or web address] Historical LMR Provider 06/19/17 Ramos Mcgrath DO 30 [place] [address] [email or web address] [email or web address] Primary Oncologist Hematology and Oncology 12/15/21 Viki Melendrez FNP 30 [place] [address] [email or web address] Nurse Practitioner Oncology 03/06/22 documented as of this encounter Additional Source Comments The information contained in this document represents components of the legal health record. It is not the complete legal health record.[facility]
--- OUTSIDE RECORDS SUMMARY | 2025-06-21 19:32 | XMS_ITS | Encounter Summary ---
Author Organization [facility] Address [address] [place] [address] Phone Care Team Providers Care Clothes Presser Name Role Phone Jeanie Mohan MD Unavailable Ramos Mcgrath DO Unavailable [phone] Viki Melendrez WATER SERVICE DISPATCHER Unavailable [phone] Farrah Camargo MD Primary Care Provider + Farrah Camargo MD Primary Care Provider + Encounter Details Date Type Department Care Team (Late st Contact Info) Description 12/30/2023 Procedure Pass [facility], Ct Scan - [address] [address] Social History Tobacco Use Types Packs/Day Years [...] 10:57 PM EDT Swati Armenta RN * [place] Suicide Severity Rating Scale (Screener/Recent Self-Report) Question [...] Pass [facility] Endoscopy Admitting Dept Virtual Department [address] [place] [address] 06/30/2025 2:00 PM EDT Hospital Encounter [facility] Endoscopy Admitting Dept Virtual Department [address] [place] [address] Jose Marshall MD [address] [place] [address] [email or web address] 06/30/2025 2:00 PM EDT - 06/30/2025 2:30 PM EDT Surgery [facility] Endoscopy Admitting Dept Virtual Department 30 [place] [address] Jose Marshall MD [address] [place] [address] [email or web address] ESOPHAGOGASTRODUODENOSCOPY 07/08/2025 2:00 PM EST Office Visit [facility] 30 [place] [address] Ramos Mcgrath DO 30 [place] [address] [email or web address] .[email or web address] 07/11/2025 3:00 PM EST Office Visit [facility] 3rd Floor, [address] [place] [address] Belkis Ratliff PA-C [address] [place] [address] [email or web address] 09/07/2025 2:15 PM EST Office Visit [facility] [address] [place] [address] Unknown, Unknown, Zabrina Mead, EVAN [address] [place] [address] Scheduled Procedures Name Priority Associated Diagnoses Date/Ti me ESOPHAGOGASTRODUODENOSCOPY Hx of colonic polyps 06/30/2025 2:00 PM EDT COLONOSCOPY Hx of colonic polyps 06/30/2025 2:00 PM EDT documented as of this encounter Visit Diagnoses Not on filedocumented in this encounter Additional Health Concerns Infection Onset Date Last Indicated Resolved Time CDiff-Risk 03/29/2025 03/29/2025 04/05/2025 1:21 AM EDT documented as of this encounter Care Teams Clothes Presser Relationship Specialty Start Date End Date Farrah Camargo MD 30 [place] [address] [email or web address] PCP - General Family Medicine 12/30/23 10/21/24 Farrah Camargo MD [address] [place] [address] [email or web address] - General Family Medicine 10/22/24 Jeanie Mohan MD [address] [place] [address] Orthopedics & Sports Medicine, [place] [address] [email or web address] Historical LMR Provider 06/19/17 Ramos Mcgrath DO 30 [place] [address] [email or web address] [email or web address] Primary Oncologist Hematology and Oncology 12/15/21 Viki Melendrez FNP 30 [place] [address] [email or web address] Nurse Practitioner Oncology 03/06/22 documented as of this encounter Additional Source Comments The information contained in this document represents components of the legal health record. It is not the complete legal health record.[facility]
--- OUTSIDE RECORDS SUMMARY | 2025-06-21 19:32 | XMS_ITS | Encounter Summary ---
Author Organization [facility] Address [address] [place] [address] Phone Care Team Providers Care Relief Pilot Name Role Phone Jeanie Mohan MD Unavailable Ramos Mcgrath DO Unavailable Carmita Santiago RESIDENCE HALL DIRECTOR Primary Care Provider Viki Melendrez BOAT ENGINE MECHANIC Unavailable Farrah Camargo MD Primary Care Provider + Farrah Camargo MD Primary Care Provider + Farrah Camargo MD Primary Care Provider + Encounter Details Date Type Department Care Team (Late st Contact Info) Description 01/19/2023 Procedure Pass [facility], Ct Scan - [address] [address] Social History Tobacco Use Types Packs/Day Years [...] [facility] Endoscopy Admitting Dept Virtual Department [address] [place] [address] 06/30/2025 2:00 PM EDT Hospital Encounter [facility] Endoscopy Admitting Dept Virtual Department [address] [place] [address] Jose Marshall MD [address] [place] [address] [email or web address] 06/30/2025 2:00 PM EDT - 06/30/2025 2:30 PM EDT Surgery [facility] Endoscopy Admitting Dept Virtual Department [address] [place] [address] Jose Marshall MD [address] [place] [address] [email or web address] ESOPHAGOGASTRODUODENOSCOPY 07/08/2025 2:00 PM EST Office Visit [facility] at [facility] 30 [place] [address] Ramos Mcgrath DO 30 [place] [address] [email or web address] .[email or web address].[email or web address] 07/11/2025 3:00 PM EST Office Visit [facility] [address] [place] [address] 3rd Floor, [address] [place] [address] Belkis Ratliff PA-C [address] [place] [address] [email or web address] 09/07/2025 2:15 PM EST Office Visit [facility] 10 [place] [address] Unknown, Unknown, Zabrina Mead, EVAN 10 [place] [address] Scheduled Procedures Name Priority Associated Diagnoses Date/Ti me ESOPHAGOGASTRODUODENOSCOPY Hx of colonic polyps 06/30/2025 2:00 PM EDT COLONOSCOPY Hx of colonic polyps 06/30/2025 2:00 PM EDT documented as of this encounter Visit Diagnoses Not on filedocumented in this encounter Additional Health Concerns Infection Onset Date Last Indicated Resolved Time CDiff-Risk 03/29/2025 03/29/2025 04/05/2025 1:21 AM EDT documented as of this encounter Care Teams Relief Pilot Relationship Specialty Start Date End Date Carmita Santiago CNP [address] [place] [address] [email or web address] PCP - General Family Medicine 12/19/21 07/21/23 Farrah Camargo MD 30 [place] [address] [email or web address] PCP - General Family Medicine 07/22/23 12/29/23 Farrah Camargo MD 30 [place] [address] [email or web address] PCP - General Family Medicine 12/30/23 10/21/24 Farrah Camargo MD [address] [place] [address] [email or web address] PCP - General Family Medicine 10/22/24 Jeanie Mohan MD [address] [place] [address] Orthopedics & Sports Medicine, [place] [address] [email or web address] Historical LMR Provider 06/19/17 Ramos Mcgrath DO 30 [place] [address] [email or web address] Primary Oncologist Hematology and Oncology 12/15/21 Viki Melendrez FNP 30 [place] [address] [email or web address] Nurse Practitioner Oncology 03/06/22 documented as of this encounter Additional Source Comments The information contained in this document represents components of the legal health record. It is not the complete legal health record.[facility]
--- OUTSIDE RECORDS SUMMARY | 2025-06-21 19:32 | XMS_ITS | Encounter Summary ---
Author Organization [facility] Address [address] [place] [address] Phone Care Team Providers Care Divisional Merchandising Manager Name Role Phone Jeanie Mohan MD Unavailable [phone] Ramos Mcgrath DO Unavailable [phone] Viki Melendrez HEAVY EQUIPMENT SALES MANAGER Unavailable [phone] Farrah Camargo MD Primary Care Provider + Farrah Camargo MD Primary Care Provider + Encounter Details Date Type Department Care Team (Late st Contact Info) Description 12/30/2023 Procedure Pass [facility], Ct Scan - [address] [address] Social History Tobacco Use Types Packs/Day Years [...] 10:57 PM EDT Swati Armenta RN * [place] Suicide Severity Rating Scale (Screener/Recent Self-Report) Question [...] Pass [facility] Endoscopy Admitting Dept Virtual Department [address] [place] [address] 06/30/2025 2:00 PM EDT Hospital Encounter [facility] Endoscopy Admitting Dept Virtual Department [address] [place] [address] Jose Marshall MD [address] [place] [address] [email or web address] 06/30/2025 2:00 PM EDT - 06/30/2025 2:30 PM EDT Surgery [facility] Endoscopy Admitting Dept Virtual Department 30 [place] [address] Jose Marshall MD [address] [place] [address] [email or web address] ESOPHAGOGASTRODUODENOSCOPY 07/08/2025 2:00 PM EST Office Visit [facility] [place] 30 [place] [address] Ramos Mcgrath DO 30 [place] [address] [email or web address] .[email or web address] 07/11/2025 3:00 PM EST Office Visit [facility] [address] [facility] 3rd Floor, [address] [place] [address] Belkis Ratliff PA-C [address] [place] [address] [email or web address] 09/07/2025 2:15 PM EST Office Visit [facility] [address] [place] [address] Unknown, Unknown, Zabrina Mead, EVAN [address] [place] [address] Scheduled Procedures Name Priority Associated Diagnoses Date/Ti me ESOPHAGOGASTRODUODENOSCOPY Hx of colonic polyps 06/30/2025 2:00 PM EDT COLONOSCOPY Hx of colonic polyps 06/30/2025 2:00 PM EDT documented as of this encounter Visit Diagnoses Not on filedocumented in this encounter Additional Health Concerns Infection Onset Date Last Indicated Resolved Time CDiff-Risk 03/29/2025 03/29/2025 04/05/2025 1:21 AM EDT documented as of this encounter Care Teams Divisional Merchandising Manager Relationship Specialty Start Date End Date Farrah Camargo MD 30 [place] [address] [email or web address] PCP - General Family Medicine 12/30/23 10/21/24 Farrah Camargo MD [address] [place] [address] [email or web address] PCP - General Family Medicine 10/22/24 Jeanie Mohan MD [address] [place] [address] Orthopedics & Sports Medicine, [place] [address] [email or web address] Historical LMR Provider 06/19/17 Ramos Mcgrath DO 30 [place] [address] [email or web address] FANG Primary Oncologist Hematology and Oncology 12/15/21 Viki Melendrez FNP 30 [place] [address] [email or web address] Nurse Practitioner Oncology 03/06/22 documented as of this encounter Additional Source Comments The information contained in this document represents components of the legal health record. It is not the complete legal health record.[facility]
--- OUTSIDE RECORDS SUMMARY | 2025-06-21 19:32 | XMS_ITS | Encounter Summary ---
Author Organization [facility] Address [address] [place] [address] Phone Care Team Providers Care Automobile Travel Club Counselor Name Role Phone Jeanie Mohan MD Unavailable [phone] Anthony Real MD Primary Care Provider [phone] Ramos Mcgrath DO Unavailable [phone] Carmita Santiago IRONWORKER FOREMAN Primary Care Provider Sophia Alan IRONWORKER FOREMAN Unavailable Viki Melendrez HISTORICAL MANUSCRIPTS CURATOR Unavailable [phone] Farrah Camargo MD Primary Care Provider + Farrah Camargo MD Primary Care Provider + Farrah Camargo MD Primary Care Provider + Encounter Details Date Type Department Care Team (Late st Contact Info) Description 12/14/2021 Ancillary Orders [facility],Outside Imaging [address] [place], [place] [phone] System, Provider Not In, [facility] [address] [address] Social History Tobacco Use Types Packs/Day Years [...] Pass [facility] Endoscopy Admitting Dept Virtual Department [address] [place] [address] 06/30/2025 2:00 PM EDT Hospital Encounter [facility] Endoscopy Admitting Dept Virtual Department [address] [place] [address] Jose Marshall MD [address] [place] [address] [email or web address] 06/30/2025 2:00 PM EDT - 06/30/2025 2:30 PM EDT Surgery [facility] Endoscopy Admitting Dept Virtual Department [address] [place] [address] Jose Marhsall MD [address] [place] [address] [email or web address] ESOPHAGOGASTRODUODENOSCOPY 07/08/2025 2:00 PM EST [facility] 30 [place] [address] Ramos Mcgrath DO 30 [place] [address] [email or web address] .[email or web address].[facility] 07/11/2025 3:00 PM EST Office Visit [facility] [address] [facility] 3rd Floor, [address] [place] [address] Belkis Ratliff PA-C [address] [place] [address] [email or web address] 09/07/2025 2:15 PM EST Office Visit [facility] 10 [place] [address] Unknown, Unknown, Zabrina Mead NP 10 [place] [address] Scheduled Procedures Name Priority Associated Diagnoses Date/Ti me ESOPHAGOGASTRODUODENOSCOPY Hx of colonic polyps 06/30/2025 2:00 PM EDT COLONOSCOPY Hx of colonic polyps 06/30/2025 2:00 PM EDT documented as of this encounter Results * CT Chest Outside (No Interpretation) (10/25/2021 12:00 AM EST) Narrative SYSTEMGENERATED, DOCUMENTATION - 12/14/2021 4:08 PM EDT This study is for PACS storage only and not for interpretation. us Provider Not In System PhD IMG OUTSIDE IMAGING W /OUT INTERPRETATION Final Result documented in this encounter Visit Diagnoses Not on filedocumented in this encounter Additional Health Concerns Infection Onset Date Last Indicated Resolved Time CDiff-Risk 03/29/2025 03/29/2025 04/05/2025 1:21 AM EDT documented as of this encounter Care Teams Automobile Travel Club Counselor Relationship Specialty Start Date End Date Anthony Real MD [address] [place] [phone] [email or web address] PCP - General Family Medicine 10/05/19 12/18/21 Carmita Santiago CNP 10 [place] [address] [email or web address] PCP - General Family Medicine 12/19/21 07/21/23 Farrah Camargo MD [address] [place] [address] [email or web address] - General Family Medicine 07/22/23 12/29/23 Farrah Camargo MD 30 [place] [address] [email or web address] PCP - General Family Medicine 12/30/23 10/21/24 Farrah Camargo MD [address] [place] [address] [email or web address] PCP - General Family Medicine 10/22/24 Jeanie Mohan MD [address] [place] [address] Orthopedics & Sports Medicine, [place] [address] [email or web address] Historical LMR Provider 06/19/17 Ramos Mcgrath DO [address] [place] [address] [email or web address]H [facility] Primary Oncologist Hematology and Oncology 12/15/21 Sophia Alan CNP [address] [place] [address] Nurse Practitioner Oncology 02/12/22 06/18/22 Viki Melendrez FNP 30 [place] [address] Nurse Practitioner Oncology 03/06/22 documented as of this encounter Additional Source Comments The information contained in this document represents components of the legal health record. It is not the complete legal health record.[facility]
--- OUTSIDE RECORDS SUMMARY | 2025-06-21 19:32 | XMS_ITS | Encounter Summary ---
Author Organization [facility] Address [address] [place] [address] Phone Care Team Providers Care Ecological Technical Officer Name Role Phone Jeanie Mohan MD Unavailable Ramos Mcgrath DO Unavailable Viki Melendrez SUMMER LAW CLERK Unavailable Farrah Camargo MD Primary Care Provider + Farrah Camargo MD Primary Care Provider + Farrah Camargo MD Primary Care Provider + Encounter Details Date Type Department Care Team (Late st Contact Info) Description 09/10/2023 Procedure Pass Non-Invasive Cardiology [address] [place] [address] Social History Tobacco Use Types Packs/Day Years [...] Pass [facility] Endoscopy Admitting Dept Virtual Department [address] [place] [address] 06/30/2025 2:00 PM EDT Hospital Encounter [facility] Endoscopy Admitting Dept Virtual Department [address] [place] [address] Jose Marshall MD [address] [place] [address] [email or web address] 06/30/2025 2:00 PM EDT - 06/30/2025 2:30 PM EDT Surgery [facility] Endoscopy Admitting Dept Virtual Department [address] [place] [address] Jose Marshall MD [address] [place] [address] [email or web address] ESOPHAGOGASTRODUODENOSCOPY 07/08/2025 2:00 PM EST Office Visit [facility] at [address] [address] Ramos Mcgrath DO [address] [place] [address] [email or web address] 07/11/2025 3:00 PM EST Office Visit [facility] [address] [facility] 3rd Floor, [address] [place] [address] Belkis Ratliff PA-C [address] [place] [address] [email or web address] 09/07/2025 2:15 PM EST Office Visit [facility] 10 [place] [address] Unknown, Unknown, MD Mckeon, Zabrina Alford, ASSURANCE SENIOR MANAGER INSURANCE 10 [place] [address] Scheduled Procedures Name Priority Associated Diagnoses Date/Ti me ESOPHAGOGASTRODUODENOSCOPY Hx of colonic polyps 06/30/2025 2:00 PM EDT COLONOSCOPY Hx of colonic polyps 06/30/2025 2:00 PM EDT documented as of this encounter Visit Diagnoses Not on filedocumented in this encounter Additional Health Concerns Infection Onset Date Last Indicated Resolved Time CDiff-Risk 03/29/2025 03/29/2025 04/05/2025 1:21 AM EDT documented as of this encounter Care Teams Ecological Technical Officer Relationship Specialty Start Date End Date Farrah Camargo MD [address] [place] [address] [email or web address] PCP - General Family Medicine 07/22/23 12/29/23 Farrah Camargo MD [address] [place] [address] [email or web address] PCP - General Family Medicine 12/30/23 10/21/24 Farrah Camargo MD 70 [place] [address] [email or web address] PCP - General Family Medicine 10/22/24 Jeanie Mohan MD [address] [place] [address] Orthopedics & Sports Medicine, [facility] [place] [address] [email or web address] Historical LMR Provider 06/19/17 Ramos Mcgrath DO [address] [place] [address] [email or web address] Primary Oncologist Hematology and Oncology 12/15/21 Viki Melendrez FNP [address] [place] [address] [email or web address] Nurse Practitioner Oncology 03/06/22 documented as of this encounter Additional Source Comments The information contained in this document represents components of the legal health record. It is not the complete legal health record.[facility]
--- OUTSIDE RECORDS SUMMARY | 2025-06-21 19:32 | XMS_ITS | Encounter Summary ---
Author Organization [facility] Address [address] [place] [address] Phone Care Team Providers Care Security Shift Manager Name Role Phone Jeanie Mohan MD Unavailable [phone] Ramos Mcgrath DO Unavailable [phone] Carmita Santiago SECURITY GUARD Primary Care Provider Viki Melendrez HAIRSPRING VIBRATOR Unavailable Farrah Camargo MD Primary Care Provider + Farrah Camargo MD Primary Care Provider + Farrah Camargo MD Primary Care Provider + Encounter Details Date Type Department Care Team (Late st Contact Info) Description 06/26/2023 Procedure Pass OR Admitting Dept - Virtual Department 30 [place] [address] Social History Tobacco Use Types Packs/Day Years [...] Date of Assessment Author No Risk Indicated 06/26/2023 12:44 PM EDT Broderick Garcia RN * [place] Suicide Severity Rating Scale (Screener/Recent Self-Report) Question Answer Date of Assessment Author 1. Wish to be (Past 1 Month) No 06/26/2023 12:44 PM EDT Broderick Garcia RN 2. Non-Specific Active Suici greyson Thoughts (Past 1 Month) No 06/26/2023 12:44 PM EDT Candace Garcia RN 6. Suicidal Behavior (Lifetime) No 12:44 PM EDT Broderick Garcia RN documented as of this encounter Plan of Treatment Upcoming Encounters Date Type Department Care Team (Latest Contact Info) Description 06/30/2025 Procedure Pass [facility] Endoscopy Admitting Dept Virtual Department [address] [place] [address] 06/30/2025 2:00 PM EDT Hospital Encounter [facility] Endoscopy Admitting Dept Virtual Department [address] [place] [address] Jose Marshall MD [address] [place] [address] [email or web address] 06/30/2025 2:00 PM EDT - 06/30/2025 2:30 PM EDT Surgery [facility] Endoscopy Admitting Dept Virtual Department [address] [place] [address] Jose Marshall MD [address] [place] [address] [email or web address] ESOPHAGOGASTRODUODENOSCOPY 07/08/2025 2:00 PM EST Office Visit [facility] [place] [address] [place] [address] Ramos Mcgrath DO 30 [place] [address] [email or web address] .[facility] 07/11/2025 3:00 PM EST Office Visit [facility] [address] [facility] 3rd Floor, [address] [place] [address] Belkis Ratliff PA-C [address] [place] [address] [email or web address] 09/07/2025 2:15 PM EST Office Visit [facility] [address] [place] [address] Unknown, Unknown, Zabrina Mead, EVAN [address] [place] [address] Scheduled Procedures Name Priority Associated Diagnoses Date/Ti ny ESOPHAGOGASTRODUODENOSCOPY Hx of colonic polyps 06/30/2025 2:00 PM EDT COLONOSCOPY Hx of colonic polyps 06/30/2025 2:00 PM EDT documented as of this encounter Visit Diagnoses Not on filedocumented in this encounter Additional Health Concerns Infection Onset Date Last Indicated Resolved Time CDiff-Risk 03/29/2025 03/29/2025 04/05/2025 1:21 AM EDT documented as of this encounter Care Teams Security Shift Manager Relationship Specialty Start Date End Date Carmita Santiago CNP 10 [place] [address] PCP - General Family Medicine 12/19/21 07/21/23 Farrah Camargo MD 30 [place] [address] [email or web address] PCP - General Family Medicine 07/22/23 12/29/23 Farrah Camargo MD 30 [place] [address] [email or web address] PCP - General Family Medicine 12/30/23 10/21/24 Farrah Camargo MD [address] [place] [address] [email or web address] PCP - General Family Medicine 10/22/24 Jeanie Mohan MD [address] [place] [address] Orthopedics & Sports Medicine, [facility] [place] [address] [email or web address] Historical LMR Provider 06/19/17 Ramos Mcgrath DO [address] [place] [address] [email or web address] Primary Oncologist Hematology and Oncology 12/15/21 Viki Melendrez, ADRY [address] [place] [address] [email or web address] Nurse Practitioner Oncology 03/06/22 documented as of this encounter Additional Source Comments The information contained in this document represents components of the legal health record. It is not the complete legal health record.[facility]
--- OUTSIDE RECORDS SUMMARY | 2025-06-21 19:32 | XMS_ITS | Encounter Summary ---
Author Organization [facility] Address [address] [place] [address] Phone Care Team Providers Care Powder Worker Name Role Phone Jeanie Mohan MD Unavailable [phone] Ramos Mcgrath DO Unavailable [phone] Viki Melendrez TRANSPLANT RN Unavailable [phone] Farrah Camargo MD Primary Care Provider + Farrah Camargo MD Primary Care Provider + Reason for Referral * MRI/CAT Scan - Closed Specialty Diagnoses / Procedures Referred By Contac t Referred To Contact Radiology Diagnoses Cigarette smoker Procedures CT Chest Lung Cancer Screening Initial Or Annual Farrah Camargo MD [address] [place] [address] Phone: tel: fax: [email or web address] Referral ID Status Reason Start Date Expiration Date Visits Re quested Visits Authorized [id number] Closed 08/02/2024 08/02/2025 1 1 Encounter Details Date Type Department Care Team (Latest Contact Info) Description 08/02/2024 Transcribe Orders [facility] Department [address] [place] [address] Farrah Camargo MD [address] [place] [address] [email or web address] Cigarette smoker (Primary Dx) Social History Tobacco Use Types [...] Pass [facility] Endoscopy Admitting Dept Virtual Department [address] [place] [address] 06/30/2025 2:00 PM EDT Hospital Encounter [facility] Endoscopy Admitting Dept Virtual Department [address] [place] [phone] Jose Marshall MD [address] [address] [email or web address] 06/30/2025 2:00 PM EDT - 06/30/2025 2:30 PM EDT Surgery [facility] Endoscopy Admitting Dept Virtual Department [address] [place] [address] Jose Marshall MD [address] [address] [email or web address] ESOPHAGOGASTRODUODENOSCOPY 07/08/2025 2:00 PM EST Office Visit [facility] [place] 30 [place] [address] Ramos Mcgrath DO 30 [place] [address] [email or web address] 07/11/2025 3:00 PM EST Office Visit [facility] [address] [facility] 3rd Floor, [address] [place] [address] Belkis Ratliff PA-C 50 [place] [address] [email or web address] 09/07/2025 2:15 PM EST Office Visit [facility] 10 [place] [address] Unknown, Unknown, MD Mckeon, Zabrina Alford, EVAN 10 [place] [address] Scheduled Procedures Name Priority Associated Diagnoses Date/Ti me ESOPHAGOGASTRODUODENOSCOPY Hx of colonic polyps 06/30/2025 2:00 PM EDT COLONOSCOPY Hx of colonic polyps 06/30/2025 2:00 PM EDT documented as of this encounter Results * CT CHEST LUNG CANCER SCREENING INITIAL [...] clinician's provided indication for this examination in [facility]: Lung Cancer Screening - CURRENT smoker (20+ [...] clinician's provided indication for this examination in [facility]:Lung Cancer Screening - CURRENT smoker (20+ [...] the Lung-RADS categories can be found at:[email or web address] Farrah Camargo MD IMG CT CHEST Final Re sult documented in this encounter Visit Diagnoses Diagnosis Cigarette smoker- Primary Tobacco use disorder Cigarette smoker Tobacco use disorder Hx of colonic polyps Personal history of colonic polyps documented in this encounter Additional Health Concerns Infection Onset Date Last Indicated Resolved Time CDiff-Risk 03/29/2025 03/29/2025 04/05/2025 1:21 AM EDT documented as of this encounter Care Teams Powder Worker Relationship Specialty Start Date End Date Farrah Camargo MD [address] [place] [address] [email or web address] PCP - General Family Medicine 12/30/23 10/21/24 Farrah Camargo MD [address] [place] [address] [email or web address] PCP - General Family Medicine 10/22/24 Jeanie Mohan MD [address] [place] [address] Orthopedics & Sports [place], [place] [address] [email or web address] Historical LMR Provider 06/19/17 Ramos Mcgrath DO [address] [place] [address] [email or web address] Primary Oncologist Hematology and Oncology 12/15/21 Viki Melendrez FNP 30 [place] [address] [email or web address] Nurse Practitioner Oncology 03/06/22 documented as of this encounter Additional Source Comments The information contained in this document represents components of the legal health record. It is not the complete legal health record.[facility]
--- OUTSIDE RECORDS SUMMARY | 2025-06-21 19:32 | XMS_ITS | Encounter Summary ---
Author Organization [facility] Address [address] [place] [address] Phone Care Team Providers Care Tin Cutter Name Role Phone Jeanie Mohan MD Unavailable Ramos Mcgrath DO Unavailable Carmita Santiago ROLL UP OPERATOR Primary Care Provider Viki Melendrez INSIDE SOLAR SALES CONSULTANT Unavailable Farrah Camargo MD Primary Care Provider + Farrah Camargo MD Primary Care Provider + Farrah Camargo MD Primary Care Provider + Encounter Details Date Type Department Care Team (Late st Contact Info) Description 01/19/2023 Procedure Pass [facility], Ct Scan - [address] [address] Social History Tobacco Use Types Packs/Day Years [...] Pass [facility] Endoscopy Admitting Dept Virtual Department [address] [place] [address] 06/30/2025 2:00 PM EDT Hospital Encounter [facility] Endoscopy Admitting Dept Virtual Department [address] [place] [address] Jose Marshall MD [address] [place] [address] [email or web address] 06/30/2025 2:00 PM EDT - 06/30/2025 2:30 PM EDT Surgery [facility] Endoscopy Admitting Dept Virtual Department [address] [place] [address] Jose Marshall MD [address] [place] [address] [email or web address] ESOPHAGOGASTRODUODENOSCOPY 07/08/2025 2:00 PM EST Office Visit [facility] 30 [place] [address] Ramos Mcgrath DO 30 [place] [address] [email or web address] 07/11/2025 3:00 PM EST Office Visit [facility] [address] [place] [address] 3rd Floor, [address] [place] [address] Belkis Ratliff PA-C [address] [place] [address] [email or web address] 09/07/2025 2:15 PM EST Office Visit [facility] 10 [place] [address] Unknown, Unknown, Zabrina Mead, EVAN 10 [place] [address] Scheduled Procedures Name Priority Associated Diagnoses Date/Ti me ESOPHAGOGASTRODUODENOSCOPY Hx of colonic polyps 06/30/2025 2:00 PM EDT COLONOSCOPY Hx of colonic polyps 06/30/2025 2:00 PM EDT documented as of this encounter Visit Diagnoses Not on filedocumented in this encounter Additional Health Concerns Infection Onset Date Last Indicated Resolved Time CDiff-Risk 03/29/2025 03/29/2025 04/05/2025 1:21 AM EDT documented as of this encounter Care Teams Tin Cutter Relationship Specialty Start Date End Date Carmita Santiago CNP [address] [place] [address] [email or web address] PCP - General Family Medicine 12/19/21 07/21/23 Farrah Camargo MD 30 [place] [address] [email or web address] PCP - General Family Medicine 07/22/23 12/29/23 Farrah Camargo MD 30 [place] [address] [email or web address] [email or web address] - General Family Medicine 12/30/23 10/21/24 Farrah Camargo MD [address] [place] [address] [email or web address] [email or web address] - General Family Medicine 10/22/24 Jeanie Mohan MD [address] [place] [address] Orthopedics & Sports Medicine, [place] [address] [email or web address] Historical LMR Provider 06/19/17 Ramos Mcgrath DO 30 [place] [address] [email or web address] Primary Oncologist Hematology and Oncology 12/15/21 Viki Melendrez FNP [address] [place] [address] [email or web address] Nurse Practitioner Oncology 03/06/22 documented as of this encounter Additional Source Comments The information contained in this document represents components of the legal health record. It is not the complete legal health record.[facility]
== END 2025-06-21 15:12 | disposition home or self-care (01) ==
PROVIDERS: PCP Family Medicine; Visit Provider Internal Medicine
DX: J44.9 Chronic obstructive pulmonary disease, unspecified (principal); G47.34 Idiopathic sleep related nonobstructive alveolar hypoventilation; F17.200 Nicotine dependence, unspecified, uncomplicated; G47.33 Obstructive sleep apnea (adult) (pediatric)
CPT/HCPCS: 99213